=== PATIENT | male | born 1945 | race Caucasian/White ===

== ENCOUNTER 2018-10-06 18:26 | Observation (INO) | payer MEDICARE, BC ==
[~2018-10-06] VITALS: Ht 175.3 cm; Wt 84.4 kg
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
[2018-10-06 19:00] VITALS: BP_SYST 167; BP_DIAS 10; BP_DIAS 70
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
[2018-10-06] MEDS ORDERED: CARV3.122 PO (19:31)
[2018-10-06] MEDS ORDERED: INSU100V16 (19:31)
[2018-10-06] MEDS ORDERED: TACR0.5C6 PO (19:31)
[2018-10-06] MEDS ORDERED: TAMSULOSIN (19:31)
[2018-10-06] MEDS ORDERED: SIMV40TA4 PO (19:31)
[2018-10-06] MEDS ORDERED: MYCO360T3 PO (19:31)
[2018-10-06] MEDS ORDERED: SIRO1TAB4 (19:31)
[2018-10-06] MEDS ORDERED: FINA5TAB6 PO (19:31)
[2018-10-06] MEDS ORDERED: CLOP75TA28 PO (19:31)
[2018-10-06] MEDS ORDERED: CARV6.252 (19:31)
[2018-10-06] MEDS ORDERED: LEVO175T2 PO (19:31)
[2018-10-06 19:43] LABS: HEMOGLOBIN 13.8 G/DL (13.3-17.7); MEAN PLATELET VOLUME 9.7 FL (7.4-10.4); WHITE BLOOD COUNT 11.8 10^3/uL (4.3-11.0)
[2018-10-06 20:00] VITALS: BP 117/58
[2018-10-06 20:48] LABS: BILIRUBIN,TOTAL 0.4 MG/DL (0.1-1.0); CREATININE SERUM 1.51 MG/DL (0.60-1.30)
[2018-10-06 20:49] LABS: ALBUMIN 3.8 GM/DL (3.2-4.5); TOTAL PROTEIN 8.1 GM/DL (6.4-8.2)
[2018-10-06 21:00] VITALS: BP 156/84
[2018-10-06] MEDS ORDERED: DOCU-143 PO (21:35)
[2018-10-06] MEDS ORDERED: ASPIRIN 81 MG CHEW (CHILDREN'S ASA) PO STA (22:08)
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
[2018-10-07 01:01] VITALS: BP 104/58
[2018-10-07 04:59] VITALS: BP 145/77
[2018-10-07 06:07] LABS: BASOPHILS % (AUTO) 0 % (0-10); EOSINOPHILS # (AUTO) 0.2 10^3/uL (0.0-0.3); EOSINOPHILS % (AUTO) 2 % (0-10); HEMATOCRIT 41 % (40-54); HEMOGLOBIN 12.9 G/DL (13.3-17.7); LYMPHOCYTES # (AUTO) 1.6 X 10^3 (1.0-4.0); LYMPHOCYTES % (AUTO) 15 % (12-44); MEAN CORPUSCULAR HEMOGLOBIN 29 PG (25-34); MEAN CORPUSCULAR HGB CONC 32 G/DL (32-36); MEAN CORPUSCULAR VOLUME 91 FL (80-99); MEAN PLATELET VOLUME 9.6 FL (7.4-10.4); MONOCYTES # (AUTO) 1.6 X 10^3 (0.0-1.0); MONOCYTES % (AUTO) 15 % (0-12); NEUTROPHILS # (AUTO) 7.2 X 10^3 (1.8-7.8); NEUTROPHILS % (AUTO) 68 % (42-75); PLATELET COUNT 230 10^3/uL (130-400); RED CELL DISTRIBUTION WIDTH 13.6 % (10.0-14.5); WHITE BLOOD COUNT 10.6 10^3/uL (4.3-11.0)
[2018-10-07 06:35] LABS: ALBUMIN 3.5 GM/DL (3.2-4.5); BILIRUBIN,TOTAL 0.4 MG/DL (0.1-1.0); CALCIUM 9.6 MG/DL (8.5-10.1); CREATININE SERUM 1.52 MG/DL (0.60-1.30); POTASSIUM 5.7 MMOL/L (3.6-5.0); TOTAL PROTEIN 7.1 GM/DL (6.4-8.2)
[2018-10-07 08:00] VITALS: BP 142/65
[2018-10-07] MEDS ORDERED: FLU QUADRIvalent (5+ YOA) 2018-2019 (AFLURIA) 0.5 ML IM ONE (08:00)
[2018-10-07] MEDS ORDERED: TAMS0.4C98 PO (09:09)
[2018-10-07] MEDS ORDERED: FAMO-119 PO (09:09)
[2018-10-07] MEDS ORDERED: ASPI-983 PO (09:09)
--- NOTE | 2018-10-07 09:12 | NUR ---
SPOKE WITH THE PATIENT ABOUT HIS MEDICATIONS, HE HAD A LIST WITH HIM WELL WE COMPARED WITH THE EXT MED HX. PATIENT FILLED SIROLIMUS 1MG #60 10-05-18, THEY HAVE NOT RECEIVED OR STARTED THIS YET BUT IT IS TO REPLACE THE MYFORTIC ACCORDING TO THE PATIENTS FAMILY. I DID NOT INCLUDE IT ON THE MED REC AT THIS TIME SINCE IT HAS NOT BEEN STARTED. IT IS COMING TO THE PATIENT VIA MAIL ORDER. HE TAKES THE FOLLOWING OTC: ASPIRIN 81MG DAILY COLACE 100MG BID PEPCID BID
[2018-10-07 10:19] VITALS: BP 142/65
[2018-10-07 12:00] VITALS: BP 139/70
[2018-10-07] MEDS ORDERED: INSULIN VIAL ASPART for PUMP 100 UNIT/ML VIAL SQ SCH (12:00)
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
[2018-10-07] MEDS ORDERED: ENOXAPARIN 40 MG/0.4 ML (LOVENOX) SYR SQ SCH (13:00)
--- NOTE | 2018-10-07 14:38 | Discharge Instructions ---
Discharge [facility] Discharge Medications Continued Medications: Aspirin (Aspirin EC) 81 Mg Tablet.dr 81 MG PO DAILY, TAB Carvedilol (Carvedilol) 3.125 Mg Tablet 3.125 MG PO BID, TAB Clopidogrel Bisulfate (Clopidogrel) 75 Mg Tablet 75 MG PO DAILY, TAB Docusate Sodium (Colace) 100 Mg Capsule 100 MG PO BID, CAP Famotidine (Pepcid) 20 Mg Tablet 20 MG PO BID, TAB Finasteride (Finasteride) 5 Mg Tablet 5 MG PO DAILY, TAB Insulin Aspart (Novolog) 100 Unit/1 Ml Susp PER INSULIN PUMP, EA Levothyroxine Sodium (Synthroid) 175 Mcg Tablet 175 MCG PO DAILY, TAB Mycophenolate Sodium (Mycophenolic Acid) 360 Mg Tablet.dr 360 MG PO BID, TAB Simvastatin (Simvastatin) 40 Mg Tablet 40 MG PO HS, TAB Tacrolimus (Tacrolimus) 0.5 Mg Capsule 1 MG PO BID, CAP TAKES 2 (0.5MG) CAPSULES Tamsulosin HCl (Flomax) 0.4 Mg Cap 0.4 MG PO HS, CAP Patient Instructions Goal/Follow Up Appt: Follow up with Belia Villatoro on Friday 10/13 at 11:20 am. Recommend calling [facility] to discuss pump settings before visit in November. Follow up with Cardiology as soon as possible. Patient Instructions: Have labwork drawn at clinic tomorrow to recheck potassium and renal function. Return to [facility] For: Fever, confusion, shortness of breath, chest pain Activity & Diet Discharge Diet: ADA Diet Activity as Tolerated: Yes ECHO GEE MD Oct 07, 2018 13:28
[2018-10-07 15:15] VITALS: BP 139/70
--- NOTE | 2018-10-07 15:15 | NUR ---
MARLA CUEVAS demonstrates understanding of discharge instructions and accurately returns instructions upon questioning. Copy of Post-Discharge Instructions given to PT. MARLA CUEVAS is able to manage continuing needs after discharge. Patients belongings returned to PT. Patient discharged from [facility] on 10/07/18 at 15:15. MARLA CUEVAS left floor via W/C, accompanied by STAFF AND FAMILY PER AUTO.
[2018-10-07] MEDS ORDERED: MYCOPHENOLATE SODIUM 360 MG PO SCH (21:00)
[2018-10-07] MEDS ORDERED: CARVEDILOL 3.125 MG (COREG) TABLET PO SCH (21:00)
[2018-10-07] MEDS ORDERED: SIMvastatin 40 MG (ZOCOR) TAB PO SCH (21:00)
[2018-10-07] MEDS ORDERED: TAMSULOSIN 0.4 MG (FLOMAX) CAP PO SCH (21:00)
[2018-10-07] MEDS ORDERED: TACROLIMUS 0.5 MG (PROGRAF) CAP NON-FORMULARY PO SCH (21:00)
[2018-10-07] MEDS ORDERED: DOCUSATE SODIUM 100 MG (COLACE) CAP PO SCH (21:00)
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
[2018-10-08] MEDS ORDERED: LEVOTHYROXINE 75 MCG (LEVOTHROID) TABLET PO SCH (06:30)
[2018-10-08] MEDS ORDERED: LEVOTHYROXINE 100 MCG (LEVOTHROID) TAB PO SCH (06:30)
[2018-10-08] MEDS ORDERED: FAMOTIDINE 20 MG (PEPCID) TABLET PO SCH (09:00)
[2018-10-08] MEDS ORDERED: CLOPIDOGREL 75 MG (PLAVIX) TABLET PO SCH (09:00)
[2018-10-08] MEDS ORDERED: ASPIRIN E.C. 81 MG (ECOTRIN) TAB PO SCH (09:00)
[2018-10-08] MEDS ORDERED: FINASTERIDE (PROSCAR) 5 MG TAB PO SCH (09:00)
== END 2018-10-07 14:38 | disposition home or self-care (01) ==
LOC: EDUNIT# 18:26 → ER FS 18:29 → 4TH 22:55
PROVIDERS: ADMIT Family Medicine; ATTEND Family Medicine
DX: E11.65 Type 2 diabetes mellitus with hyperglycemia (principal); I25.10 Atherosclerotic heart disease of native coronary artery without angina pectoris; N18.9 Chronic kidney disease, unspecified; E87.5 Hyperkalemia; E78.5 Hyperlipidemia, unspecified; I44.7 Left bundle-branch block, unspecified; H60.12 Cellulitis of left external ear; Z79.899 Other long term (current) drug therapy; Z88.0 Allergy status to penicillin; Z79.4 Long term (current) use of insulin; Z94.0 Kidney transplant status; Z79.82 Long term (current) use of aspirin; Z95.5 Presence of coronary angioplasty implant and graft; Z87.891 Personal history of nicotine dependence
CPT/HCPCS: 36415; 71045; 80053; 82962; 84132; 84484; 85025; 85027; G0378

== ENCOUNTER → 2018-11-05 | Outpatient (CLI) | payer MEDICARE ==
[~2018-11-05] MED LIST: ASPI-983 PO; CARV3.122 PO; CARV6.252; CLOP75TA28 PO; DOCU-143 PO; FAMO-119 PO; FINA5TAB6 PO; INSU100V16; LEVO175T2 PO; MYCO360T3 PO; SIMV40TA4 PO; SIRO1TAB4; TACR0.5C6 PO; TAMS0.4C98 PO; TAMSULOSIN
== END ==
LOC: LAB 14:56
PROVIDERS: ATTEND Surgery
DX: E11.622 Type 2 diabetes mellitus with other skin ulcer (principal); L97.222 Non-pressure chronic ulcer of left calf with fat layer exposed; I87.332 Chronic venous hypertension (idiopathic) with ulcer and inflammation of left lower extremity; I87.321 Chronic venous hypertension (idiopathic) with inflammation of right lower extremity; I70.242 Atherosclerosis of native arteries of left leg with ulceration of calf; Z94.0 Kidney transplant status; Z57.5 Occupational exposure to toxic agents in other industries
CPT/HCPCS: 36415; 83036

== ENCOUNTER → 2018-11-05 | Outpatient (CLI) | payer MEDICARE | LOC: WOUNDCARE 13:04 | PROVIDERS: ATTEND Surgery | DX: E11.622 Type 2 diabetes mellitus with other skin ulcer (principal); L97.222 Non-pressure chronic ulcer of left calf with fat layer exposed; I87.332 Chronic venous hypertension (idiopathic) with ulcer and inflammation of left lower extremity; I87.321 Chronic venous hypertension (idiopathic) with inflammation of right lower extremity; I70.242 Atherosclerosis of native arteries of left leg with ulceration of calf; Z94.0 Kidney transplant status; Z57.5 Occupational exposure to toxic agents in other industries | CPT/HCPCS: 11042; 11045; 87070; 87075; 87077; 87186; 87205 ==

== ENCOUNTER → 2018-11-12 | Outpatient (CLI) | payer MEDICARE | LOC: WOUNDCARE 08:37 | PROVIDERS: ATTEND Surgery | DX: E11.622 Type 2 diabetes mellitus with other skin ulcer (principal); L97.222 Non-pressure chronic ulcer of left calf with fat layer exposed; I87.332 Chronic venous hypertension (idiopathic) with ulcer and inflammation of left lower extremity; I87.321 Chronic venous hypertension (idiopathic) with inflammation of right lower extremity; I70.242 Atherosclerosis of native arteries of left leg with ulceration of calf; Z94.0 Kidney transplant status; Z77.098 Contact with and (suspected) exposure to other hazardous, chiefly nonmedicinal, chemicals | CPT/HCPCS: 11042; 11045 ==

== ENCOUNTER → 2018-11-26 | Outpatient (CLI) | payer MEDICARE | LOC: WOUNDCARE 08:45 | PROVIDERS: ATTEND Surgery | DX: E11.622 Type 2 diabetes mellitus with other skin ulcer (principal); L97.222 Non-pressure chronic ulcer of left calf with fat layer exposed; I87.323 Chronic venous hypertension (idiopathic) with inflammation of bilateral lower extremity; Z94.0 Kidney transplant status; Z77.098 Contact with and (suspected) exposure to other hazardous, chiefly nonmedicinal, chemicals | CPT/HCPCS: 11042; 11045; 87070; 87205 ==

== ENCOUNTER → 2018-12-03 | Outpatient (CLI) | payer MEDICARE | LOC: WOUNDCARE 09:25 | PROVIDERS: ATTEND Surgery | DX: E11.622 Type 2 diabetes mellitus with other skin ulcer (principal); L97.222 Non-pressure chronic ulcer of left calf with fat layer exposed; I87.332 Chronic venous hypertension (idiopathic) with ulcer and inflammation of left lower extremity; I87.321 Chronic venous hypertension (idiopathic) with inflammation of right lower extremity; Z94.0 Kidney transplant status; Z77.098 Contact with and (suspected) exposure to other hazardous, chiefly nonmedicinal, chemicals | CPT/HCPCS: 11042; 11045 ==

== ENCOUNTER → 2018-12-08 | Outpatient (CLI) | payer MEDICARE | LOC: WOUNDCARE 13:52 | PROVIDERS: ATTEND Nurse Practitioner | DX: E11.622 Type 2 diabetes mellitus with other skin ulcer (principal); I87.332 Chronic venous hypertension (idiopathic) with ulcer and inflammation of left lower extremity; L97.222 Non-pressure chronic ulcer of left calf with fat layer exposed; I87.321 Chronic venous hypertension (idiopathic) with inflammation of right lower extremity; Z94.0 Kidney transplant status; Z77.098 Contact with and (suspected) exposure to other hazardous, chiefly nonmedicinal, chemicals | CPT/HCPCS: 15271 ==

== ENCOUNTER 2018-12-09 10:44 | Outpatient (RCR) | payer MEDICARE | END 2019-01-11 | disposition home or self-care (01) | LOC: ONC 10:44 | PROVIDERS: ATTEND Radiology Radiation Oncology | DX: Z51.0 Encounter for antineoplastic radiation therapy (principal); C77.3 Secondary and unspecified malignant neoplasm of axilla and upper limb lymph nodes; C44.529 Squamous cell carcinoma of skin of other part of trunk | CPT/HCPCS: 77290; 77295; 77300; 77334; 77336; 77417; 77470; 99204 ==

== ENCOUNTER → 2018-12-14 | Outpatient (CLI) | payer MEDICARE | LOC: WOUNDCARE 14:58 | PROVIDERS: ATTEND Surgery | DX: E11.622 Type 2 diabetes mellitus with other skin ulcer (principal); L97.222 Non-pressure chronic ulcer of left calf with fat layer exposed; I87.332 Chronic venous hypertension (idiopathic) with ulcer and inflammation of left lower extremity; I87.321 Chronic venous hypertension (idiopathic) with inflammation of right lower extremity; Z94.0 Kidney transplant status; Z77.098 Contact with and (suspected) exposure to other hazardous, chiefly nonmedicinal, chemicals | CPT/HCPCS: 15271 ==

== ENCOUNTER → 2018-12-21 | Outpatient (CLI) | payer MEDICARE | LOC: WOUNDCARE 12:32 | PROVIDERS: ATTEND Surgery | DX: E11.622 Type 2 diabetes mellitus with other skin ulcer (principal); L97.222 Non-pressure chronic ulcer of left calf with fat layer exposed; I87.332 Chronic venous hypertension (idiopathic) with ulcer and inflammation of left lower extremity; I87.321 Chronic venous hypertension (idiopathic) with inflammation of right lower extremity; Z94.0 Kidney transplant status; Z77.098 Contact with and (suspected) exposure to other hazardous, chiefly nonmedicinal, chemicals | CPT/HCPCS: 15271 ==

== ENCOUNTER → 2019-01-04 | Outpatient (CLI) | payer MEDICARE | LOC: WOUNDCARE 14:21 | PROVIDERS: ATTEND Surgery | DX: E11.628 Type 2 diabetes mellitus with other skin complications (principal); L97.222 Non-pressure chronic ulcer of left calf with fat layer exposed; I87.333 Chronic venous hypertension (idiopathic) with ulcer and inflammation of bilateral lower extremity; Z94.0 Kidney transplant status; Z77.098 Contact with and (suspected) exposure to other hazardous, chiefly nonmedicinal, chemicals | CPT/HCPCS: 15271 ==

== ENCOUNTER → 2019-01-10 | Outpatient (CLI) | payer MEDICARE | LOC: WOUNDCARE 08:08 | PROVIDERS: ATTEND Surgery | DX: E11.622 Type 2 diabetes mellitus with other skin ulcer (principal); I87.333 Chronic venous hypertension (idiopathic) with ulcer and inflammation of bilateral lower extremity; L97.222 Non-pressure chronic ulcer of left calf with fat layer exposed; Z94.0 Kidney transplant status; Z77.098 Contact with and (suspected) exposure to other hazardous, chiefly nonmedicinal, chemicals | CPT/HCPCS: 11042 ==

== ENCOUNTER → 2019-01-17 | Outpatient (CLI) | payer MEDICARE | LOC: WOUNDCARE 08:10 | PROVIDERS: ATTEND Surgery | DX: E11.622 Type 2 diabetes mellitus with other skin ulcer (principal); I87.333 Chronic venous hypertension (idiopathic) with ulcer and inflammation of bilateral lower extremity; L97.222 Non-pressure chronic ulcer of left calf with fat layer exposed; Z94.0 Kidney transplant status; Z77.098 Contact with and (suspected) exposure to other hazardous, chiefly nonmedicinal, chemicals | CPT/HCPCS: 11042; 87070; 87077; 87205 ==

== ENCOUNTER → 2019-01-24 | Outpatient (CLI) | payer MEDICARE | LOC: WOUNDCARE 08:07 | PROVIDERS: ATTEND Surgery | DX: E11.622 Type 2 diabetes mellitus with other skin ulcer (principal); I87.333 Chronic venous hypertension (idiopathic) with ulcer and inflammation of bilateral lower extremity; L97.222 Non-pressure chronic ulcer of left calf with fat layer exposed; E11.621 Type 2 diabetes mellitus with foot ulcer; L97.422 Non-pressure chronic ulcer of left heel and midfoot with fat layer exposed; Z94.0 Kidney transplant status; Z77.098 Contact with and (suspected) exposure to other hazardous, chiefly nonmedicinal, chemicals | CPT/HCPCS: 15271 ==

== ENCOUNTER 2019-01-29 04:40 | Emergency (ER) | payer MEDICARE, BC ==
[~2019-01-29] VITALS: Ht 175.3 cm; Wt 78.9 kg
--- OUTSIDE RECORDS SUMMARY | 2019-01-29 04:45 | XMS REPORT ---
Author Author CHRISTOPHER SCHULTZ [facility] [address] Address [address] [place] [address] Care Team Providers Care Litigation Associate Name Role Phone MARION, CHRISTOPHER Unavailable PROBLEMS Type Condition ICD9-CM Code SLV05-IF Code Onset Dates Condition Status SNOMED Code Problem Hyperlipemia E78.5 0 93675427 Problem Proteinuria R80.9 0 22567924 Problem Anemia D64.9 Aug, 0 668216886 Problem CAD (coronary artery disease) I25.10 Apr, 0 11459039 Problem HTN (hypertension), benign I10 Jul, 0 27073743 Problem Hyperkalemia E87.5 Apr, 0 62493706 Problem Hypothyroidism E03.9 Jul, 0 05302031 Problem Metastatic squamous cell carcinoma 199.1 Jun, 0 99978345 Problem Hypothermia T68.XXXA Aug, 0 296650460 Problem Hypoglycemia E16.2 Apr, 0 833924304 Problem PAF (paroxysmal atrial fibrillation) I48.0 Oct, 0 95045020 Problem HTN (hypertension), benign 401.1 Jul, 0 56707551 Problem Hypoglycemia 251.2 Apr, 0 308928128 Problem Anemia 285.9 Aug, 0 009406061 Problem Hypothyroidism 244.9 Jul, 0 45647840 Problem CAD (coronary artery disease) 414.00 Apr, 0 88418153 Problem Hyperlipemia 272.4 0 33066239 Problem Hypothermia 991.6 Aug, 0 815494771 Problem Proteinuria 791.0 0 50881248 Problem Metastatic squamous cell carcinoma C79.9 Jun, 0 63212903 Problem Elevated myoglobin level 790.6 Apr, 0 743177297 Problem Diabetes mellitus, type 2 E11.9 0 88235642 Problem History of renal transplant Z94.0 Apr, 0 930703025 Problem Diabetes mellitus, type 2 250.00 0 18845328 Problem Leg ulcer, left L97.929 Active [id number] Problem PAF (paroxysmal atrial fibrillation) 427.31 13 Oct, 2016 0 58557959 Problem Hyperkalemia 276.7 13 Apr, 2016 0 33907007 Problem History of renal transplant V42.0 30 Apr, 2013 0 202311812 Problem LBBB (left bundle branch block) 426.3 13 Oct, 2016 0 42592716 Problem Elevated myoglobin level R89.7 13 Apr, 2016 0 Problem LBBB (left bundle branch block) I44.7 13 Oct, 2016 0 45839425 ALLERGIES No Information ENCOUNTERS Encounter Location Date Diagnosis [address] [address] Nov, [address] [address] Nov, Leg ulcer, left L97.929 ; Hospital discharge follow-up Z09 and Diabetes mellitus, type 2 E11.9 [facility] [id number] [place] [id number] Oct, Hyperkalemia E87.5 [facility] [id number] [place] [id number] Aug, [facility] [id number] [place] [phone] Jul, [facility] [id number] [address] Jul, [facility] [id number] [place] [address] Jul, [facility] [id number] [place] [address] Jul, [facility] [id number] [place] [address] Jul, [facility] [id number] [place] [address] Jul, [facility] [id number] [address] Jul, [facility] [id number] [address] Jun, [facility] [id number] [address] Jun, [facility] [id number] [address] Jun, [facility] [id number] [place] [address] Jun, [facility] [id number] [address] Jun, [facility] [id number] [place] [address] Jun, IMMUNIZATIONS No Known Immunizations SOCIAL HISTORY Never Assessed REASON FOR VISIT PLAN OF CARE VITAL SIGNS MEDICATIONS Unknown Medications RESULTS No Results PROCEDURES No Known procedures INSTRUCTIONS MEDICATIONS ADMINISTERED No Known Medications
--- OUTSIDE RECORDS SUMMARY | 2019-01-29 04:46 | XMS REPORT | Continuity of Care Document ---
Author Organization Unknown Address Unknown Allergies Active Description Code Type Severity Reaction Onset Reported/Identified Relationship to Patient Clinical Status Yes PENICILLIN PENICILLIN Unknown N/A 10/06/2018 Yes Penicillins [id number] Drug Allergy Unknown N/A 10/07/2018 Medications There is no data. Problems Date Dx Coded Attending Type Code Diagnosis Diagnosed By 10/07/2018 ECHO GEE MD, Ot E11.65 TYPE 2 DIABETES MELLITUS WITH HYPERGLYCE 10/07/2018 ECHO GEE MD, Ot E78.5 HYPERLIPIDEMIA, UNSPECIFIED 10/07/2018 ECHO GEE MD, Ot E87.5 HYPERKALEMIA 10/07/2018 ECHO GEE MD, Ot H60.12 CELLULITIS OF LEFT EXTERNAL EAR 10/07/2018 ECHO GEE MD, Ot I25.10 ATHSCL HEART DISEASE OF [place] CORONARY 10/07/2018 ECHO GEE MD, Ot I44.7 LEFT BUNDLE-BRANCH BLOCK, UNSPECIFIED 10/07/2018 ECHO GEE MD, Ot N18.9 CHRONIC KIDNEY DISEASE, UNSPECIFIED 10/07/2018 ECHO GEE MD Ot Z79.4 DIAGRAM CLERK (CURRENT) USE OF INSULIN 10/07/2018 ECHO GEE MD Ot Z79.82 DIAGRAM CLERK (CURRENT) USE OF ASPIRIN 10/07/2018 ECHO GEE MD, Ot Z79.899 OTHER ALF (CURRENT) DRUG THERAPY 10/07/2018 ECHO GEE MD, Ot Z87.891 PERSONAL HISTORY OF NICOTINE DEPENDENCE 10/07/2018 ECHO GEE MD, Ot Z88.0 ALLERGY STATUS TO PENICILLIN 10/07/2018 ECHO GEE MD, Ot Z94.0 KIDNEY TRANSPLANT STATUS 10/07/2018 ECHO GEE MD, Ot Z95.5 PRESENCE OF CORONARY ANGIOPLASTY IMPLANT 10/07/2018 MARLEN MD, ECHO N Ot E11.65 TYPE 2 DIABETES MELLITUS WITH HYPERGLYCE 10/07/2018 ECHO GEE MD, Ot E78.5 HYPERLIPIDEMIA, UNSPECIFIED 10/07/2018 ECHO GEE MD, Ot E87.5 HYPERKALEMIA 10/07/2018 ECHO GEE MD, Ot H60.12 CELLULITIS OF LEFT EXTERNAL EAR 10/07/2018 ECHO GEE MD, Ot I25.10 ATHSCL HEART DISEASE OF [place] CORONARY 10/07/2018 ECHO GEE MD, Ot I44.7 LEFT BUNDLE-BRANCH BLOCK, UNSPECIFIED 10/07/2018 ECHO GEE MD, Ot N18.9 CHRONIC KIDNEY DISEASE, UNSPECIFIED 10/07/2018 ECHO GEE MD, Ot Z79.4 ALF (CURRENT) USE OF INSULIN 10/07/2018 ECHO GEE MD, Ot Z79.82 DIAGRAM CLERK (CURRENT) USE OF ASPIRIN 10/07/2018 ECHO GEE MD, Ot Z79.899 OTHER ALF (CURRENT) DRUG THERAPY 10/07/2018 ECHO GEE MD, Ot Z87.891 PERSONAL HISTORY OF NICOTINE DEPENDENCE 10/07/2018 ECHO GEE MD, Ot Z88.0 ALLERGY STATUS TO PENICILLIN 10/07/2018 ECHO GEE MD, Ot Z94.0 KIDNEY TRANSPLANT STATUS 10/07/2018 ECHO GEE MD, Ot Z95.5 PRESENCE OF CORONARY ANGIOPLASTY IMPLANT 11/04/2018 MAYE ZENG MD, Ot C44.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 11/04/2018 MAYE ZENG MD, Ot 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 AXILLA AN 11/04/2018 MAYE ZENG MD, Ot Z51.0 ENCOUNTER FOR ANTINEOPLASTIC RADIATION T 11/08/2018 BELLA ECHAVARRIA MD Ot E11.622 TYPE 2 DIABETES MELLITUS WITH OTHER SKIN 11/08/2018 BELLA ECHAVARRIA MD, Ot I70.242 ATHSCL [place] ARTERIES OF LEFT LEG W ULC 11/08/2018 BELLA ECHAVARRIA MD, Ot I87.321 CHRONIC VENOUS HYPERTENSION W INFLAMMATI 11/08/2018 BELLA ECHAVARRIA MD, Ot I87.332 CHRONIC VENOUS HTN W ULCER AND INFLAMMAT 11/08/2018 BELLA ECHAVARRIA MD, Ot L97.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 ULCER OF LEFT CALF 11/08/2018 BELAL ECHAVARRIA MD, Ot Z57.5 OCCUPATIONAL EXPOSURE TO TOXIC AGENTS IN 11/08/2018 BELLA ECHAVARRIA MD, Ot Z94.0 KIDNEY TRANSPLANT STATUS 11/10/2018 BELLA ECHAVARRIA MD, Ot E11.622 TYPE 2 DIABETES MELLITUS WITH OTHER SKIN 11/10/2018 BLELA ECHAVARRIA MD, Ot 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 11/15/2018 BELLA ECHAVARRIA MD, Ot I87.321 CHRONIC VENOUS HYPERTENSION W INFLAMMATI 11/15/2018 BELLA ECHAVARRIA MD, Ot I87.332 CHRONIC VENOUS HTN W ULCER AND INFLAMMAT 11/15/2018 BELLA ECHAVARRIA MD, Ot L97.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 ULCER OF LEFT CALF 11/15/2018 BELLA ECHAVARRIA MD, Ot Z77.098 CONTACT W AND EXPSR TO OT HAZARD, CHIEF 11/15/2018 BELLA ECHAVARRIA MD, Ot Z94.0 KIDNEY TRANSPLANT STATUS 11/24/2018 KARRI LINDQUIST, MAYE Carlson Ot C44.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 11/24/2018 MAYE ZENG MD, Ot 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 AXILLA AN 11/24/2018 MAYE ZENG MD, Ot Z51.0 ENCOUNTER FOR ANTINEOPLASTIC RADIATION T 11/24/2018 BELLA ECHAVARRIA MD, Ot E11.622 TYPE 2 DIABETES MELLITUS WITH OTHER SKIN 11/24/2018 BELLA ECHAVARRIA MD, Ot 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 11/24/2018 BELLA ECHAVARRIA MD, Ot I87.321 CHRONIC VENOUS HYPERTENSION W INFLAMMATI 11/24/2018 BELLA ECHAVARRIA MD, Ot I87.332 CHRONIC VENOUS HTN W ULCER AND INFLAMMAT 11/24/2018 BELLA ECHAVARRIA MD Ot L97.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 ULCER OF LEFT CALF 11/24/2018 BELLA ECHAVARRIA MD, Ot Z77.098 CONTACT W AND EXPSR TO OTH HAZARD, CHIEF 11/24/2018 BELLA ECHAVARRIA MD, Ot Z94.0 KIDNEY TRANSPLANT STATUS 11/26/2018 KARRI LINDQUIST, MAYE Carlson Ot C44.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 11/26/2018 KARRI LINDQUIST, MAYE Carlson Ot 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 AXILLA AN 11/26/2018 KARRI LINDQUIST, MAYE Carlson Ot Z51.0 ENCOUNTER FOR ANTINEOPLASTIC RADIATION T 11/26/2018 BELLA ECHAVARRIA MD Ot E11.622 TYPE 2 DIABETES MELLITUS WITH OTHER SKIN 11/26/2018 BELLA ECHAVARRIA MD, Ot 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 11/26/2018 BELLA ECHAVARRIA MD, Ot I87.321 CHRONIC VENOUS HYPERTENSION W INFLAMMATI 11/26/2018 BELLA ECHAVARRIA MD, Ot I87.332 CHRONIC VENOUS HTN W ULCER AND INFLAMMAT 11/26/2018 BELLA ECHAVARRIA MD, Ot L97.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 ULCER OF LEFT CALF 11/26/2018 BELLA ECHAVARRIA MD, Ot Z57.5 OCCUPATIONAL EXPOSURE TO TOXIC AGENTS IN 11/26/2018 BELLA ECHAVARRIA MD, Ot Z94.0 KIDNEY TRANSPLANT STATUS 11/26/2018 BELLA ECHAVARRIA MD, Ot E11.622 TYPE 2 DIABETES MELLITUS WITH OTHER SKIN 11/26/2018 BELLA ECHAVARRIA MD, Ot 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 11/29/2018 BELLA ECHAVARRIA MD, Ot I87.321 CHRONIC VENOUS HYPERTENSION W INFLAMMATI 11/29/2018 BELLA ECHAVARRIA MD, Ot I87.332 CHRONIC VENOUS HTN W ULCER AND INFLAMMAT 11/29/2018 BELLA ECHAVARRIA MD Ot L97.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 ULCER OF LEFT CALF 11/29/2018 BELLA ECHAVARRIA MD, Ot Z57.5 OCCUPATIONAL EXPOSURE TO TOXIC AGENTS IN 11/29/2018 BELLA ECHAVARRIA MD Ot Z94.0 KIDNEY TRANSPLANT STATUS 11/30/2018 BELLA ECHAVARRIA MD, Ot E11.622 TYPE 2 DIABETES MELLITUS WITH OTHER SKIN 11/30/2018 BELLA ECHAVARRIA MD, Ot I87.323 CHRONIC VENOUS HTN W INFLAMMATION OF RAINER 11/30/2018 BELLA ECHAVARRIA MD Ot L97.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 ULCER OF LEFT CALF 11/30/2018 BELLA ECHAVARRIA MD, Ot Z77.098 CONTACT W AND EXPSR TO OTH HAZARD, CHIEF 11/30/2018 BELLA ECHAVARRIA MD, Ot Z94.0 KIDNEY TRANSPLANT STATUS 12/01/2018 BELLA ECHAVARRIA MD, Ot E11.622 TYPE 2 DIABETES MELLITUS WITH OTHER SKIN 12/01/2018 BELLA ECHAVARRIA MD, Ot 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 12/02/2018 BELLA ECHAVARRIA MD, Ot I87.321 CHRONIC VENOUS HYPERTENSION W INFLAMMATI 12/02/2018 BELLA ECHAVARRIA MD, Ot I87.332 CHRONIC VENOUS HTN W ULCER AND INFLAMMAT 12/02/2018 BELLA ECHAVARRIA MD, Ot L97.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 ULCER OF LEFT CALF 12/02/2018 BELLA ECHAVARRIA MD, Ot Z77.098 CONTACT W AND EXPSR TO OTH HAZARD, CHIEF 12/02/2018 BELLA ECHAVARRIA MD, Ot Z94.0 KIDNEY TRANSPLANT STATUS 12/07/2018 BELLA ECHAVARRIA MD, Ot E11.622 TYPE 2 DIABETES MELLITUS WITH OTHER SKIN 12/07/2018 BELLA ECHAVARRIA MD Ot I87.321 CHRONIC VENOUS HYPERTENSION W INFLAMMATI 12/07/2018 BELLA ECHAVARRIA MD, Ot I87.332 CHRONIC VENOUS HTN W ULCER AND INFLAMMAT 12/07/2018 BELLA ECHAVARRIA MD Ot L97.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 ULCER OF LEFT CALF 12/07/2018 BELLA ECHAVARRIA MD, Ot Z77.098 CONTACT W AND EXPSR TO OTH HAZARD, CHIEF 12/07/2018 BELLA ECHAVARRIA MD, Ot Z94.0 KIDNEY TRANSPLANT STATUS 12/07/2018 BELLA ECHAVARRIA MD, Ot E11.622 TYPE 2 DIABETES MELLITUS WITH OTHER SKIN 12/07/2018 BELLA ECHAVARRIA MD Ot 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 12/07/2018 BELLA ECHAVARRIA MD, Ot I87.321 CHRONIC VENOUS HYPERTENSION W INFLAMMATI 12/07/2018 BELLA ECHAVARRIA MD, Ot I87.332 CHRONIC VENOUS HTN W ULCER AND INFLAMMAT 12/07/2018 BELLA ECHAVARRIA MD, Ot L97.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 ULCER OF LEFT CALF 12/07/2018 BELLA ECHAVARRIA MD, Ot Z57.5 OCCUPATIONAL EXPOSURE TO TOXIC AGENTS IN 12/07/2018 BELLA ECHAVARRIA MD, Ot Z94.0 KIDNEY TRANSPLANT STATUS 12/10/2018 MAYE ZENG MD, Ot C44.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 12/10/2018 MAYE ZENG MD, Ot 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 AXILLA AN 12/10/2018 MAYE ZENG MD, Ot Z51.0 ENCOUNTER FOR ANTINEOPLASTIC RADIATION T 12/10/2018 BELLA ECHAVARRIA MD, Ot E11.622 TYPE 2 DIABETES MELLITUS WITH OTHER SKIN 12/10/2018 BELLA ECHAVARRIA MD, Ot 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 12/10/2018 BELLA ECHAVARRIA MD, Ot I87.321 CHRONIC VENOUS HYPERTENSION W INFLAMMATI 12/10/2018 BELLA ECHAVARRIA MD, Ot I87.332 CHRONIC VENOUS HTN W ULCER AND INFLAMMAT 12/10/2018 BELLA ECHAVARRIA MD, Ot L97.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 ULCER OF LEFT CALF 12/10/2018 BELLA ECHAVARRIA MD, Ot Z57.5 OCCUPATIONAL EXPOSURE TO TOXIC AGENTS IN 12/10/2018 BELLA ECHAVARRIA MD, Ot Z94.0 KIDNEY TRANSPLANT STATUS 12/10/2018 BELLA ECHAVARRIA MD, Ot E11.622 TYPE 2 DIABETES MELLITUS WITH OTHER SKIN 12/10/2018 BELLA ECHAVARRIA MD, Ot I70.242 ATHSCL [place] ARTERIES OF LEFT LEG W ULC 12/10/2018 BELLA ECHAVARRIA MD, Ot I87.321 CHRONIC VENOUS HYPERTENSION W INFLAMMATI 12/10/2018 BELLA ECHAVARRIA MD, Ot I87.332 CHRONIC VENOUS HTN W ULCER AND INFLAMMAT 12/10/2018 BELLA ECHAVARRIA MD, Ot L97.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 ULCER OF LEFT CALF 12/10/2018 BELLA ECHAVARRIA MD, Ot Z57.5 OCCUPATIONAL EXPOSURE TO TOXIC AGENTS IN 12/10/2018 BELLA ECHAVARRIA MD, Ot Z94.0 KIDNEY TRANSPLANT STATUS 12/10/2018 BELLA ECHAVARRIA MD, Ot E11.622 TYPE 2 DIABETES MELLITUS WITH OTHER SKIN 12/10/2018 BELLA ECHAVARRIA MD Ot I70.242 ATHSCL [place] ARTERIES OF LEFT LEG W ULC 12/10/2018 BELLA ECHAVARRIA MD Ot I87.321 CHRONIC VENOUS HYPERTENSION W INFLAMMATI 12/10/2018 BELLA ECHAVARRIA MD Ot I87.332 CHRONIC VENOUS HTN W ULCER AND INFLAMMAT 12/10/2018 BELLA ECHAVARRIA MD Ot L97.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 ULCER OF LEFT CALF 12/10/2018 BELLA ECHAVARRIA MD, Ot Z77.098 CONTACT W AND EXPSR TO OTH HAZARD, CHIEF 12/10/2018 BELLA ECHAVARRIA MD, Ot Z94.0 KIDNEY TRANSPLANT STATUS 12/10/2018 BELLA ECHAVARRIA MD Ot E11.622 TYPE 2 DIABETES MELLITUS WITH OTHER SKIN 12/10/2018 BELLA ECHAVARRIA MD Ot I87.321 CHRONIC VENOUS HYPERTENSION W INFLAMMATI 12/10/2018 BELLA ECHAVARRIA MD, Ot I87.332 CHRONIC VENOUS HTN W ULCER AND INFLAMMAT 12/10/2018 BELLA ECHAVARRIA MD, Ot L97.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 ULCER OF LEFT CALF 12/10/2018 BELLA ECHAVARRIA MD, Ot Z77.098 CONTACT W AND EXPSR TO OTH HAZARD, CHIEF 12/10/2018 BELLA ECHAVARRIA MD, Ot Z94.0 KIDNEY TRANSPLANT STATUS 12/10/2018 BELLA ECHAVARRIA MD, Ot E11.622 TYPE 2 DIABETES MELLITUS WITH OTHER SKIN 12/10/2018 BELLA ECHAVARRIA MD Ot I87.323 CHRONIC VENOUS HTN W INFLAMMATION OF RAINER 12/10/2018 BELLA ECHAVARRIA MD Ot L97.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 ULCER OF LEFT CALF 12/10/2018 BELLA ECHAVARRIA MD, Ot Z77.098 CONTACT W AND EXPSR TO OT HAZARD, CHIEF 12/10/2018 BELLA ECHAVARRIA MD, Ot Z94.0 KIDNEY TRANSPLANT STATUS 12/10/2018 JACEK GRIDER APRN Ot L97.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 ULCER OF LEFT CALF 12/10/2018 JACEK GRIDER APRN Ot E11.622 TYPE 2 DIABETES MELLITUS WITH OTHER SKIN 12/10/2018 JACEK GRIDER APRN Ot I87.321 CHRONIC VENOUS HYPERTENSION W INFLAMMATI 12/10/2018 JACEK GRIDER APRN Ot I87.332 CHRONIC VENOUS HTN W ULCER AND INFLAMMAT 12/10/2018 JACEK GRIDER APRN Ot L97.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 ULCER OF LEFT CALF 12/10/2018 JACEK GRIDER APRN Ot Z77.098 CONTACT W AND EXPSR TO OTH HAZARD, CHIEF 12/10/2018 JACEK GRIDER APRN Ot Z94.0 KIDNEY TRANSPLANT STATUS 12/13/2018 KARRI LINDQUIST, MAYE Carlson Ot C44.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 12/13/2018 KARRI LINDQUIST, MAYE Carlson Ot 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 AXILLA AN 12/13/2018 MAYE ZENG MD, Ot Z51.0 ENCOUNTER FOR ANTINEOPLASTIC RADIATION T 12/13/2018 BELLA ECHAVARRIA MD, Ot E11.622 TYPE 2 DIABETES MELLITUS WITH OTHER SKIN 12/13/2018 BELLA ECHAVARRIA MD, Ot 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 12/13/2018 BELLA ECHAVARRIA MD, Ot I87.321 CHRONIC VENOUS HYPERTENSION W INFLAMMATI 12/13/2018 BELLA ECHAVARRIA MD Ot I87.332 CHRONIC VENOUS HTN W ULCER AND INFLAMMAT 12/13/2018 BELLA ECHAVARRIA MD Ot L97.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 ULCER OF LEFT CALF 12/13/2018 BELLA ECHAVARRIA MD, Ot Z57.5 OCCUPATIONAL EXPOSURE TO TOXIC AGENTS IN 12/13/2018 BELLA ECHAVARRIA MD Ot Z94.0 KIDNEY TRANSPLANT STATUS 12/13/2018 BELLA ECHAVARRIA MD, Ot E11.622 TYPE 2 DIABETES MELLITUS WITH OTHER SKIN 12/13/2018 BELLA ECHAVARRIA MD Ot I70.242 ATHSCL [place] ARTERIES OF LEFT LEG W ULC 12/13/2018 BELLA ECHAVARRIA MD, Ot I87.321 CHRONIC VENOUS HYPERTENSION W INFLAMMATI 12/13/2018 BELLA ECHAVARRIA MD, Ot I87.332 CHRONIC VENOUS HTN W ULCER AND INFLAMMAT 12/13/2018 BELLA ECHAVARRIA MD, Ot L97.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 ULCER OF LEFT CALF 12/13/2018 BELLA ECHAVARRIA MD, Ot Z77.098 CONTACT W AND EXPSR TO OT HAZARD, CHIEF 12/13/2018 BELLA ECHAVARRIA MD, Ot Z94.0 KIDNEY TRANSPLANT STATUS 12/13/2018 BELLA ECHAVARRIA MD, Ot E11.622 TYPE 2 DIABETES MELLITUS WITH OTHER SKIN 12/13/2018 BELLA ECHAVARRIA MD, Ot I87.321 CHRONIC VENOUS HYPERTENSION W INFLAMMATI 12/13/2018 BELLA ECHAVARRIA MD, Ot I87.332 CHRONIC VENOUS HTN W ULCER AND INFLAMMAT 12/13/2018 BELLA ECHAVARRIA MD, Ot L97.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 ULCER OF LEFT CALF 12/13/2018 BELLA ECHAVARRIA MD, Ot Z77.098 CONTACT W AND EXPSR TO OT HAZARD, CHIEF 12/13/2018 BELLA ECHAVARRIA MD, Ot Z94.0 KIDNEY TRANSPLANT STATUS 12/13/2018 BELLA ECHAVARRIA MD, Ot E11.622 TYPE 2 DIABETES MELLITUS WITH OTHER SKIN 12/13/2018 BELLA ECHAVARRIA MD Ot I87.323 CHRONIC VENOUS HTN W INFLAMMATION OF RAINER 12/13/2018 BELLA ECHAVARRIA MD, Ot L97.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 ULCER OF LEFT CALF 12/13/2018 BELLA ECHAVARRIA MD, Ot Z77.098 CONTACT W AND EXPSR TO [facility], CHIEF 12/13/2018 BELLA ECHAVARRIA MD, Ot Z94.0 KIDNEY TRANSPLANT STATUS 12/13/2018 JACEK GRIDER APRN Ot E11.622 TYPE 2 DIABETES MELLITUS WITH OTHER SKIN 12/13/2018 JACEK GRIDER APRN Ot I87.321 CHRONIC VENOUS HYPERTENSION W INFLAMMATI 12/13/2018 JACEK GRIDER APRN Ot I87.332 CHRONIC VENOUS HTN W ULCER AND INFLAMMAT 12/13/2018 JACEK GRIDER APRN Ot L97.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 ULCER OF LEFT CALF 12/13/2018 JACEK GRIDER APRN Ot Z77.098 CONTACT W AND EXPSR TO [facility], CHIEF 12/13/2018 JACEK GRIDER RASHEEDA Ot Z94.0 KIDNEY TRANSPLANT STATUS 12/20/2018 BELLA ECHAVARRIA MD, Ot E11.622 TYPE 2 DIABETES MELLITUS WITH OTHER SKIN 12/20/2018 BELLA ECHAVARRIA MD, Ot I87.323 CHRONIC VENOUS HTN W INFLAMMATION OF RAINER 12/20/2018 BELLA ECHAVARRIA MD, Ot L97.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 ULCER OF LEFT CALF 12/20/2018 BELLA ECHAVARRIA MD, Ot Z77.098 CONTACT W AND EXPSR TO [facility], CHIEF 12/20/2018 BELLA ECHAVARRIA MD, Ot Z94.0 KIDNEY TRANSPLANT STATUS 12/22/2018 BELLA ECHAVARRIA MD, Ot E11.622 TYPE 2 DIABETES MELLITUS WITH OTHER SKIN 12/22/2018 BELLA ECHAVARRIA MD, Ot I87.323 CHRONIC VENOUS HTN W INFLAMMATION OF RAINER 12/22/2018 BELLA ECHAVARRIA MD, Ot L97.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 ULCER OF LEFT CALF 12/22/2018 BELLA ECHAVARRIA MD, Ot Z77.098 CONTACT W AND EXPSR TO [facility], CHIEF 12/22/2018 BELLA ECHAVARRIA MD, Ot Z94.0 KIDNEY TRANSPLANT STATUS 12/23/2018 BELLA ECHAVARRIA MD, Ot E11.622 TYPE 2 DIABETES MELLITUS WITH OTHER SKIN 12/23/2018 BELLA ECHAVARRIA MD, Ot I87.321 CHRONIC VENOUS HYPERTENSION W INFLAMMATI 12/23/2018 BELLA ECHAVARRIA MD, Ot I87.332 CHRONIC VENOUS HTN W ULCER AND INFLAMMAT 12/23/2018 BELLA ECHAVARRIA MD, Ot L97.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 ULCER OF LEFT CALF 12/23/2018 BELLA ECHAVARRIA MD, Ot Z77.098 CONTACT W AND EXPSR TO [facility], CHIEF 12/23/2018 BELLA ECHAVARRIA MD, Ot Z94.0 KIDNEY TRANSPLANT STATUS 12/24/2018 BELLA ECHAVARRIA MD, Ot E11.622 TYPE 2 DIABETES MELLITUS WITH OTHER SKIN 12/24/2018 BELLA ECHAVARRIA MD, Ot I87.321 CHRONIC VENOUS HYPERTENSION W INFLAMMATI 12/24/2018 BELLA ECHAVARRIA MD, Ot I87.332 CHRONIC VENOUS HTN W ULCER AND INFLAMMAT 12/24/2018 BELLA ECHAVARRIA MD, Ot L97.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 ULCER OF LEFT CALF 12/24/2018 BELLA ECHAVARRIA MD Ot Z77.098 CONTACT W AND EXPSR TO [facility], CHIEF 12/24/2018 BELLA ECHAVARRIA MD Ot Z94.0 KIDNEY TRANSPLANT STATUS 12/30/2018 JACEK GRIDER APRN Ot E11.622 TYPE 2 DIABETES MELLITUS WITH OTHER SKIN 12/30/2018 JACEK GRIDER FOOD DEMONSTRATOR Ot I87.321 CHRONIC VENOUS HYPERTENSION W INFLAMMATI 12/30/2018 JACEK GRIDER FOOD DEMONSTRATOR Ot I87.332 CHRONIC VENOUS HTN W ULCER AND INFLAMMAT 12/30/2018 JACEK GRIDER FOOD DEMONSTRATOR Ot L97.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 ULCER OF LEFT CALF 12/30/2018 JACEK GRIDER APRN Ot Z77.098 CONTACT W AND EXPSR TO [facility], CHIEF 12/30/2018 JACEK GRIDER APRN Ot Z94.0 KIDNEY TRANSPLANT STATUS 01/06/2019 BELLA ECHAVARRIA MD Ot E11.622 TYPE 2 DIABETES MELLITUS WITH OTHER SKIN 01/06/2019 BELLA ECHAVARRIA MD Ot I87.321 CHRONIC VENOUS HYPERTENSION W INFLAMMATI 01/06/2019 BELLA ECHAVARRIA MD Ot I87.332 CHRONIC VENOUS HTN W ULCER AND INFLAMMAT 01/06/2019 BELLA ECHAVARRIA MD Ot L97.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 ULCER OF LEFT CALF 01/06/2019 BELLA ECHAVARRIA MD, Ot Z77.098 CONTACT W AND EXPSR TO [facility], CHIEF 01/06/2019 BELLA ECHAVARRIA MD Ot Z94.0 KIDNEY TRANSPLANT STATUS 01/06/2019 JACEK GRIDER APRN Ot E11.622 TYPE 2 DIABETES MELLITUS WITH OTHER SKIN 01/06/2019 JACEK GRIDER FOOD DEMONSTRATOR Ot I87.321 CHRONIC VENOUS HYPERTENSION W INFLAMMATI 01/06/2019 JACEK GRIDER FOOD DEMONSTRATOR Ot I87.332 CHRONIC VENOUS HTN W ULCER AND INFLAMMAT 01/06/2019 JACEK GRIDER FOOD DEMONSTRATOR Ot L97.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 ULCER OF LEFT CALF 01/06/2019 JACEK GRIDER FOOD DEMONSTRATOR Ot Z77.098 CONTACT W AND EXPSR TO [facility], CHIEF 01/06/2019 JACEK GRIDER FOOD DEMONSTRATOR Ot Z94.0 KIDNEY TRANSPLANT STATUS 01/07/2019 BELLA ECHAVARRIA MD Ot E11.622 TYPE 2 DIABETES MELLITUS WITH OTHER SKIN 01/07/2019 BELLA ECHAVARRIA MD, Ot I87.321 CHRONIC VENOUS HYPERTENSION W INFLAMMATI 01/07/2019 BELLA ECHAVARRIA MD, Ot I87.332 CHRONIC VENOUS HTN W ULCER AND INFLAMMAT 01/07/2019 BELLA ECHAVARRIA MD, Ot L97.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 ULCER OF LEFT CALF 01/07/2019 BELLA ECHAVARRIA MD, Ot Z77.098 CONTACT W AND EXPSR TO [facility], CHIEF 01/07/2019 BELLA ECHAVARRIA MD, Ot Z94.0 KIDNEY TRANSPLANT STATUS 01/11/2019 MAYE ZENG MD, Ot C44.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 01/11/2019 MAYE ZENG MD, Ot 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 AXILLA AN 01/11/2019 MAYE ZENG MD, Ot Z51.0 ENCOUNTER FOR ANTINEOPLASTIC RADIATION T 01/11/2019 BELLA ECHAVARRIA MD, Ot E11.622 TYPE 2 DIABETES MELLITUS WITH OTHER SKIN 01/11/2019 BELLA ECHAVARRIA MD, Ot I87.321 CHRONIC VENOUS HYPERTENSION W INFLAMMATI 01/11/2019 BELLA ECHAVARRIA MD, Ot I87.332 CHRONIC VENOUS HTN W ULCER AND INFLAMMAT 01/11/2019 BELLA ECHAVARRIA MD, Ot L97.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 ULCER OF LEFT CALF 01/11/2019 BELLA ECHAVARRIA MD, Ot Z77.098 CONTACT W AND EXPSR TO [facility], CHIEF 01/11/2019 BELLA ECHAVARRIA MD, Ot Z94.0 KIDNEY TRANSPLANT STATUS 01/12/2019 BELLA ECHAVARRIA MD, Ot E11.622 TYPE 2 DIABETES MELLITUS WITH OTHER SKIN 01/12/2019 BELLA ECHAVARRIA MD, Ot I87.321 CHRONIC VENOUS HYPERTENSION W INFLAMMATI 01/12/2019 BELLA ECHAVARRIA MD, Ot I87.332 CHRONIC VENOUS HTN W ULCER AND INFLAMMAT 01/12/2019 BELLA ECHAVARRIA MD, Ot L97.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 ULCER OF LEFT CALF 01/12/2019 BELLA ECHAVARRIA MD, Ot Z77.098 CONTACT W AND EXPSR TO OT HAZARD, CHIEF 01/12/2019 BELLA ECHAVARRIA MD, Ot Z94.0 KIDNEY TRANSPLANT STATUS 01/13/2019 BELLA ECHAVARRIA MD, Ot E11.622 TYPE 2 DIABETES MELLITUS WITH OTHER SKIN 01/13/2019 BELLA ECHAVARRIA MD, Ot I87.333 CHRONIC VENOUS HTN W ULCER AND INFLAM OF 01/13/2019 BELLA ECHAVARRIA MD, Ot L97.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 ULCER OF LEFT CALF 01/13/2019 BELLA ECHAVARRIA MD, Ot Z77.098 CONTACT W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
--- NOTE | 2019-01-29 04:53 | ED Hip Pain/Injury ---
General Chief Complaint: Trauma-Non Activation Stated Complaint: FALL Source: patient, EMS History of Present Illness Date Seen by Provider: Jan 29, 2019 Time Seen by Provider: 04:40 Initial Comments PT ARRIVES VIA [facility] FROM HOME STATES HE HAD GOTTEN UP TO GO TO THE BATHROOM AND FELL, LANDING ON RIGHT HIP DENIES HITTING HEAD OR HAVING LOSS OF CONSCIOUSNESS DENIES ANY OTHER INJURIES NO NECK OR BACK PAIN NO PARESTHESIAS OR MOTOR DEFICITS DENIES PRIOR INJURY TO RIGHT HIP Other PCP: FT. DARRYL RODRIGUEZ, IN THE PAST--HAS NOT ESTABLISHED WITH NEW PCP ALSO GOES TO [facility] AUDIO VISUAL COLLECTIONS COORDINATOR: AT [facility] Allergies and Home Medications Allergies Coded Allergies: Penicillins (Unverified Allergy, Unknown, 10/07/18) Home Medications Aspirin 81 Mg Tablet.dr, 81 MG PO DAILY, (Reported) Carvedilol 3.125 Mg Tablet, 3.125 MG PO BID, (Reported) Clopidogrel Bisulfate 75 Mg Tablet, 75 MG PO DAILY, (Reported) Docusate Sodium 100 Mg Capsule, 100 MG PO BID, (Reported) Famotidine 20 Mg Tablet, 20 MG PO BID, (Reported) Finasteride 5 Mg Tablet, 5 MG PO DAILY, (Reported) Insulin Aspart 100 Unit/1 Ml Susp, PER INSULIN PUMP, (Reported) Levothyroxine Sodium 175 Mcg Tablet, 175 MCG PO DAILY, (Reported) Mycophenolate Sodium 360 Mg Tablet.dr, 360 MG PO BID, (Reported) Simvastatin 40 Mg Tablet, 40 MG PO HS, (Reported) Tacrolimus 0.5 Mg Capsule, 1 MG PO BID, (Reported) TAKES 2 (0.5MG) CAPSULES Tamsulosin HCl 0.4 Mg Cap, 0.4 MG PO HS, (Reported) Patient Home Medication List Home Medication List Reviewed: Yes Review of Systems Constitutional: no symptoms reported Respiratory: no symptoms reported Cardiovascular: no symptoms reported Musculoskeletal: see HPI Skin: other (CHRONIC WOUNDS TO LEFT LOWER LEG, LEFT EAR, ARMS ) Psychiatric/Neurological: No Symptoms Reported Past Vhfteij-Lucavp-Ytsoct Hx Patient Social History Alcohol Use: Denies Use Recreational Drug Use: No Smoking Status: Former Smoker (Q1UIT SMOKINGI N 2009) 2nd Hand Smoke Exposure: No Recent Foreign Travel: No Contact w/Someone Who Travel: No Recent Hopitalizations: No Immunizations Up To Date Date of Pneumonia Vaccine: Aug 09, 2017 Date of Influenza Vaccine: May 03, 2018 Seasonal Allergies Seasonal Allergies: No Past Medical History Surgeries: Yes (CARDIAC CATHS--STENT--LAST ONE IN 2013) Cardiac, Coronary Stent, Kidney Transplant Respiratory: No Cardiac: Yes (CARDIAC CATHS-STENT--LAST CATH 2013) Coronary Artery Disease, High Cholesterol, Hypertension, Irregular Heartbeat, Peripheral Vascular Neurological: No Genitourinary: Yes (S/P RENAL TRANSPLANT 2013) Renal Failure Gastrointestinal: No Musculoskeletal: No Endocrine: Yes Diabetes, Insulin dep HEENT: No Cancer: No Psychosocial: No Integumentary: Yes (CHRONIC LEFT LEG WOUND, CHRONIC WOUND TO LEFT EAR, CHRONIC WOUNDS TO ARMS. ) Blood Disorders: No Family Medical History APPEN G8 SISTER Appendicitis Benign neoplasm of lymph nodes 19 MOTHER Bowel cancer 19 FATHER G8 BROTHER FH: myocardial infarction 19 MOTHER G8 BROTHER Cancer, CAD Over 55 Years Old EXPOSURE TO AGENT ORANGE Physical Exam Vital Signs Vital Signs - First Documented 01/29/19 04:43 Temp 95.5 Pulse 88 Resp 17 B/P (MAP) 140/88 (105) Pulse Ox 98 O2 Delivery Nasal Cannula O2 Flow Rate 3.00 Capillary Refill : Height, Weight, BMI Height: 5'9.00" Weight: 186lbs. 0.0oz. 84.028907no; 27.6 BMI Method:Stated General Appearance: No Apparent Distress, WD/WN HEENT: Other (MOUTH, LIPS, TEETH COATED WITH PINK THICK SUBSTANCE. LEFT EAR WITH CHRONIC WOUND WITH SEROSANGUINOUS DRAINAGE. ) Neck: Non Tender Cardiovascular: Regular Rate, Rhythm Respiratory: Normal Breath Sounds, No Accessory Muscle Use Gastrointestinal: Non Tender, Soft Back: No CVA Tenderness, No Vertebral Tenderness Extremity: No Calf Tenderness, No Pedal Edema, Other (TENDERNESS TO RIGHT HIP, NO SHORTENING OR ROTATION. PEDAL PULSES ARE FAINT. LEFT LOWER LEG WITH HEAVY DRESSINGS IN PLACE--CLEAN/DRY/INTACT) Neurologic/Psychiatric: Alert, Oriented x3, No Motor/Sensory Deficits, Normal Mood/Affect, school year nanny II-XII Norm as Tested Skin: Normal Color, Warm/Dry, Other ( ABOVE) Progress/Results/Core Measures Results/Orders Lab Results Laboratory Tests Test 01/29/19 04:49 01/29/19 04:52 Range/Units White Blood Count 5.2 4.3-11.0 10^3/uL Red Blood Count 4.89 4.35-5.85 10^6/uL Hemoglobin 11.5 L 13.3-17.7 G/DL Hematocrit 38 L 40-54 % Mean Corpuscular Volume 77 L 80-99 FL Mean Corpuscular Hemoglobin 24 L 25-34 PG Mean Corpuscular Hemoglobin Concent 31 L 32-36 G/DL Red Cell Distribution Width 16.5 H 10.0-14.5 % Platelet Count 222 130-400 10^3/uL Mean Platelet Volume 10.1 7.4-10.4 FL Neutrophils (%) (Auto) 66 42-75 % Lymphocytes (%) (Auto) 16 12-44 % Monocytes (%) (Auto) 15 H 0-12 % Eosinophils (%) (Auto) 3 0-10 % Basophils (%) (Auto) 0 0-10 % Neutrophils # (Auto) 3.5 1.8-7.8 X 10^3 Lymphocytes # (Auto) 0.8 L 1.0-4.0 X 10^3 Monocytes # (Auto) 0.8 0.0-1.0 X 10^3 Eosinophils # (Auto) 0.2 0.0-0.3 10^3/uL Basophils # (Auto) 0.0 0.0-0.1 10^3/uL Prothrombin Time 15.5 H 12.2-14.7 SEC INR Comment 1.2 0.8-1.4 Activated Partial Thromboplast Time 38 H 24-35 SEC Sodium Level 133 L 135-145 MMOL/L Potassium Level 5.8 H 3.6-5.0 MMOL/L Chloride Level 104 98-107 MMOL/L Carbon Dioxide Level 20 L 21-32 MMOL/L Anion Gap 9 5-14 MMOL/L Blood Urea Nitrogen 23 H 7-18 MG/DL Creatinine 1.70 H 0.60-1.30 MG/DL Estimat Glomerular Filtration Rate 40 BUN/Creatinine Ratio 14 Glucose Level 115 H 70-105 MG/DL Calcium Level 9.3 8.5-10.1 MG/DL Corrected Calcium 10.1 8.5-10.1 MG/DL Magnesium Level 2.0 1.8-2.4 MG/DL Total Bilirubin 0.3 0.1-1.0 MG/DL Aspartate Amino Transf (AST/SGOT) 24 5-34 U/L Alanine Aminotransferase (ALT/SGPT) 13 0-55 U/L Alkaline Phosphatase 80 40-136 U/L Total Protein 7.4 6.4-8.2 GM/DL Albumin 3.0 L 3.2-4.5 GM/DL Glucometer 117 H 70-110 MG/DL My Orders Orders - CHARLOTTE LOW DO Chest 1 View, Ap/Pa Only (01/29/19 04:41) Pelvis With Right Hip 2-3views (01/29/19 04:41) Ed Iv/Invasive Line Start (01/29/19 04:41) Accucheck Stat ONCE (01/29/19 04:43) Cbc With Automated Diff (01/29/19 04:43) Comprehensive Metabolic Panel (01/29/19 04:43) Magnesium (01/29/19 04:43) Protime With Inr (01/29/19 04:43) Partial Thromboplastin Time (01/29/19 04:43) Ct Extremity Lower Right Wo (01/29/19 05:38) Ed Iv/Invasive Line Start (01/29/19 06:27) Ns Iv 1000 Ml (Sodium Chloride 0.9%) (01/29/19 06:27) Fentanyl Injection (Sublimaze Injection (01/29/19 06:27) Fentanyl Injection (Sublimaze Injection (01/29/19 07:07) Morphine Injection (Morphine Injection (01/29/19 07:36) Medications Given in ED Current Medications Medications Dose Ordered Sig/Clarita Route Start Time Stop Time Status Last Admin Dose Admin Sodium Chloride 1,000 ml @ 0 mls/hr Q0M ONCE IV 01/29/19 06:27 01/29/19 06:30 DC 01/29/19 06:35 0 MLS/HR Vital Signs/I&O 01/29/19 01/29/19 01/29/19 01/29/19 04:43 04:43 07:10 09:43 Temp 95.5 95.5 Pulse 88 88 103 Resp 17 17 20 B/P (MAP) 140/88 (105) 140/88 (105) 104/79 (87) Pulse Ox 98 98 98 97 O2 Delivery Nasal Cannula Nasal Cannula Nasal Cannula Nasal Cannula O2 Flow Rate 3.00 2.00 2.00 Progress Progress Note : Progress Note UNEVENTFUL ER STAY PAIN IMPROVED WITH MEDICATIONS Diagnostic Imaging Comments CXR--VASCULAR CONGESTION, PENDING RADIOLOGIST REVIEW XRAYS PELVIS AND RIGHT HIP--DEGENERATIVE CHANGES OF HIP, QUESTIONABLE FEMORAL NECK FRACTURE--WILL OBTAIN CT FOR FURTHER EVALUATION--PENDING RADIOLOGIST REVIEW CT RIGHT HIP--ACUTE NON-DISPLACED FRACTURE OF RIGHT BASICERVICAL AREA--PER STAT RAD VIA PHONE AT 0639 AND VIA FAX AT 0650 Reviewed: Reviewed by Me Departure Communication (Admissions) 0644--SPOKE WITH DR. DIAL, ORTHOPEDIC SURGEON, HE ADVISES TO ADMIT PT AND HAVE HOSPITALIST CONSULT FOR MEDICAL CLEARANCE 0645--SPOKE WITH DR. ONTIVEROS, HOSPITALIST, WILL SEE PT IN CONSULT 0649--DR. DIAL CALLED BACK, HE NOW ADVISES TO TRANSFER PT TO FACILITY WITH HIGHER LEVEL OF CARE, THAT INCLUDES NEPHROLOGY SERVICES, DUE TO PT'S HISTORY OF RENAL TRANSPLANT. 0655--CALLED [facility] IN , PT AND FAMILY PREFERENCE, HIS RENAL TRANSPLANT AND AUDIO VISUAL COLLECTIONS COORDINATOR PHYSICIANS ARE THERE. 0700--SPOKE WITH TRANSFER CENTER, PAGING TRAUMA SURGEON 0703--SPOKE WITH DR. SHIRIN NEFF, TRAUMA SURGEON, ACCEPTS PT FOR TRANSFER--TO GO TO ER. 0705--CALLED DR. ONTIVEROS AND INFORMED HIM OF CHANGE IN PLANS. 0705--EMS HAS BEEN CONTACTED, ETA 0800. Impression Primary Impression: Status post fall Additional Impressions: Closed right hip fracture Status post kidney transplant Renal insufficiency MILD HYPERKALEMIA IDDM (insulin dependent diabetes mellitus) ASVD (arteriosclerotic vascular disease) Disposition: 02 XFER SHT-TRM HOSP Condition: Stable Departure-Patient Inst. Referrals: CHRISTOPHER SCHULTZ APRN (PCP) Primary Care Physician CHARLOTTE LOW DO Jan 29, 2019 04:53
[2019-01-29 05:00] LABS: BASOPHILS % (AUTO) 0 % (0-10); EOSINOPHILS # (AUTO) 0.2 10^3/uL (0.0-0.3); EOSINOPHILS % (AUTO) 3 % (0-10); HEMATOCRIT 38 % (40-54); HEMOGLOBIN 11.5 G/DL (13.3-17.7); LYMPHOCYTES # (AUTO) 0.8 X 10^3 (1.0-4.0); LYMPHOCYTES % (AUTO) 16 % (12-44); MEAN CORPUSCULAR HEMOGLOBIN 24 PG (25-34); MEAN CORPUSCULAR HGB CONC 31 G/DL (32-36); MEAN CORPUSCULAR VOLUME 77 FL (80-99); MEAN PLATELET VOLUME 10.1 FL (7.4-10.4); MONOCYTES # (AUTO) 0.8 X 10^3 (0.0-1.0); MONOCYTES % (AUTO) 15 % (0-12); NEUTROPHILS # (AUTO) 3.5 X 10^3 (1.8-7.8); NEUTROPHILS % (AUTO) 66 % (42-75); PLATELET COUNT 222 10^3/uL (130-400); RED CELL DISTRIBUTION WIDTH 16.5 % (10.0-14.5); WHITE BLOOD COUNT 5.2 10^3/uL (4.3-11.0)
[2019-01-29 05:12] LABS: INR 1.2 (0.8-1.4); PROTHROMBIN TIME PATIENT 15.5 SEC (12.2-14.7)
[2019-01-29 05:21] LABS: BILIRUBIN,TOTAL 0.3 MG/DL (0.1-1.0); CALCIUM 9.3 MG/DL (8.5-10.1); CREATININE SERUM 1.7 MG/DL (0.60-1.30); POTASSIUM 5.8 MMOL/L (3.6-5.0); TOTAL PROTEIN 7.4 GM/DL (6.4-8.2)
--- NOTE | 2019-01-29 06:17 | Diagnostic Imaging Report ---
EXAMINATION: Pelvis, single view. Right hip, 2 additional views. COMPARISON: None. HISTORY: 73-year-old male, fall. Right hip pain. FINDINGS: The pubic symphysis and sacroiliac joints are not abnormally widened. The left hip is not obviously dislocated. The right hip is not dislocated. There is severe joint space loss of both hips with osteophyte formation. There are vascular calcifications. There is question of offset at the level of the right femoral neck. IMPRESSION: 1. Question nondisplaced right femoral neck fracture. Recommend CT right hip without contrast for further assessment. 2. Severe osteoarthritis of both hips. Dictated by: Dictated on workstation # [id number]
[2019-01-29] MEDS ORDERED: fentaNYL INJECTION 100 MCG/2 ML AMP IVP STA ×2 (06:27→07:07)
[2019-01-29] MEDS ORDERED: NS IV 1000 ML 1,000 ML IV ONE (06:27)
--- NOTE | 2019-01-29 06:30 | NUR ---
IV NS bolus initiated by [facility] EMS fishing captain, complete (1000ml).
--- NOTE | 2019-01-29 07:01 | NUR ---
Report given to ZACHARIAH Lao to assume care of pt @ this time.
--- NOTE | 2019-01-29 07:05 | NUR ---
[facility] EMS CAPTAIN CALLED AT THIS TIME REGARDING PT TRANSFER. INFORMED THIS RN THAT CREW WOULD BE ABLE TO TAKE TRANSFER AT 0800. [facility] DISBATCH CONTACTED [facility] PT TRANSFER.
[2019-01-29] MEDS ORDERED: morphine INJ 10 MG/ML 1ML (SYR OR VIAL) IVP STA (07:36)
--- NOTE | 2019-01-29 07:49 | Diagnostic Imaging Report ---
EXAMINATION: Chest radiograph, portable AP view. DATE: January 29, 2019 at 0458 hours. INDICATION: 73-year-old male, fall. Chest pain. COMPARISON: October 06, 2018. FINDINGS: Heart size and mediastinal contours are unremarkable. There is no identified pneumothorax. There is no large pleural effusion. There are bilateral interstitial opacities. There is no identified significantly displaced rib fracture. There are mild linear opacities in the peripheral aspect of the right midlung likely reflecting mild subsegmental atelectasis. There are bilateral carotid vascular calcifications. IMPRESSION: 1. Bilateral interstitial opacities which may reflect pulmonary interstitial edema. Atypical infection is the primary differential diagnostic consideration. Dictated by: Dictated on workstation # [id number]
--- NOTE | 2019-01-29 07:58 | Diagnostic Imaging Report ---
Exam: CT right hip without contrast. Date: January 29, 2019. Indication: 73-year-old male, fall. Right hip pain. Comparison: Radiographs January 29, 2019. Findings: There is an essentially nondisplaced right femoral neck fracture. This is perhaps best illustrated on coronal image 57 and adjacent sequential images. The right hip is not dislocated. There is severe joint space loss of the right hip with osteophyte formation and small areas of subchondral cystic change in the posterior acetabulum. There is no identified sizable fluid collection or free pelvic fluid. Impression: 1. Essentially nondisplaced fracture involving the right femoral neck. 2. Severe osteoarthritis of the right hip. Dictated by: Dictated on workstation # [id number]
--- NOTE | 2019-01-29 08:00 | NUR ---
PT TOOK HOME TACROMLIMUS 1 MG AT THIS TIME.
--- NOTE | 2019-01-29 08:38 | NUR ---
DISBATCH CONTACTED REGARDING WHETHER OR NOT CREW HAD BEEN DISBATCHED AND NOTIFIED OF TRANSFER. THEY CONFIRM THAT THE CREW HAD BEEN DISBATCHED.
[2019-01-29] MEDS ORDERED: LINE600T33 PO (09:04)
--- NOTE | 2019-01-29 09:05 | NUR ---
0900- SHIFT CAPTAIN CALLED AT THIS TIME REGARDING TRANSFER CREW TIMELINE. TOLD THIS ED RN THAT HE WILL FIND OUT.
[2019-01-29 09:43] VITALS: BP 104/79
== END 2019-01-29 09:43 | disposition short-term general hospital (02) ==
LOC: EDUNIT# 04:40 → ER 04:41
DX: S72.091A Other fracture of head and neck of right femur, initial encounter for closed fracture (principal); I25.10 Atherosclerotic heart disease of native coronary artery without angina pectoris; E87.5 Hyperkalemia; N28.9 Disorder of kidney and ureter, unspecified; I10 Essential (primary) hypertension; E78.00 Pure hypercholesterolemia, unspecified; E11.51 Type 2 diabetes mellitus with diabetic peripheral angiopathy without gangrene; Z94.0 Kidney transplant status; Z88.0 Allergy status to penicillin; Z88.2 Allergy status to sulfonamides; Z79.02 Long term (current) use of antithrombotics/antiplatelets; Z79.4 Long term (current) use of insulin; Z87.891 Personal history of nicotine dependence; Z95.5 Presence of coronary angioplasty implant and graft; Z80.0 Family history of malignant neoplasm of digestive organs; W01.0XXA Fall on same level from slipping, tripping and stumbling without subsequent striking against object, initial encounter; Y92.002 Bathroom of unspecified non-institutional (private) residence as the place of occurrence of the external cause
CPT/HCPCS: 36415; 71045; 73700; 80053; 82962; 83735; 85025; 85610; 85730

== ENCOUNTER → 2019-03-08 | Outpatient (CLI) | payer MEDICARE ==
[~2019-03-08] MED LIST changes: +LINE600T15 PO
== END ==
LOC: WOUNDCARE 13:30
PROVIDERS: ATTEND Surgery
DX: L97.222 Non-pressure chronic ulcer of left calf with fat layer exposed (principal); I87.332 Chronic venous hypertension (idiopathic) with ulcer and inflammation of left lower extremity; E11.622 Type 2 diabetes mellitus with other skin ulcer; E11.52 Type 2 diabetes mellitus with diabetic peripheral angiopathy with gangrene; I96 Gangrene, not elsewhere classified; Z77.098 Contact with and (suspected) exposure to other hazardous, chiefly nonmedicinal, chemicals; Z94.0 Kidney transplant status
CPT/HCPCS: 11042

== ENCOUNTER → 2019-03-09 | Outpatient (CLI) | payer MEDICARE | LOC: WOUNDCARE 14:09 | PROVIDERS: ATTEND Surgery | DX: E11.622 Type 2 diabetes mellitus with other skin ulcer (principal); E11.40 Type 2 diabetes mellitus with diabetic neuropathy, unspecified; L97.222 Non-pressure chronic ulcer of left calf with fat layer exposed; I25.10 Atherosclerotic heart disease of native coronary artery without angina pectoris; H26.9 Unspecified cataract | CPT/HCPCS: 29581 ==

== ENCOUNTER → 2019-03-15 | Outpatient (CLI) | payer MEDICARE | LOC: WOUNDCARE 13:28 | PROVIDERS: ATTEND Surgery | DX: E11.622 Type 2 diabetes mellitus with other skin ulcer (principal); E11.52 Type 2 diabetes mellitus with diabetic peripheral angiopathy with gangrene; I87.332 Chronic venous hypertension (idiopathic) with ulcer and inflammation of left lower extremity; L97.222 Non-pressure chronic ulcer of left calf with fat layer exposed; C44.209 Unspecified malignant neoplasm of skin of left ear and external auricular canal; I96 Gangrene, not elsewhere classified; Z94.0 Kidney transplant status | CPT/HCPCS: 29581 ==

== ENCOUNTER → 2019-03-21 | Outpatient (CLI) | payer MEDICARE | LOC: WOUNDCARE 15:04 | PROVIDERS: ATTEND Surgery | DX: L97.222 Non-pressure chronic ulcer of left calf with fat layer exposed (principal); I87.332 Chronic venous hypertension (idiopathic) with ulcer and inflammation of left lower extremity; E11.622 Type 2 diabetes mellitus with other skin ulcer; Z77.098 Contact with and (suspected) exposure to other hazardous, chiefly nonmedicinal, chemicals; C44.299 Other specified malignant neoplasm of skin of left ear and external auricular canal; Z94.0 Kidney transplant status; E11.52 Type 2 diabetes mellitus with diabetic peripheral angiopathy with gangrene; I96 Gangrene, not elsewhere classified | CPT/HCPCS: 11042 ==

== ENCOUNTER → 2019-03-29 | Outpatient (CLI) | payer MEDICARE | LOC: WOUNDCARE 13:16 | PROVIDERS: ATTEND Surgery | DX: L97.222 Non-pressure chronic ulcer of left calf with fat layer exposed (principal); I87.332 Chronic venous hypertension (idiopathic) with ulcer and inflammation of left lower extremity; E11.622 Type 2 diabetes mellitus with other skin ulcer; E11.52 Type 2 diabetes mellitus with diabetic peripheral angiopathy with gangrene; I96 Gangrene, not elsewhere classified; C44.209 Unspecified malignant neoplasm of skin of left ear and external auricular canal; Z77.098 Contact with and (suspected) exposure to other hazardous, chiefly nonmedicinal, chemicals; Z94.0 Kidney transplant status | CPT/HCPCS: 11042 ==

== ENCOUNTER → 2019-04-01 | Outpatient (CLI) | payer MEDICARE ==
--- NOTE | 2019-04-01 13:50 | Diagnostic Imaging Report ---
Right hip, a total 5. Indication: Fell, hip pain. The previous right hip exam performed on 01/29/2019 astutely noted a nondisplaced fracture involving the right femoral neck. In the interval since the prior exam, the patient has undergone a surgical procedure. There is now an orthopedic fixation screw and intramedullary [place] traversing the fracture of the right femoral neck. The orthopedic hardware appears in good position. There is no fracture or acute bony appreciated. The soft tissues are unremarkable. Impression: There are postoperative changes consistent with an interval surgical procedure. The orthopedic hardware seems to be in good position. There is no acute bony abnormality evident. Dictated by: Dictated on workstation # [id number]
== END ==
LOC: RAD FS 11:54
PROVIDERS: ATTEND Nurse Practitioner Family
DX: M25.551 Pain in right hip (principal); W19.XXXA Unspecified fall, initial encounter; Z98.890 Other specified postprocedural states
CPT/HCPCS: 73502

== ENCOUNTER → 2019-04-05 | Outpatient (CLI) | payer MEDICARE | LOC: WOUNDCARE 13:16 | PROVIDERS: ATTEND Surgery | DX: E11.622 Type 2 diabetes mellitus with other skin ulcer (principal); E11.52 Type 2 diabetes mellitus with diabetic peripheral angiopathy with gangrene; I87.332 Chronic venous hypertension (idiopathic) with ulcer and inflammation of left lower extremity; L97.222 Non-pressure chronic ulcer of left calf with fat layer exposed; C44.209 Unspecified malignant neoplasm of skin of left ear and external auricular canal; I96 Gangrene, not elsewhere classified; Z94.0 Kidney transplant status; Z77.098 Contact with and (suspected) exposure to other hazardous, chiefly nonmedicinal, chemicals | CPT/HCPCS: 11042 ==

== ENCOUNTER → 2019-04-11 | Outpatient (CLI) | payer MEDICARE | LOC: WOUNDCARE 13:35 | PROVIDERS: ATTEND Surgery | DX: E11.622 Type 2 diabetes mellitus with other skin ulcer (principal); E11.52 Type 2 diabetes mellitus with diabetic peripheral angiopathy with gangrene; I87.332 Chronic venous hypertension (idiopathic) with ulcer and inflammation of left lower extremity; L97.222 Non-pressure chronic ulcer of left calf with fat layer exposed; I96 Gangrene, not elsewhere classified; C44.209 Unspecified malignant neoplasm of skin of left ear and external auricular canal; Z77.098 Contact with and (suspected) exposure to other hazardous, chiefly nonmedicinal, chemicals; Z94.0 Kidney transplant status | CPT/HCPCS: 99212 ==

== ENCOUNTER 2020-01-17 10:52 | Outpatient (RCR) | payer MEDICARE, BC ==
[~2020-01-17 10:52] MED LIST changes: -LINE600T15 PO; +LNZ600T PO; +SIMV40TA25 PO; -SIMV40TA4 PO; -TAMS0.4C98 PO; +TMSL.4C PO
== END 2020-01-20 11:00 | disposition home or self-care (01) ==
PROVIDERS: ATTEND Internal Medicine Hematology & Oncology
DX: C44.629 Squamous cell carcinoma of skin of left upper limb, including shoulder (principal)

== ENCOUNTER 2020-02-09 12:59 | Emergency (ER) | payer MEDICARE, BC ==
[~2020-02-09] VITALS: Ht 175.2 cm; Wt 70.9 kg
[2020-02-09] MEDS ORDERED: NS IV 1000 ML 1,000 ML ONE (13:16)
--- NOTE | 2020-02-09 13:17 | ED General ---
General Chief Complaint: Altered Mental Status Stated Complaint: AMS History of Present Illness Date Seen by Provider: Feb 09, 2020 Time Seen by Provider: 13:15 Initial Comments Patient presenting to emergency department for evaluation of failure to thrive. Patient has been eating and drinking less and has been less active. All the history is coming from the patient's daughter, Karlie. 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 His oncologist is Dr. Alvarado. Patient essentially says that he feels fine and I asked him why he is not eating or drinking he says he just doesn't feel like it. He says that he has no pain or complaints. He was alert and oriented 2 for me and the nurse as he was confused on the date but he did know it was 2019. Patient has left humeral erythema and swelling which they said it is lymphedema and he finished Bactrim for that on January 31. He recently stopped his Plavix as his lesions were bleeding. He had a urinalysis done yesterday which showed no signs of infection but he was specific gravity of 1.03. His decreased appetite started on February 02 and he had labs drawn at that time and his creatinine was 1.7 with a WN of 33 and hemoglobin of 10. He is in no obvious distress with normal vital signs. Allergies and Home Medications Allergies Coded Allergies: Penicillins (Unverified Allergy, Unknown, 10/07/18) Home Medications Aspirin 81 Mg Tablet.dr, 81 MG PO DAILY, (Reported) Carvedilol 3.125 Mg Tablet, 3.125 MG PO BID, (Reported) Clopidogrel Bisulfate 75 Mg Tablet, 75 MG PO DAILY, (Reported) Docusate Sodium 100 Mg Capsule, 100 MG PO BID, (Reported) Famotidine 20 Mg Tablet, 20 MG PO BID, (Reported) Finasteride 5 Mg Tablet, 5 MG PO DAILY, (Reported) Insulin Aspart 100 Unit/1 Ml Susp, PER INSULIN PUMP, (Reported) Levothyroxine Sodium 175 Mcg Tablet, 175 MCG PO DAILY, (Reported) Mycophenolate Sodium 360 Mg Tablet.dr, 360 MG PO BID, (Reported) Simvastatin 40 Mg Tablet, 40 MG PO HS, (Reported) Tacrolimus 0.5 Mg Capsule, 1 MG PO BID, (Reported) TAKES 2 (0.5MG) CAPSULES Tamsulosin HCl 0.4 Mg Cap, 0.4 MG PO HS, (Reported) Patient Home Medication List Home Medication List Reviewed: Yes Review of Systems Review of Systems Constitutional: no symptoms reported EENTM: no symptoms reported Respiratory: no symptoms reported Cardiovascular: no symptoms reported Gastrointestinal: no symptoms reported Genitourinary: no symptoms reported Musculoskeletal: no symptoms reported Skin: no symptoms reported Psychiatric/Neurological: No Symptoms Reported All Other Systems Reviewed Negative Unless Noted: Yes Past Zzmoocp-Nunuav-Xnfrtd Hx Patient Social History 2nd Hand Smoke Exposure: No Recent Hopitalizations: No Immunizations Up To Date Date of Pneumonia Vaccine: Aug 09, 2017 Date of Influenza Vaccine: May 03, 2018 Seasonal Allergies Seasonal Allergies: No Past Medical History Surgeries: Yes (CARDIAC CATHS--STENT--LAST ONE IN 2013) Cardiac, Coronary Stent, Kidney Transplant Respiratory: No Cardiac: Yes (CARDIAC CATHS-STENT--LAST CATH 2013) Coronary Artery Disease, High Cholesterol, Hypertension, Irregular Heartbeat, Peripheral Vascular Neurological: No Genitourinary: Yes (S/P RENAL TRANSPLANT 2013) Renal Failure Gastrointestinal: No Musculoskeletal: No Endocrine: Yes Diabetes, Insulin dep HEENT: No Cancer: No Psychosocial: No Integumentary: Yes (CHRONIC LEFT LEG WOUND, CHRONIC WOUND TO LEFT EAR, CHRONIC WOUNDS TO ARMS. ) Blood Disorders: No Family Medical History APPEN G8 SISTER Appendicitis Benign neoplasm of lymph nodes 19 MOTHER Bowel cancer 19 FATHER G8 BROTHER FH: myocardial infarction 19 MOTHER G8 BROTHER Cancer, CAD Over 55 Years Old EXPOSURE TO AGENT ORANGE Physical Exam Vital Signs Vital Signs - First Documented 02/09/20 13:00 Temp 36.6 Pulse 74 Resp 18 B/P (MAP) 130/84 (99) Pulse Ox 97 O2 Delivery Room Air Capillary Refill : Height, Weight, BMI Height: 5'9.00" Weight: 174lbs. 0.0oz. 78.048678oh; 27.6 BMI Method:Stated General Appearance: No Apparent Distress, Chronically ill HEENT: PERRL/EOMI Neck: Supple Respiratory: No Respiratory Distress Cardiovascular: Regular Rate, Rhythm Gastrointestinal: Non Tender, Soft Back: No Vertebral Tenderness Extremity: Normal Capillary Refill Neurologic/Psychiatric: Alert, No Motor/Sensory Deficits Skin: Warm/Dry, Other (erythema and warmth to the distal humeral region with associated edema. No significant tenderness to palpation.) Progress/Results/Core Measures Suspected Sepsis SIRS Temperature: Pulse: Respiratory Rate: Laboratory Tests 02/09/20 13:05: White Blood Count 8.2 Blood Pressure / Mean: Laboratory Tests 02/09/20 13:05: Creatinine 1.65H, INR Comment 1.1, Platelet Count 292, Total Bilirubin 0.4 Results/Orders Lab Results Laboratory Tests Test 02/09/20 13:05 Range/Units White Blood Count 8.2 4.3-11.0 10^3/uL Red Blood Count 4.71 4.35-5.85 10^6/uL Hemoglobin 11.6 L 13.3-17.7 G/DL Hematocrit 37 L 40-54 % Mean Corpuscular Volume 79 L 80-99 FL Mean Corpuscular Hemoglobin 25 25-34 PG Mean Corpuscular Hemoglobin Concent 31 L 32-36 G/DL Red Cell Distribution Width 14.5 10.0-14.5 % Platelet Count 292 130-400 10^3/uL Mean Platelet Volume 9.6 7.4-10.4 FL Neutrophils (%) (Auto) 73 42-75 % Lymphocytes (%) (Auto) 11 L 12-44 % Monocytes (%) (Auto) 14 H 0-12 % Eosinophils (%) (Auto) 1 0-10 % Basophils (%) (Auto) 0 0-10 % Neutrophils # (Auto) 6.0 1.8-7.8 X 10^3 Lymphocytes # (Auto) 0.9 L 1.0-4.0 X 10^3 Monocytes # (Auto) 1.2 H 0.0-1.0 X 10^3 Eosinophils # (Auto) 0.1 0.0-0.3 10^3/uL Basophils # (Auto) 0.0 0.0-0.1 10^3/uL Prothrombin Time 14.2 12.2-14.7 SEC INR Comment 1.1 0.8-1.4 Activated Partial Thromboplast Time 28 24-35 SEC Sodium Level 131 L 135-145 MMOL/L Potassium Level 4.7 3.6-5.0 MMOL/L Chloride Level 98 98-107 MMOL/L Carbon Dioxide Level 25 21-32 MMOL/L Anion Gap 8 5-14 MMOL/L Blood Urea Nitrogen 26 H 7-18 MG/DL Creatinine 1.65 H 0.60-1.30 MG/DL Estimat Glomerular Filtration Rate 41 BUN/Creatinine Ratio 16 Glucose Level 231 H 70-105 MG/DL Calcium Level 11.8 H 8.5-10.1 MG/DL Corrected Calcium 12.7 H 8.5-10.1 MG/DL Magnesium Level 1.6 1.6-2.4 MG/DL Total Bilirubin 0.4 0.1-1.0 MG/DL Aspartate Amino Transf (AST/SGOT) 14 5-34 U/L Alanine Aminotransferase (ALT/SGPT) 7 0-55 U/L Alkaline Phosphatase 99 40-136 U/L Troponin I < 0.30 <0.30 NG/ML Pro-B-Type Natriuretic Peptide 4040.0 H <75.0 PG/ML Total Protein 7.7 6.4-8.2 GM/DL Albumin 2.9 L 3.2-4.5 GM/DL Lipase 6 L 8-78 U/L My Orders Orders - JEREMY WOLF DO Iv/Invasive Line Insertion .IV start (02/09/20 13:15) Ct Head Wo (02/09/20 13:15) Cbc With Automated Diff (02/09/20 13:15) Comprehensive Metabolic Panel (02/09/20 13:15) Ekg Tracing (02/09/20 13:15) Chest 1 View Ap/Pa Only (02/09/20 13:15) Ua Culture If Indicated (02/09/20 13:15) Troponin I Fs (02/09/20 13:15) Lipase (02/09/20 13:15) Magnesium (02/09/20 13:15) Partial Thromboplastin Time (02/09/20 13:15) Probnp Fs (02/09/20 13:15) Protime With Inr (02/09/20 13:15) Ns Iv 1000 Ml (Sodium Chloride 0.9%) (02/09/20 13:15) Ns Iv 1000 Ml (Sodium Chloride 0.9%) (02/09/20 13:16) Vital Signs/I&O 02/09/20 13:00 Temp 36.6 Pulse 74 Resp 18 B/P (MAP) 130/84 (99) Pulse Ox 97 O2 Delivery Room Air Capillary Refill : Progress Note : Progress Note Patient with symptoms of failure to thrive with poor by mouth intake. I will check labs imaging treat with IV fluids and reassess. His workup didn't show any stone changes other than increase in his calcium to 12.7 which is an increase from 6 days ago from 10.6. I spoke to his oncologist extensively about patient's presentation and patient is refusing chemotherapy at this time starting 1 month ago and he is also refusing hospice. Essentially kiersten lewis is refusing the treatment algorithm is that he has available to him at this time. He did say the patient would benefit from getting further IV fluids and is phosphonate's and recommended transfer. I spoke to the daughter Karlie about these recommendations and she was very apprehensive about him staying in the hospital or being transported and refused admission at this time and said that she would like to have something set up as an outpatient. I then spoke to the oncologist again and he said that if he followed and his clinic at [place] tomorrow morning he could try and set up the bisphosphonates and IV fluids as an outpatient. I then spoke to the family again and they were disappointed that they will have to continue transporting patient by told him this is the best treatment I have available for him here at this free standing emergency department in [place]. I told them that the only treatment option I have available to me is to have him transferred into the appropriate treatment but they're refusing it at this time. They verbalized understanding and said that they would sort out further treatment planning on their own as an outpatient. They did verbalize understanding that this is not the treatment I recommended and accepted adverse outcomes from not getting the treatment I recommended including and disability. Departure Impression Primary Impression: Acute encephalopathy Additional Impressions: Failure to thrive in adult Hypercalcemia Moy cell carcinoma Poor fluid intake Disposition: 01 HOME, SELF-CARE Condition: Stable Departure-Patient Inst. Referrals: HEAVEN ALVARADO MD (PCP/Family) Primary Care Physician JEREMY WOLF DO Feb 09, 2020 13:17
[2020-02-09] MEDS: NS IV 1000 ML 1,000 ML IV SCH (13:20)
[2020-02-09 13:26] LABS: HEMATOCRIT 37 % (40-54); HEMOGLOBIN 11.6 G/DL (13.3-17.7); MEAN CORPUSCULAR HEMOGLOBIN 25 PG (25-34); MEAN CORPUSCULAR HGB CONC 31 G/DL (32-36); MEAN CORPUSCULAR VOLUME 79 FL (80-99); MEAN PLATELET VOLUME 9.6 FL (7.4-10.4); PLATELET COUNT 292 10^3/uL (130-400); RED CELL DISTRIBUTION WIDTH 14.5 % (10.0-14.5); WHITE BLOOD COUNT 8.2 10^3/uL (4.3-11.0)
[2020-02-09 13:27] LABS: BASOPHILS % (AUTO) 0 % (0-10); EOSINOPHILS # (AUTO) 0.1 10^3/uL (0.0-0.3); EOSINOPHILS % (AUTO) 1 % (0-10); LYMPHOCYTES # (AUTO) 0.9 X 10^3 (1.0-4.0); LYMPHOCYTES % (AUTO) 11 % (12-44); MONOCYTES # (AUTO) 1.2 X 10^3 (0.0-1.0); MONOCYTES % (AUTO) 14 % (0-12); NEUTROPHILS % (AUTO) 73 % (42-75)
[2020-02-09 13:40] LABS: INR 1.1 (0.8-1.4); PROTHROMBIN TIME PATIENT 14.2 SEC (12.2-14.7)
--- NOTE | 2020-02-09 13:42 | NUR ---
This RN talked to daughter. She stated, "No not on hospice. He elected no treatment for his cancer January 10. 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 He has had all his meds this morning an that was a astruggle. Does not follow commands well. Only drinking about 12 oz maybe 16 oz of fluids each day at least since early last week. Not eating much, hadn't at since yesterday evening but did get small bottle of apple juice down w pills about 11:30. BS @ 12:30 was 200 after he had apple juice. We did not do a bolus since he hasn't eaten food we just let the pump manage his BS with what basal insulin he is getting so we don't have to caruso low blood sugar." "They did a UA at [facility] yesterday, no bacteria on long dip but SP was 1.030. They sent it for culture and it's not back yet. Was recently on bactrim for the lymphedema finished it on 02/01/2020. Stopped plavix 2 days ago due to cancer tumors bleeding, switched to 81 mg aspirin once daily." "He has been being treated for squamous cell carcinoma for the last 2 years. He has had the tumor excused ind 2017, it recovered in 2018 an the did 35 treatments of radiation an that ended mid january 2019. He fell an broke rt hip in January 31, 2019, fall tumor in lt axillary reoccured an was found by ultra sound. He developed lymphedema in lt arm end of october. They went back in November 14, 2019 to remove the tumor as it had gotten bigger. They could NOT remove the tumor as it was wrapped around nerves and main blood supply to that lt arm. Instead they could visibly see the center of the tumor was narcotic so for some reason unbeknow to me the cut into the center of the tumor to biopsy it again instead of just leaving it undisturbed. The same day of survery after he got home mom noticed new lesions forming ouotside of the surgical site an ever since then they ahve been growing multiplying an spreading and are now on chest/trunk/face/ears/arms and his back.""His only treatment option is IMMUNOTHERAPY. 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 At his last oncolory appointment he elected NO TREATMENT due to the unlikely stephenson that he would survive the treatment let alone even go into remission an the damage it would cause to his donated kidney. He did not want to take any meds that were going to kill the kidney and DOES NOT want to do dialysis. He elected to wait on starting hospice at that time due to mom still being able to take care of him. When we reach the point where mom and or us girls need more help we will get hospice on board. Christiano was not happy that he elected no treatment but honestly its NO nabouts choice it is my dads choice. That kidney means the world to him as my twin sister was his living donor." "He has had lots of different skin cancers removed over the last many years. The anti rejection meds he takes stimulates the growth of the cancers but since the tumor under his arm changed forms an is now moy cell carcinoma, that type of cancer is VERY VERY aggressive an very rare. Generally when moy cell is diagnosed if the patient has few additional comorbidities the rate of survival is high but at best 5 years max. Generally if someone is elly enough to go into remission the rate of remission is about 6 months before it recurs."
--- NOTE | 2020-02-09 13:59 | Diagnostic Imaging Report ---
INDICATION: Altered mental status. FINDINGS: Heart size and pulmonary vascularity are normal. There are no consolidating alveolar infiltrates. There are no effusions or pneumothoraces. IMPRESSION: No acute abnormalities in the chest. Dictated by: Dictated on workstation # [id number]
--- NOTE | 2020-02-09 14:02 | NUR ---
Daughter Karlie also stated, "He has been thru hell and it was very difficult to get [place] to accept that he did not want treatment. He almost 75 years old an just wants to live out what donna he has left without being tied to a dialysis machine and with out a bunch of meds killing that kidney or eating holes in his other organs. He is also a [place] vet with agent orange exposure which is what has cause ALL of these problems."
[2020-02-09 14:04] LABS: ALANINE AMINOTRANSFERASE 7 U/L (0-55); ALKALINE PHOSPHATASE 99 U/L (40-136); BILIRUBIN,TOTAL 0.4 MG/DL (0.1-1.0); BUN/CREATININE RATIO 16; CALCIUM 11.8 MG/DL (8.5-10.1); CARBON DIOXIDE 25 MMOL/L (21-32); CHLORIDE 98 MMOL/L (98-107); CREATININE SERUM 1.65 MG/DL (0.60-1.30); GFR ESTIMATED 41; GLUCOSE 231 MG/DL (70-105); MAGNESIUM 1.6 MG/DL (1.6-2.4); POTASSIUM 4.7 MMOL/L (3.6-5.0); SODIUM 131 MMOL/L (135-145)
[2020-02-09 14:05] LABS: ALBUMIN 2.9 GM/DL (3.2-4.5); LIPASE 6 U/L (8-78); TOTAL PROTEIN 7.7 GM/DL (6.4-8.2)
--- NOTE | 2020-02-09 14:08 | Diagnostic Imaging Report ---
INDICATION: Altered mental status. TECHNIQUE: Routine non contrast-enhanced axial images were obtained from the skull base to the vertex. Auto Exposure Controls were utilized during the CT exam to meet ALARA standards for radiation dose reduction COMPARISON: None. FINDINGS: The ventricles and cortical sulci are diffusely prominent, compatible with age-related volume loss. There are confluent areas of abnormal, low attenuation in the periventricular white matter. This is consistent with small vessel ischemic changes; age-indeterminate. There is no prior study available for comparison. There is no midline shift or mass-effect. No acute intra-axial hemorrhage is seen. There are no abnormal areas of increased or decreased density to suggest acute hemorrhage or edema. No extra-axial masses or collections are present. The bony calvarium is intact. The visualized paranasal sinuses show partial opacification of the frontal sinuses. There is also moderate mucosal thickening of the right sphenoid sinus with small air-fluid level. The mastoid air cells are partially opacified on the left. IMPRESSION: 1. No acute intracranial abnormality. No CT evidence of mass, acute infarct or intracranial hemorrhage. 2. Small vessel ischemic changes in the periventricular and subcortical white matter; likely chronic. 3. Paranasal sinus disease. Please correlate for underlying acute sinusitis. 4. Partial opacification of the left mastoid air cells. Please note, in the correct clinical setting, findings may be seen as a sequela of underlying mastoiditis. Clinical correlation is advised. Dictated by: Dictated on workstation # [id number]
[2020-02-09 14:37] VITALS: BP 128/80
--- OUTSIDE RECORDS SUMMARY | 2020-02-09 15:27 | XMS REPORT | Continuity of Care Document ---
Author Organization Unknown Address Unknown Phone Unavailable Allergies Active Description Code Type Severity Reaction Onset Reported/Identified Relationship to Patient Clinical Status Yes PENICILLIN G BENZATHINE MODERATE MODERATE Yes PENICILLIN PENICILLIN Unknown N/A 10/06/2018 Yes Penicillins [id number] Drug Aller gy Unknown N/A 10/07/2018 Medications Medication Packaging Start Date St op Date Route Dosage Sig NORMAL SALINE 1000CC IV BAG INJ 0.9 % (NS 1000CC IV BAG) ml 11/14/2019 11/29/2019 CONTINUOUSEVERY 0 Hour CEFAZOLIN VIAL INJ 1 GM (ANCEF) 11/14/2019 11/14/2019 ONCE&1200 HYDROCODONE/APAP 7.5/325 TAB (STERLING-TAB 7.5/ 325) TAB 11/14/2019 11/24/2019 PRN Q4H Problems Date Dx Coded Attending Type Code Diagnosis Diagnosed By 07/02/1099 RUPAL LINDQUIST, HEAVEN Ot C44.629 SQUAMOUS CELL CARCINOMA SKIN/ LEFT UPPER 10/07/2018 ECHO GEE MD Ot E11.65 TYPE 2 DIABETES MELLITUS WITH HYPERGLYCE 10/07/2018 ECHO GEE MD Ot E78 .5 HYPERLIPIDEMIA, UNSPECIFIED 10/07/2018 ECHO GEE MD Ot E87 .5 HYPERKALEMIA 10/07/2018 EHCO GEE MD Ot H60.12 CELLULITIS OF LEFT EXTERNAL EAR 10/07/2018 ECHO GEE MD Ot I25.10 ATHSCL HEART DISEASE OF [place] CORONARY 10/07/2018 ECHO GEE MD Ot I44 .7 LEFT BUNDLE-BRANCH BLOCK, UNSPECIFIED 10/07/2018 ECHO GEE MD Ot N18 .9 CHRONIC KIDNEY DISEASE, UNSPECIFIED 10/07/2018 ECHO GEE MD Ot Z79 .4 [facility] (CURRENT) USE OF INSULIN 10/07/2018 ECHO GEE MD, Ot Z79.82 [facility] (CURRENT) USE OF ASPIRIN 10/07/2018 ECHO GEE MD Ot Z79.899 OTHER GYMNASTICS COACH (CURRENT) DRUG THERAPY 10/07/2018 ECHO GEE MD, Ot Z87.891 PERSONAL HISTORY OF NICOTINE DEPENDENCE 10/07/2018 ECHO GEE MD Ot Z88 .0 ALLERGY STATUS TO PENICILLIN 10/07/2018 ECHO GEE MD Ot Z94 .0 KIDNEY TRANSPLANT STATUS 10/07/2018 ECHO GEE MD Ot Z95 .5 PRESENCE OF CORONARY ANGIOPLASTY IMPLANT 10/07/2018 ECHO GEE MD Ot E11.65 TYPE 2 DIABETES MELLITUS WITH HYPERGLYCE 10/07/2018 ECHO GEE MD Ot E78 .5 HYPERLIPIDEMIA, UNSPECIFIED 10/07/2018 ECHO GEE MD, Ot E87 .5 HYPERKALEMIA 10/07/2018 ECHO GEE MD Ot H60.12 CELLULITIS OF LEFT EXTERNAL EAR 10/07/2018 ECHO GEE MD Ot I25.10 ATHSCL HEART DISEASE OF [place] CORONARY 10/07/2018 ECHO GEE MD Ot I44 .7 LEFT BUNDLE-BRANCH BLOCK, UNSPECIFIED 10/07/2018 ECHO GEE MD Ot N18 .9 CHRONIC KIDNEY DISEASE, UNSPECIFIED 10/07/2018 ECHO GEE MD Ot Z79 .4 GYMNASTICS COACH (CURRENT) USE OF INSULIN 10/07/2018 ECHO GEE MD Ot Z79.82 [facility] (CURRENT) USE OF ASPIRIN 10/07/2018 ECHO GEE MD Ot Z79.899 OTHER GYMNASTICS COACH (CURRENT) DRUG THERAPY 10/07/2018 ECHO GEE MD Ot Z87.891 PERSONAL HISTORY OF NICOTINE DEPENDENCE 10/07/2018 ECHO GEE MD Ot Z88 .0 ALLERGY STATUS TO PENICILLIN 10/07/2018 ECHO GEE MD Ot Z94 .0 KIDNEY TRANSPLANT STATUS 10/07/2018 ECHO GEE MD Ot Z95 .5 PRESENCE OF CORONARY ANGIOPLASTY IMPLANT 11/04/2018 MAYE ZENG MD Ot C44.5 29 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 11/04/2018 MAYE ZENG MD, Ot 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 AXILLA AN 11/04/2018 KARRI LINDQUIST, MAYE Carlson Ot Z51.0 ENCOUNTER FOR ANTINEOPLASTIC RADIATION T 11/08/2018 BELLA ECHAVARRIA MD Ot E11.622 TYPE 2 DIABETES MELLITUS WITH OTHER SKIN 11/08/2018 BELLA ECHAVARRIA MD Ot 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 [facility] 11/08/2018 BELLA ECHAVARRIA MD, Ot I87.321 CHRONIC VENOUS HYPERTENSION W INFLAMMATI 11/08/2018 BELLA ECHAVARRIA MD, Ot I87.332 CHRONIC VENOUS HTN W ULCER AND INFLAMMAT 11/08/2018 BELLA ECHAVARRIA MD, Ot L97.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 ULCER OF LEFT CALF 11/08/2018 BELLA ECHAVARRIA MD, Ot Z57 .5 OCCUPATIONAL EXPOSURE TO TOXIC AGENTS IN 11/08/2018 BELLA ECHAVARRIA MD, Ot Z94 .0 KIDNEY TRANSPLANT STATUS 11/10/2018 BELLA ECHAVARRIA MD, Ot E11.622 TYPE 2 DIABETES MELLITUS WITH OTHER SKIN 11/10/2018 BELLA ECHAVARRIA MD, Ot 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 [facility] 11/10/2018 BELLA ECHAVARRIA MD, Ot I87.321 CHRONIC VENOUS HYPERTENSION W INFLAMMATI 11/10/2018 BELLA ECHAVARRIA MD, Ot I87.332 CHRONIC VENOUS HTN W ULCER AND INFLAMMAT 11/10/2018 BELLA ECHAVARRIA MD, Ot L97.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 ULCER OF LEFT CALF 11/10/2018 BELLA ECHAVARRIA MD, Ot Z57 .5 OCCUPATIONAL EXPOSURE TO TOXIC AGENTS IN 11/10/2018 BELLA ECHAVARRIA MD, Ot Z94 .0 KIDNEY TRANSPLANT STATUS 11/15/2018 BELLA ECHAVARRIA MD, Ot E11.622 TYPE 2 DIABETES MELLITUS WITH OTHER SKIN 11/15/2018 BELLA ECHAVARRIA MD Ot 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 [facility] 11/15/2018 BELLA ECHAVARRIA MD, Ot I87.321 CHRONIC VENOUS HYPERTENSION W INFLAMMATI 11/15/2018 BELLA ECHAVARRIA MD, Ot I87.332 CHRONIC VENOUS HTN W ULCER AND INFLAMMAT 11/15/2018 BELLA ECHAVARRIA MD Ot L97.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 ULCER OF LEFT CALF 11/15/2018 BELLA ECHAVARRIA MD, Ot Z77.098 CONTACT W AND EXPSR TO OTH HAZARD, CHIEF 11/15/2018 BELLA ECHAVARRIA MD Ot Z94 .0 KIDNEY TRANSPLANT STATUS 11/24/2018 KARRI LINDQUIST, MAYE Carlson Ot C44.5 29 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 11/24/2018 KARRI LINDQUIST, MAYE Carlson Ot 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 AXILLA AN 11/24/2018 KARRI LINDQUIST, MAYE Carlson Ot Z51.0 ENCOUNTER FOR ANTINEOPLASTIC RADIATION T 11/24/2018 BELLA ECHAVARRIA MD, Ot E11.622 TYPE 2 DIABETES MELLITUS WITH OTHER SKIN 11/24/2018 BELLA ECHAVARRIA MD Ot 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 [facility] 11/24/2018 BELAL ECHAVARRIA MD, Ot I87.321 CHRONIC VENOUS HYPERTENSION W INFLAMMATI 11/24/2018 BELLA ECHAVARRIA MD, Ot I87.332 CHRONIC VENOUS HTN W ULCER AND INFLAMMAT 11/24/2018 BELLA ECHAVARRIA MD Ot L97.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 ULCER OF LEFT CALF 11/24/2018 BELLA ECHAVARRIA MD, Ot Z57 .5 OCCUPATIONAL EXPOSURE TO TOXIC AGENTS IN 11/24/2018 BELLA ECHAVARRIA MD, Ot Z94 .0 KIDNEY TRANSPLANT STATUS 11/24/2018 BELLA ECHAVARRIA MD, Ot E11.622 TYPE 2 DIABETES MELLITUS WITH OTHER SKIN 11/24/2018 BELLA ECHAVARRIA MD Ot 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 [facility] 11/24/2018 BELLA ECHAVARRIA MD Ot I87.321 CHRONIC VENOUS HYPERTENSION W INFLAMMATI 11/24/2018 BELLA ECHAVARRIA MD Ot I87.332 CHRONIC VENOUS HTN W ULCER AND INFLAMMAT 11/24/2018 BELLA ECHAVARRIA MD Ot L97.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 ULCER OF LEFT CALF 11/24/2018 BELLA ECHAVARRIA MD, Ot Z57 .5 OCCUPATIONAL EXPOSURE TO TOXIC AGENTS IN 11/24/2018 BELLA ECHAVARRIA MD Ot Z94 .0 KIDNEY TRANSPLANT STATUS 11/24/2018 BELLA ECHAVARRIA MD, Ot E11.622 TYPE 2 DIABETES MELLITUS WITH OTHER SKIN 11/24/2018 BELLA ECHAVARRIA MD Ot 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 [facility] 11/24/2018 BELLA ECHAVARRIA MD Ot I87.321 CHRONIC VENOUS HYPERTENSION W INFLAMMATI 11/24/2018 BELLA ECHAVARRIA MD Ot I87.332 CHRONIC VENOUS HTN W ULCER AND INFLAMMAT 11/24/2018 BELLA ECHAVARRIA MD, Ot L97.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 ULCER OF LEFT CALF 11/24/2018 BELLA ECHAVARRIA MD, Ot Z77.098 CONTACT W AND EXPSR TO OTH HAZARD, CHIEF 11/24/2018 BELLA ECHAVARRIA MD, Ot Z94 .0 KIDNEY TRANSPLANT STATUS 11/26/2018 KARRI LINDQUIST, MAYE Carlson Ot C44.5 29 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 11/26/2018 MAYE ZENG MD, Ot 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 AXILL[place] AN 11/26/2018 MAYE ZENG MD, Ot Z51.0 ENCOUNTER FOR ANTINEOPLASTIC RADIATION T 11/26/2018 BELLA ECHAVARRIA MD, Ot E11.622 TYPE 2 DIABETES MELLITUS WITH OTHER SKIN 11/26/2018 BELLA ECHAVARRIA MD Ot 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 [facility] 11/26/2018 BELLA ECHAVARRIA MD, Ot I87.321 CHRONIC VENOUS HYPERTENSION W INFLAMMATI 11/26/2018 BELLA ECHAVARRIA MD, Ot I87.332 CHRONIC VENOUS HTN W ULCER AND INFLAMMAT 11/26/2018 BELLA ECHAVARRIA MD, Ot L97.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 ULCER OF LEFT CALF 11/26/2018 BELLA ECHAVARRIA MD, Ot Z57 .5 OCCUPATIONAL EXPOSURE TO TOXIC AGENTS IN 11/26/2018 BELLA ECHAVARRIA MD, Ot Z94 .0 KIDNEY TRANSPLANT STATUS 11/26/2018 BELLA ECHAVARRIA MD, Ot E11.622 TYPE 2 DIABETES MELLITUS WITH OTHER SKIN 11/26/2018 BELLA ECHAVARRIA MD Ot 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 [facility] 11/26/2018 BELLA ECHAVARRIA MD, Ot I87.321 CHRONIC VENOUS HYPERTENSION W INFLAMMATI 11/26/2018 BELLA ECHAVARRIA MD, Ot I87.332 CHRONIC VENOUS HTN W ULCER AND INFLAMMAT 11/26/2018 BELLA ECHAVARRIA MD, Ot L97.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 ULCER OF LEFT CALF 11/26/2018 BELLA ECHAVARRIA MD, Ot Z57 .5 OCCUPATIONAL EXPOSURE TO TOXIC AGENTS IN 11/26/2018 BELLA ECHAVARRIA MD Ot Z94 .0 KIDNEY TRANSPLANT STATUS 11/26/2018 BELLA ECHAVARRIA MD, Ot E11.622 TYPE 2 DIABETES MELLITUS WITH OTHER SKIN 11/26/2018 BELLA ECHAVARRIA MD, Ot 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 [facility] 11/26/2018 BELLA ECHAVARRIA MD, Ot I87.321 CHRONIC VENOUS HYPERTENSION W INFLAMMATI 11/26/2018 BELLA ECHAVARRIA MD, Ot I87.332 CHRONIC VENOUS HTN W ULCER AND INFLAMMAT 11/26/2018 BELLA ECHAVARRIA MD Ot L97.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 ULCER OF LEFT CALF 11/26/2018 EBLLA ECHAVARRIA MD, Ot Z77.098 CONTACT W AND EXPSR TO OTH HAZARD, CHIEF 11/26/2018 BELLA ECHAVARRIA MD, Ot Z94 .0 KIDNEY TRANSPLANT STATUS 11/26/2018 BELLA ECHAVARRIA MD, Ot E11.622 TYPE 2 DIABETES MELLITUS WITH OTHER SKIN 11/26/2018 BELLA ECHAVARRIA MD, Ot 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 [facility] 11/26/2018 BELLA ECHAVARRIA MD, Ot I87.321 CHRONIC VENOUS HYPERTENSION W INFLAMMATI 11/26/2018 BELLA ECHAVARRIA MD, Ot I87.332 CHRONIC VENOUS HTN W ULCER AND INFLAMMAT 11/26/2018 BELLA ECHAVARRIA MD Ot L97.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 ULCER OF LEFT CALF 11/26/2018 BELLA ECHAVARRIA MD Ot Z57 .5 OCCUPATIONAL EXPOSURE TO TOXIC AGENTS IN 11/26/2018 BELLA ECHAVARRIA MD, Ot Z94 .0 KIDNEY TRANSPLANT STATUS 11/29/2018 BELLA ECHAVARRIA MD, Ot E11.622 TYPE 2 DIABETES MELLITUS WITH OTHER SKIN 11/29/2018 BELLA ECHAVARRIA MD Ot 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 [facility] 11/29/2018 BELLA ECHAVARRIA MD Ot I87.321 CHRONIC VENOUS HYPERTENSION W INFLAMMATI 11/29/2018 BELLA ECHAVARRIA MD Ot I87.332 CHRONIC VENOUS HTN W ULCER AND INFLAMMAT 11/29/2018 BELLA ECHAVARRIA MD Ot L97.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 ULCER OF LEFT CALF 11/29/2018 BELLA ECHAVARRIA MD, Ot Z57 .5 OCCUPATIONAL EXPOSURE TO TOXIC AGENTS IN 11/29/2018 BELLA ECHAVARRIA MD Ot Z94 .0 KIDNEY TRANSPLANT STATUS 11/30/2018 BELLA ECHAVARRIA MD Ot E11.622 TYPE 2 DIABETES MELLITUS WITH OTHER SKIN 11/30/2018 BELLA ECHAVARRIA MD Ot I87.323 CHRONIC VENOUS HTN W INFLAMMATION OF RAIN[place] 11/30/2018 BELLA ECHAVARRIA MD Ot L97.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 ULCER OF LEFT CALF 11/30/2018 BELLA ECHAVARRIA MD, Ot Z77.098 CONTACT W AND EXPSR TO OT HAZARD, CHIEF 11/30/2018 BELLA ECHAVARRIA MD, Ot Z94 .0 KIDNEY TRANSPLANT STATUS 12/01/2018 BELLA ECHAVARRIA MD, Ot E11.622 TYPE 2 DIABETES MELLITUS WITH OTHER SKIN 12/01/2018 BELLA ECHAVARRIA MD Ot 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 ULC 12/01/2018 BELLA ECHAVARRIA MD, Ot I87.321 CHRONIC VENOUS HYPERTENSION W INFLAMMATI 12/01/2018 BELLA ECHAVARRIA MD, Ot I87.332 CHRONIC VENOUS HTN W ULCER AND INFLAMMAT 12/01/2018 BELLA ECHAVARRIA MD, Ot L97.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 ULCER OF LEFT CALF 12/01/2018 BELLA ECHAVARRIA MD, Ot Z57 .5 OCCUPATIONAL EXPOSURE TO TOXIC AGENTS IN 12/01/2018 BELLA ECHAVARRIA MD, Ot Z94 .0 KIDNEY TRANSPLANT STATUS 12/02/2018 BELLA ECHAVARRIA MD, Ot E11.622 TYPE 2 DIABETES MELLITUS WITH OTHER SKIN 12/02/2018 BELLA ECHAVARRIA MD, Ot 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 [facility] 12/02/2018 BELLA ECHAVARRIA MD, Ot I87.321 CHRONIC VENOUS HYPERTENSION W INFLAMMATI 12/02/2018 BELLA ECHAVARRIA MD Ot I87.332 CHRONIC VENOUS HTN W ULCER AND INFLAMMAT 12/02/2018 BELLA ECHAVARRIA MD, Ot L97.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 ULCER OF LEFT CALF 12/02/2018 BELLA ECHAVARRIA MD, Ot Z77.098 CONTACT W AND EXPSR TO OT HAZARD, CHIEF 12/02/2018 BELLA ECHAVARRIA MD, Ot Z94 .0 KIDNEY TRANSPLANT STATUS 12/07/2018 BELLA ECHAVARRIA MD, Ot E11.622 TYPE 2 DIABETES MELLITUS WITH OTHER SKIN 12/07/2018 BELLA ECHAVARRIA MD Ot I87.321 CHRONIC VENOUS HYPERTENSION W INFLAMMATI 12/07/2018 BELLA ECHAVARRIA MD Ot I87.332 CHRONIC VENOUS HTN W ULCER AND INFLAMMAT 12/07/2018 BELLA ECHAVARRIA MD Ot L97.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 ULCER OF LEFT CALF 12/07/2018 BELLA ECHAVARRIA MD, Ot Z77.098 CONTACT W AND EXPSR TO OTH HAZARD, CHIEF 12/07/2018 BELLA ECHAVARRIA MD, Ot Z94 .0 KIDNEY TRANSPLANT STATUS 12/07/2018 BELLA ECHAVARRIA MD, Ot E11.622 TYPE 2 DIABETES MELLITUS WITH OTHER SKIN 12/07/2018 BELLA ECHAVARRIA MD, Ot 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 [facility] 12/07/2018 BELLA ECHAVARRIA MD, Ot I87.321 CHRONIC VENOUS HYPERTENSION W INFLAMMATI 12/07/2018 BELLA ECHAVARRIA MD, Ot I87.332 CHRONIC VENOUS HTN W ULCER AND INFLAMMAT 12/07/2018 BELLA ECHAVARRIA MD, Ot L97.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 ULCER OF LEFT CALF 12/07/2018 BELLA ECHAVARRIA MD, Ot Z57 .5 OCCUPATIONAL EXPOSURE TO TOXIC AGENTS IN 12/07/2018 BELLA ECHAVARRIA MD, Ot Z94 .0 KIDNEY TRANSPLANT STATUS 12/10/2018 MAYE ZENG MD, Ot C44.5 29 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 12/10/2018 MAYE ZENG MD, Ot 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 AXILLA AN 12/10/2018 MAYE ZENG MD, Ot Z51.0 ENCOUNTER FOR ANTINEOPLASTIC RADIATION T 12/10/2018 BELLA ECHAVARRIA MD, Ot E11.622 TYPE 2 DIABETES MELLITUS WITH OTHER SKIN 12/10/2018 BELLA ECHAVARRIA MD, Ot 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 [facility] 12/10/2018 BELLA ECHAVARRIA MD, Ot I87.321 CHRONIC VENOUS HYPERTENSION W INFLAMMATI 12/10/2018 BELLA ECHAVARRIA MD, Ot I87.332 CHRONIC VENOUS HTN W ULCER AND INFLAMMAT 12/10/2018 BELLA ECHAVARRIA MD, Ot L97.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 ULCER OF LEFT CALF 12/10/2018 BELLA ECHAVARRIA MD, Ot Z57 .5 OCCUPATIONAL EXPOSURE TO TOXIC AGENTS IN 12/10/2018 BELLA ECHAVARRIA MD, Ot Z94 .0 KIDNEY TRANSPLANT STATUS 12/10/2018 BELLA ECHAVARRIA MD, Ot E11.622 TYPE 2 DIABETES MELLITUS WITH OTHER SKIN 12/10/2018 BELLA ECHAVARRIA MD, Ot 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 [facility] 12/10/2018 BELLA ECHAVARRIA MD, Ot I87.321 CHRONIC VENOUS HYPERTENSION W INFLAMMATI 12/10/2018 BELLA ECHAVARRIA MD, Ot I87.332 CHRONIC VENOUS HTN W ULCER AND INFLAMMAT 12/10/2018 BELLA ECHAVARRIA MD, Ot L97.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 ULCER OF LEFT CALF 12/10/2018 BELLA ECHAVARRIA MD, Ot Z57 .5 OCCUPATIONAL EXPOSURE TO TOXIC AGENTS IN 12/10/2018 BELLA ECHAVARRIA MD, Ot Z94 .0 KIDNEY TRANSPLANT STATUS 12/10/2018 BELLA ECHAVARRIA MD, Ot E11.622 TYPE 2 DIABETES MELLITUS WITH OTHER SKIN 12/10/2018 BELLA ECHAVARRIA MD Ot 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 ULC 12/10/2018 BELLA ECHAVARRIA MD, Ot I87.321 CHRONIC VENOUS HYPERTENSION W INFLAMMATI 12/10/2018 BELLA ECHAVARRIA MD, Ot I87.332 CHRONIC VENOUS HTN W ULCER AND INFLAMMAT 12/10/2018 BELLA ECHAVARRIA MD, Ot L97.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 ULCER OF LEFT CALF 12/10/2018 BELLA ECHAVARRIA MD, Ot Z77.098 CONTACT W AND EXPSR TO OTH HAZARD, CHIEF 12/10/2018 BELLA ECHAVARRIA MD, Ot Z94 .0 KIDNEY TRANSPLANT STATUS 12/10/2018 BELLA ECHAVARRIA MD, Ot E11.622 TYPE 2 DIABETES MELLITUS WITH OTHER SKIN 12/10/2018 BELLA ECHAVARRIA MD, Ot I87.321 CHRONIC VENOUS HYPERTENSION W INFLAMMATI 12/10/2018 BELLA ECHAVARRIA MD, Ot I87.332 CHRONIC VENOUS HTN W ULCER AND INFLAMMAT 12/10/2018 BELLA ECHAVARRIA MD, Ot L97.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 ULCER OF LEFT CALF 12/10/2018 BELLA ECHAVARRIA MD, Ot Z77.098 CONTACT W AND EXPSR TO OTH HAZARD, CHIEF 12/10/2018 BELLA ECHAVARRIA MD, Ot Z94 .0 KIDNEY TRANSPLANT STATUS 12/10/2018 BELLA ECHAVARRIA MD, Ot E11.622 TYPE 2 DIABETES MELLITUS WITH OTHER SKIN 12/10/2018 BELLA ECHAVARRIA MD, Ot I87.323 CHRONIC VENOUS HTN W INFLAMMATION OF RAINER 12/10/2018 BELLA ECHAVARRIA MD, Ot L97.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 ULCER OF LEFT CALF 12/10/2018 BELLA ECHAVARRIA MD, Ot Z77.098 CONTACT W AND EXPSR TO OT HAZARD, CHIEF 12/10/2018 BELLA ECHAVARRIA MD Ot Z94 .0 KIDNEY TRANSPLANT STATUS 12/10/2018 JACEK GRIDER APRN [...] AND EXPSR TO OT HAZARD, CHIEF 12/10/2018 JACEK GRIDER APRN Ot Z94.0 KIDNEY TRANSPLANT STATUS 12/13/2018 MAYE ZENG MD, Ot C44.5 29 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 12/13/2018 MAYE ZENG MD, Ot 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 AXILLA AN 12/13/2018 MAYE ZENG MD, Ot Z51.0 ENCOUNTER FOR ANTINEOPLASTIC RADIATION T 12/13/2018 BELLA ECHAVARRIA MD, Ot E11.622 TYPE 2 DIABETES MELLITUS WITH OTHER SKIN 12/13/2018 BELLA ECHAVARRIA MD Ot 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 [facility] 12/13/2018 BELLA ECHAVARRIA MD, Ot I87.321 CHRONIC VENOUS HYPERTENSION W INFLAMMATI 12/13/2018 BELLA ECHAVARRIA MD Ot I87.332 CHRONIC VENOUS HTN W ULCER AND INFLAMMAT 12/13/2018 BELLA ECHAVARRIA MD Ot L97.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 ULCER OF LEFT CALF 12/13/2018 BELLA ECHAVARRIA MD, Ot Z57 .5 OCCUPATIONAL EXPOSURE TO TOXIC AGENTS IN 12/13/2018 BELLA ECHAVARRIA MD, Ot Z94 .0 KIDNEY TRANSPLANT STATUS 12/13/2018 BELLA ECHAVARRIA MD, Ot E11.622 TYPE 2 DIABETES MELLITUS WITH OTHER SKIN 12/13/2018 BELLA ECHAVARRIA MD Ot 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 [facility] 12/13/2018 ITALIA MD, BELLA G Ot I87.321 CHRONIC VENOUS HYPERTENSION W INFLAMMATI 12/13/2018 BELLA ECHAVARRIA MD Ot I87.332 CHRONIC VENOUS HTN W ULCER AND INFLAMMAT 12/13/2018 BELLA ECHAVARRIA MD, Ot L97.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 ULCER OF LEFT CALF 12/13/2018 BELLA ECHAVARRIA MD, Ot Z57 .5 OCCUPATIONAL EXPOSURE TO TOXIC AGENTS IN 12/13/2018 BELLA ECHAVARRIA MD Ot Z94 .0 KIDNEY TRANSPLANT STATUS 12/13/2018 BELLA ECHAVARRIA MD, Ot E11.622 TYPE 2 DIABETES MELLITUS WITH OTHER SKIN 12/13/2018 BELLA ECHAVARRIA MD Ot 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 [facility] 12/13/2018 BELLA ECHAVARRIA MD, Ot I87.321 CHRONIC VENOUS HYPERTENSION W INFLAMMATI 12/13/2018 BELLA ECHAVARRIA MD, Ot I87.332 CHRONIC VENOUS HTN W ULCER AND INFLAMMAT 12/13/2018 BELLA ECHAVARRIA MD, Ot L97.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 ULCER OF LEFT CALF 12/13/2018 BELLA ECHAVARRIA MD, Ot Z77.098 CONTACT W AND EXPSR TO OTH HAZARD, CHIEF 12/13/2018 BELLA ECHAVARRIA MD Ot Z94 .0 KIDNEY TRANSPLANT STATUS 12/13/2018 BELAL ECHAVARRIA MD, Ot E11.622 TYPE 2 DIABETES MELLITUS WITH OTHER SKIN 12/13/2018 BELLA ECHAVARRIA MD, Ot I87.321 CHRONIC VENOUS HYPERTENSION W INFLAMMATI 12/13/2018 BELLA ECHAVARRIA MD, Ot I87.332 CHRONIC VENOUS HTN W ULCER AND INFLAMMAT 12/13/2018 BELLA ECHAVARRIA MD Ot L97.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 ULCER OF LEFT CALF 12/13/2018 BELLA ECHAVARRIA MD, Ot Z77.098 CONTACT W AND EXPSR TO OTH HAZARD, CHIEF 12/13/2018 BELLA ECHAVARRIA MD, Ot Z94 .0 KIDNEY TRANSPLANT STATUS 12/13/2018 BELLA ECHAVARRIA MD, Ot E11.622 TYPE 2 DIABETES MELLITUS WITH OTHER SKIN 12/13/2018 BELLA ECHAVARRIA MD, Ot I87.323 CHRONIC VENOUS HTN W INFLAMMATION OF RAINER 12/13/2018 BELLA ECHAVARRIA MD Ot L97.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 ULCER OF LEFT CALF 12/13/2018 BELLA ECHAVARRIA MD, Ot Z77.098 CONTACT W AND EXPSR TO OTH HAZARD, CHIEF 12/13/2018 BELAL ECHAVARRIA MD Ot Z94 .0 KIDNEY TRANSPLANT STATUS 12/13/2018 JACEK GRIDER APRN Ot E11.622 TYPE 2 DIABETES MELLITUS WITH OTHER SKIN 12/13/2018 JACEK GRIDER PARTITION MAKING MACHINE OPERATOR Ot I87.321 CHRONIC VENOUS HYPERTENSION W INFLAMMATI 12/13/2018 JACEK GRIDER PARTITION MAKING MACHINE OPERATOR Ot I87.332 CHRONIC VENOUS HTN W ULCER AND INFLAMMAT 12/13/2018 JACEK GRIDER PARTITION MAKING MACHINE OPERATOR Ot L97.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 ULCER OF LEFT CALF 12/13/2018 JACEK GRIDER PARTITION MAKING MACHINE OPERATOR Ot Z77.098 CONTACT W AND EXPSR TO OT HAZARD, CHIEF 12/13/2018 JACEK GRIDER PARTITION MAKING MACHINE OPERATOR Ot Z94.0 KIDNEY TRANSPLANT STATUS 12/20/2018 BELLA ECHAVARRIA MD, Ot E11.622 TYPE 2 DIABETES MELLITUS WITH OTHER SKIN 12/20/2018 BELLA ECHAVARRIA MD, Ot I87.323 CHRONIC VENOUS HTN W INFLAMMATION OF RAINER 12/20/2018 BELLA ECHAVARRIA MD, Ot L97.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 ULCER OF LEFT CALF 12/20/2018 BELLA ECHAVARRIA MD, Ot Z77.098 CONTACT W AND EXPSR TO OT HAZARD, CHIEF 12/20/2018 BELLA ECHAVARRIA MD, Ot Z94 .0 KIDNEY TRANSPLANT STATUS 12/22/2018 BELLA ECHAVARRIA MD, Ot E11.622 TYPE 2 DIABETES MELLITUS WITH OTHER SKIN 12/22/2018 BELLA ECHAVARRIA MD, Ot I87.323 CHRONIC VENOUS HTN W INFLAMMATION OF RAINER 12/22/2018 BELLA ECHAVARRIA MD, Ot L97.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 ULCER OF LEFT CALF 12/22/2018 BELLA ECHAVARRIA MD, Ot Z77.098 CONTACT W AND EXPSR TO OT HAZARD, CHIEF 12/22/2018 BELLA ECHAVARRIA MD, Ot Z94 .0 KIDNEY TRANSPLANT STATUS 12/23/2018 BELLA ECHAVARRIA MD, Ot E11.622 TYPE 2 DIABETES MELLITUS WITH OTHER SKIN 12/23/2018 BELLA ECHAVARRIA MD, Ot I87.321 CHRONIC VENOUS HYPERTENSION W INFLAMMATI 12/23/2018 BELLA ECHAVARRIA MD, Ot I87.332 CHRONIC VENOUS HTN W ULCER AND INFLAMMAT 12/23/2018 BELLA ECHAVARRIA MD, Ot L97.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 ULCER OF LEFT CALF 12/23/2018 BELLA ECHAVARRIA MD Ot Z77.098 CONTACT W AND EXPSR TO OTH HAZARD, CHIEF 12/23/2018 BELLA ECHAVARRIA MD Ot Z94 .0 KIDNEY TRANSPLANT STATUS 12/24/2018 BELLA ECHAVARRIA MD Ot E11.622 TYPE 2 DIABETES MELLITUS WITH OTHER SKIN 12/24/2018 BELLA ECHAVARRIA MD Ot I87.321 CHRONIC VENOUS HYPERTENSION W INFLAMMATI 12/24/2018 BELLA ECHAVARRIA MD Ot I87.332 CHRONIC VENOUS HTN W ULCER AND INFLAMMAT 12/24/2018 BELLA ECHAVARRIA MD Ot L97.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 ULCER OF LEFT CALF 12/24/2018 BELLA ECHAVARRIA MD, Ot Z77.098 CONTACT W AND EXPSR TO OTH HAZARD, CHIEF 12/24/2018 BELLA ECHAVARRIA MD Ot Z94 .0 KIDNEY TRANSPLANT STATUS 12/30/2018 JACEK GRIDER PARTITION MAKING MACHINE OPERATOR Ot E11.622 TYPE 2 DIABETES MELLITUS WITH OTHER SKIN 12/30/2018 JACEK GRIDER PARTITION MAKING MACHINE OPERATOR Ot I87.321 CHRONIC VENOUS HYPERTENSION W INFLAMMATI 12/30/2018 JACEK GRIDER PARTITION MAKING MACHINE OPERATOR Ot I87.332 CHRONIC VENOUS HTN W ULCER AND INFLAMMAT 12/30/2018 JACEK GRIDER PARTITION MAKING MACHINE OPERATOR Ot L97.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 ULCER OF LEFT CALF 12/30/2018 JACEK GRIDER PARTITION MAKING MACHINE OPERATOR Ot Z77.098 CONTACT W AND EXPSR TO OTH HAZARD, CHIEF 12/30/2018 JACEK GRIDER PARTITION MAKING MACHINE OPERATOR Ot Z94.0 KIDNEY TRANSPLANT STATUS 01/06/2019 BELLA ECHAVARRIA MD Ot E11.622 TYPE 2 DIABETES MELLITUS WITH OTHER SKIN 01/06/2019 BELLA ECHAVARRIA MD Ot I87.321 CHRONIC VENOUS HYPERTENSION W INFLAMMATI 01/06/2019 BELLA ECHAVARRIA MD Ot I87.332 CHRONIC VENOUS HTN W ULCER AND INFLAMMAT 01/06/2019 BELLA ECHAVARRIA MD Ot L97.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 ULCER OF LEFT CALF 01/06/2019 BELLA ECHAVARRIA MD Ot Z77.098 CONTACT W AND EXPSR TO OTH HAZARD, CHIEF 01/06/2019 BELLA ECHAVARRIA MD Ot Z94 .0 KIDNEY TRANSPLANT STATUS 01/06/2019 JACEK GRIDER PARTITION MAKING MACHINE OPERATOR Ot E11.622 TYPE 2 DIABETES MELLITUS WITH OTHER SKIN 01/06/2019 JACEK GRIDER APRN Ot I87.321 CHRONIC VENOUS HYPERTENSION W INFLAMMATI 01/06/2019 JACEK GRIDER APRN Ot I87.332 CHRONIC VENOUS HTN W ULCER AND INFLAMMAT 01/06/2019 JACEK GRIDER APRN Ot L97.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 ULCER OF LEFT CALF 01/06/2019 JACEK GRIDER APRN Ot Z77.098 CONTACT W AND EXPSR TO OT HAZARD, CHIEF 01/06/2019 JACEK GRIDER APRN Ot Z94.0 KIDNEY TRANSPLANT STATUS 01/07/2019 BELLA ECHAVARRIA MD, Ot E11.622 TYPE 2 DIABETES MELLITUS WITH OTHER SKIN 01/07/2019 BELLA ECHAVARRIA MD, Ot I87.321 CHRONIC VENOUS HYPERTENSION W INFLAMMATI 01/07/2019 BELLA ECHAVARRIA MD Ot I87.332 CHRONIC VENOUS HTN W ULCER AND INFLAMMAT 01/07/2019 BELLA ECHAVARRIA MD Ot L97.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 ULCER OF LEFT CALF 01/07/2019 BELLA ECHAVARRIA MD, Ot Z77.098 CONTACT W AND EXPSR TO OT HAZARD, CHIEF 01/07/2019 BELLA ECHAVARRIA MD, Ot Z94 .0 KIDNEY TRANSPLANT STATUS 01/11/2019 KARRI LINDQUIST, MAYE Carlson Ot C44.5 29 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 01/11/2019 KARRI LINDQUIST, MAYE Carlson Ot C77.3 SEC [...] W ULCER AND INFLAMMAT 01/11/2019 BELLA ECHAVARRIA MD Ot L97.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 ULCER OF LEFT CALF 01/11/2019 BELLA ECHAVARRIA MD, Ot Z77.098 CONTACT W AND EXPSR TO OT HAZARD, CHIEF 01/11/2019 BELLA ECHAVARRIA MD Ot Z94 .0 KIDNEY TRANSPLANT STATUS 01/12/2019 BELLA ECHAVARRIA MD, Ot E11.622 TYPE 2 DIABETES MELLITUS WITH OTHER SKIN 01/12/2019 BELLA ECHAVARRIA MD, Ot I87.321 CHRONIC VENOUS HYPERTENSION W INFLAMMATI 01/12/2019 BELLA ECHAVARRIA MD, Ot I87.332 CHRONIC VENOUS HTN W ULCER AND INFLAMMAT 01/12/2019 BELLA ECHAVARRIA MD, Ot L97.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 ULCER OF LEFT CALF 01/12/2019 BELLA ECHAVARRIA MD, Ot Z77.098 CONTACT W AND EXPSR TO [facility], CHIEF 01/12/2019 BELLA ECHAVARRIA MD, Ot Z94 .0 KIDNEY TRANSPLANT STATUS 01/13/2019 BELLA ECHAVARRIA MD, Ot E11.622 TYPE 2 DIABETES MELLITUS WITH OTHER SKIN 01/13/2019 BELLA ECHAVARRIA MD, Ot I87.333 CHRONIC VENOUS HTN W ULCER AND INFLAM OF 01/13/2019 BELLA ECHAVARRIA MD, Ot L97.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 ULCER OF LEFT CALF 01/13/2019 BELLA ECHAVARRIA MD, Ot Z77.098 CONTACT W AND EXPSR TO [facility], CHIEF 01/13/2019 BELLA ECHAVARRIA MD, Ot Z94 .0 KIDNEY TRANSPLANT STATUS 01/16/2019 BELLA ECHAVARRIA MD, Ot E11.622 TYPE 2 DIABETES MELLITUS WITH OTHER SKIN 01/16/2019 BELLA ECHAVARRIA MD, Ot I87.333 CHRONIC VENOUS HTN W ULCER AND INFLAM OF 01/16/2019 BELLA ECHAVARRIA MD, Ot L97.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 ULCER OF LEFT CALF 01/16/2019 BELLA ECHAVARRIA MD, Ot Z77.098 CONTACT W AND EXPSR TO [facility], CHIEF 01/16/2019 BELLA ECHAVARRIA MD, Ot Z94 .0 KIDNEY TRANSPLANT STATUS 01/16/2019 MAYE ZENG MD, Ot C44.5 29 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 01/16/2019 MAYE ZENG MD, Ot 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 [place] AN 01/16/2019 MAYE ZENG MD, Ot Z51.0 ENCOUNTER FOR ANTINEOPLASTIC RADIATION T 01/19/2019 BELLA ECHAVARRIA MD, Ot E11.622 TYPE 2 DIABETES MELLITUS WITH OTHER SKIN 01/19/2019 BELLA ECHAVARRIA MD, Ot I87.321 CHRONIC VENOUS HYPERTENSION W INFLAMMATI 01/19/2019 BELLA ECHAVARRIA MD, Ot I87.332 CHRONIC VENOUS HTN W ULCER AND INFLAMMAT 01/19/2019 BELLA ECHAVARRIA MD, Ot L97.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 ULCER OF LEFT CALF 01/19/2019 BELLA ECHAVARRIA MD, Ot Z77.098 CONTACT W AND EXPSR TO [facility], CHIEF 01/19/2019 BELLA ECHAVARRIA MD, Ot Z94 .0 KIDNEY TRANSPLANT STATUS 01/20/2019 BELLA ECHAVARRIA MD Ot E11.622 TYPE 2 DIABETES MELLITUS WITH OTHER SKIN 01/20/2019 BELLA ECHAVARRIA MD, Ot I87.321 CHRONIC VENOUS HYPERTENSION W INFLAMMATI 01/20/2019 BELLA ECHAVARRIA MD, Ot I87.332 CHRONIC VENOUS HTN W ULCER AND INFLAMMAT 01/20/2019 BELLA ECHAVARRIA MD Ot L97.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 ULCER OF LEFT CALF 01/20/2019 BELLA ECHAVARRIA MD, Ot Z77.098 CONTACT W AND EXPSR TO [facility], CHIEF 01/20/2019 BELLA ECHAVARRIA MD, Ot Z94 .0 KIDNEY TRANSPLANT STATUS 01/20/2019 BELLA ECHAVARRIA MD, Ot E11.622 TYPE 2 DIABETES MELLITUS WITH OTHER SKIN 01/20/2019 BELLA ECHAVARRIA MD Ot I87.333 CHRONIC VENOUS HTN W ULCER AND INFLAM OF 01/20/2019 BELLA ECHAVARRIA MD Ot L97.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 ULCER OF LEFT CALF 01/20/2019 BELLA ECHAVARRIA MD, Ot Z77.098 CONTACT W AND EXPSR TO [facility], CHIEF 01/20/2019 BELLA ECHAVARRIA MD Ot Z94 .0 KIDNEY TRANSPLANT STATUS 01/26/2019 BELLA ECHAVARRIA MD, Ot E11.628 TYPE 2 DIABETES MELLITUS WITH OTHER SKIN 01/26/2019 BELLA ECHAVARRIA MD, Ot I87.333 CHRONIC VENOUS HTN W ULCER AND INFLAM OF 01/26/2019 BELLA ECHAVARRIA MD Ot L97.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 ULCER OF LEFT CALF 01/26/2019 BELLA ECHAVARRIA MD, Ot Z77.098 CONTACT W AND EXPSR TO [facility], CHIEF 01/26/2019 BELLA ECHAVARRIA MD, Ot Z94 .0 KIDNEY TRANSPLANT STATUS 01/26/2019 BELLA ECHAVARRIA MD, Ot E11.622 TYPE 2 DIABETES MELLITUS WITH OTHER SKIN 01/26/2019 BELLA ECHAVARRIA MD Ot I87.321 CHRONIC VENOUS HYPERTENSION W INFLAMMATI 01/26/2019 BELLA ECHAVARRIA MD Ot I87.332 CHRONIC VENOUS HTN W ULCER AND INFLAMMAT 01/26/2019 BELLA ECHAVARRIA MD, Ot L97.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 ULCER OF LEFT CALF 01/26/2019 BELLA ECHAVARRIA MD, Ot Z77.098 CONTACT W AND EXPSR TO [facility], CHIEF 01/26/2019 BELLA ECHAVARRIA MD, Ot Z94 .0 KIDNEY TRANSPLANT STATUS 01/27/2019 BELLA ECHAVARRIA MD, [...] Ot Z77.098 CONTACT W AND EXPSR TO [facility], CHIEF 01/27/2019 BELLA ECHAVARRIA MD, Ot Z94 .0 KIDNEY TRANSPLANT STATUS 01/29/2019 BELLA ECHAVARRIA MD, Ot E11.622 TYPE 2 DIABETES MELLITUS WITH OTHER SKIN 01/29/2019 BELLA ECHAVARRIA MD, Ot 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 01/29/2019 BELLA ECHAVARRIA MD Ot I87.321 CHRONIC VENOUS HYPERTENSION W INFLAMMATI 01/29/2019 BELLA ECHAVARRIA MD, Ot I87.332 CHRONIC VENOUS HTN W ULCER AND INFLAMMAT 01/29/2019 BELLA ECHAVARRIA MD, Ot L97.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 ULCER OF LEFT CALF 01/29/2019 BELLA ECHAVARRIA MD Ot Z57 .5 OCCUPATIONAL EXPOSURE TO TOXIC AGENTS IN 01/29/2019 BELLA ECHAVARRIA MD Ot Z94 .0 KIDNEY TRANSPLANT STATUS 01/29/2019 BELLA ECHAVARRIA MD, Ot E11.622 TYPE 2 DIABETES MELLITUS WITH OTHER SKIN 01/29/2019 BELLA ECHAVARRIA MD, Ot 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 01/29/2019 BELLA ECHAVARRIA MD Ot I87.321 CHRONIC VENOUS HYPERTENSION W INFLAMMATI 01/29/2019 BELLA ECHAVARRIA MD Ot I87.332 CHRONIC VENOUS HTN W ULCER AND INFLAMMAT 01/29/2019 BELLA ECHAVARRIA MD Ot L97.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 ULCER OF LEFT CALF 01/29/2019 BELLA ECHAVARRIA MD, Ot Z57 .5 OCCUPATIONAL EXPOSURE TO TOXIC AGENTS IN 01/29/2019 BELLA ECHAVARRIA MD, Ot Z94 .0 KIDNEY TRANSPLANT STATUS 01/29/2019 BELLA ECHAVARRIA MD, Ot E11.622 TYPE 2 DIABETES MELLITUS WITH OTHER SKIN 01/29/2019 BELLA ECHAVARRIA MD Ot 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 ULC 01/29/2019 BELLA ECHAVARRIA MD, Ot I87.321 CHRONIC VENOUS HYPERTENSION W INFLAMMATI 01/29/2019 BELLA ECHAVARRIA MD, Ot I87.332 CHRONIC VENOUS HTN W ULCER AND INFLAMMAT 01/29/2019 BELLA ECHAVARRIA MD, Ot L97.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 ULCER OF LEFT CALF 01/29/2019 BELLA ECHAVARRIA MD, Ot Z77.098 CONTACT W AND EXPSR TO [facility], CHIEF 01/29/2019 BELLA ECHAVARRIA MD, Ot Z94 .0 KIDNEY TRANSPLANT STATUS 01/29/2019 BELLA ECHAVARRIA MD, Ot E11.622 TYPE 2 DIABETES MELLITUS WITH OTHER SKIN 01/29/2019 BELLA ECHAVARRIA MD, Ot I87.321 CHRONIC VENOUS HYPERTENSION W INFLAMMATI 01/29/2019 BELLA ECHAVARRIA MD Ot I87.332 CHRONIC VENOUS HTN W ULCER AND INFLAMMAT 01/29/2019 BELLA ECHAVARRIA MD Ot L97.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 ULCER OF LEFT CALF 01/29/2019 BELLA ECHAVARRIA MD, Ot Z77.098 CONTACT W AND EXPSR TO [facility], CHIEF 01/29/2019 BELLA ECHAVARRIA MD, Ot Z94 .0 KIDNEY TRANSPLANT STATUS 01/29/2019 BELLA ECHAVARRIA MD, Ot E11.622 TYPE 2 DIABETES MELLITUS WITH OTHER SKIN 01/29/2019 BELLA ECHAVARRIA MD Ot I87.323 CHRONIC VENOUS HTN W INFLAMMATION OF [place] 01/29/2019 BELLA ECHAVARRIA MD Ot L97.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 ULCER OF LEFT CALF 01/29/2019 BELLA ECHAVARRIA MD, Ot Z77.098 CONTACT W AND EXPSR TO [facility], CHIEF 01/29/2019 BELLA ECHAVARRIA MD, Ot Z94 .0 KIDNEY TRANSPLANT STATUS 01/29/2019 JACEK GRIDER APRN Ot E11.622 TYPE 2 DIABETES MELLITUS WITH OTHER SKIN 01/29/2019 JACEK GRIDER PARTITION MAKING MACHINE OPERATOR Ot I87.321 CHRONIC VENOUS HYPERTENSION W INFLAMMATI 01/29/2019 JACEK GRIDER PARTITION MAKING MACHINE OPERATOR Ot I87.332 CHRONIC VENOUS HTN W ULCER AND INFLAMMAT 01/29/2019 JACEK GRIDER PARTITION MAKING MACHINE OPERATOR Ot L97.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 ULCER OF LEFT CALF 01/29/2019 JACEK GRIDER PARTITION MAKING MACHINE OPERATOR Ot Z77.098 CONTACT W AND EXPSR TO [facility], CHIEF 01/29/2019 JACEK GRIDER PARTITION MAKING MACHINE OPERATOR Ot Z94.0 KIDNEY TRANSPLANT STATUS 01/29/2019 BELAL ECHAVARRIA MD Ot E11.622 TYPE 2 DIABETES MELLITUS WITH OTHER SKIN 01/29/2019 BELLA ECHAVARRIA MD Ot I87.321 CHRONIC VENOUS HYPERTENSION W INFLAMMATI 01/29/2019 BELLA ECHAVARRIA MD Ot I87.332 CHRONIC VENOUS HTN W ULCER AND INFLAMMAT 01/29/2019 BELLA ECHAVARRIA MD Ot L97.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 ULCER OF LEFT CALF 01/29/2019 BELLA ECHAVARRIA MD Ot Z77.098 CONTACT W AND EXPSR TO [facility], CHIEF 01/29/2019 BELLA ECHAVARRIA MD Ot Z94 .0 KIDNEY TRANSPLANT STATUS 01/29/2019 BELLA ECHAVARRIA MD Ot E11.622 TYPE 2 DIABETES MELLITUS WITH OTHER SKIN 01/29/2019 BELLA ECHAVARRIA MD Ot I87.321 CHRONIC VENOUS HYPERTENSION W INFLAMMATI 01/29/2019 BELLA ECHAVARRIA MD Ot I87.332 CHRONIC VENOUS HTN W ULCER AND INFLAMMAT 01/29/2019 BELLA ECHAVARRIA MD Ot L97.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 ULCER OF LEFT CALF 01/29/2019 BELLA ECHAVARRIA MD Ot Z77.098 CONTACT W AND EXPSR TO [facility], CHIEF 01/29/2019 BELLA ECHAVRARIA MD Ot Z94 .0 KIDNEY TRANSPLANT STATUS 01/29/2019 BELLA ECHAVARRIA MD Ot E11.622 TYPE 2 DIABETES MELLITUS WITH OTHER SKIN 01/29/2019 BELLA ECHAVARRIA MD Ot I87.321 CHRONIC VENOUS HYPERTENSION W INFLAMMATI 01/29/2019 BELLA ECHAVARRIA MD Ot I87.332 CHRONIC VENOUS HTN W ULCER AND INFLAMMAT 01/29/2019 BELLA ECAHVARRIA MD Ot L97.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 ULCER OF LEFT CALF 01/29/2019 BELLA ECHAVARRIA MD, Ot Z77.098 CONTACT W AND EXPSR TO [facility], CHIEF 01/29/2019 BELLA ECHAVARRIA MD, Ot Z94 .0 KIDNEY TRANSPLANT STATUS 01/29/2019 BELLA ECHAVARRIA MD, Ot E11.628 TYPE 2 DIABETES MELLITUS WITH OTHER SKIN 01/29/2019 BELLA ECHAVARRIA MD, Ot I87.333 CHRONIC VENOUS HTN W ULCER AND INFLAM OF 01/29/2019 BELLA ECHAVARRIA MD, Ot L97.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 ULCER OF LEFT CALF 01/29/2019 BELLA ECHAVARRIA MD, Ot Z77.098 CONTACT W AND EXPSR TO [facility], CHIEF 01/29/2019 BELLA ECHAVARRIA MD, Ot Z94 .0 KIDNEY TRANSPLANT STATUS 01/29/2019 BELLA ECHAVARRIA MD, Ot E11.622 TYPE 2 DIABETES MELLITUS WITH OTHER SKIN 01/29/2019 BELLA ECHAVARRIA MD, Ot I87.333 CHRONIC VENOUS HTN W ULCER AND INFLAM OF 01/29/2019 BELLA ECHAVARRIA MD, Ot L97.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 ULCER OF LEFT CALF 01/29/2019 BELLA ECHAVARRIA MD, Ot Z77.098 CONTACT W AND EXPSR TO [facility], CHIEF 01/29/2019 BELLA ECHAVARRIA MD, Ot Z94 .0 KIDNEY TRANSPLANT STATUS 01/29/2019 MAYE ZENG MD Ot C44.5 29 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 01/29/2019 MAYE ZENG MD Ot 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 [place] AN 01/29/2019 MAYE ZENG MD Ot Z51.0 ENCOUNTER FOR ANTINEOPLASTIC RADIATION T 01/29/2019 BELLA ECHAVARRIA MD, Ot E11.622 TYPE 2 DIABETES MELLITUS WITH OTHER SKIN 01/29/2019 BELLA ECHAVARRIA MD, Ot I87.333 CHRONIC VENOUS HTN W ULCER AND INFLAM OF 01/29/2019 BELLA ECHAVARRIA MD, Ot L97.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 ULCER OF LEFT CALF 01/29/2019 BELLA ECHAVARRIA MD, Ot Z77.098 CONTACT W AND EXPSR TO [facility], CHIEF 01/29/2019 BELLA ECHAVARRIA MD, Ot Z94 .0 KIDNEY TRANSPLANT STATUS 01/29/2019 BELLA ECHAVARRIA MD, Ot E11.621 TYPE 2 DIABETES MELLITUS WITH FOOT ULCER 01/29/2019 BELLA ECHAVARRIA MD, Ot E11.622 TYPE 2 DIABETES MELLITUS WITH OTHER SKIN 01/29/2019 BELLA ECHAVARRIA MD, Ot I87.333 CHRONIC VENOUS HTN W ULCER AND INFLAM OF 01/29/2019 BELLA ECHAVARRIA MD Ot L97.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 ULCER OF LEFT CALF 01/29/2019 BELLA ECHAVARRIA MD, Ot L97.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 01/29/2019 BELLA ECHAVARRIA MD, Ot Z77.098 CONTACT W AND EXPSR TO [facility], CHIEF 01/29/2019 BELLA ECHAVARRIA MD, Ot Z94 .0 KIDNEY TRANSPLANT STATUS 01/29/2019 CHARLOTTE LOW DO, Ot E11.51 TYPE 2 DIABETES W DIABETIC PERIPHERAL AN 01/29/2019 CHARLOTTE LOW DO Ot E78.00 PURE HYPERCHOLESTEROLEMIA, UNSPECIFIED 01/29/2019 CHARLOTTE LOW DO Ot E87.5 HYPERKALEMIA 01/29/2019 CHARLOTTE LOW DO Ot I10 ESSENTIAL (PRIMARY) HYPERTENSION 01/29/2019 CHARLOTTE LOW DO Ot I25.10 ATHSCL HEART DISEASE OF [place] CORONARY 01/29/2019 CHARLOTTE LWO DO Ot M25.551 PAIN IN RIGHT HIP 01/29/2019 CHARLOTTE LOW DO Ot N28.9 DISORDER OF KIDNEY AND URETER, UNSPECIFI 01/29/2019 CHARLOTTE LOW DO Ot S72.091 A OTH FRACTURE OF HEAD AND NECK OF RIGHT F 01/29/2019 CHARLOTTE LOW DO Ot W01.0XX A FALL SAME LEV FROM SLIP/TRIP W/O STRIKE 01/29/2019 CHARLOTTE LOW DO, Ot Y92.[address] [facility] NON-INSTITUT RESDNCE SNGL 01/29/2019 CHARLOTTE LOW DO, Ot Z79.02 GYMNASTICS COACH (CURRENT) USE OF ANTITHROMBOTI 01/29/2019 CHARLOTTE LOW DO, Ot Z79.4 [facility] (CURRENT) USE OF INSULIN 01/29/2019 CHARLOTTE LOW DO, Ot Z80.0 FAMILY HISTORY OF MALIGNANT NEOPLASM OF 01/29/2019 CHARLOTTE LOW DO, Ot Z87.891 PERSONAL HISTORY OF NICOTINE DEPENDENCE 01/29/2019 DEVANTE [place]TE FRY Ot Z88.0 ALLERGY STATUS TO PENICILLIN 01/29/2019 DEVANTE CHARL[place]TE FRY Ot Z88.2 ALLERGY STATUS TO SULFONAMIDES STATUS 01/29/2019 DEVANTE CHARLOTTE FRY Ot Z94.0 KIDNEY TRANSPLANT STATUS 01/29/2019 DEVANTE CHARLOTTE FRY Ot Z95.5 PRESENCE OF CORONARY ANGIOPLASTY IMPLANT 02/01/2019 DEVANTE [place]TE FRY Ot E11.51 TYPE 2 DIABETES W DIABETIC PERIPHERAL AN 02/01/2019 DEVANTE CHARLOTTE FRY Ot E78.00 PURE HYPERCHOLESTEROLEMIA, UNSPECIFIED 02/01/2019 DEVANTE CHARLOTTE FRY Ot E87.5 HYPERKALEMIA 02/01/2019 DEVANTE CHARLOTTE FRY Ot I10 ESSENTIAL (PRIMARY) HYPERTENSION 02/01/2019 DEVANTE CHARLOTTE FRY Ot I25.10 ATHSCL HEART DISEASE OF [place] CORONARY 02/01/2019 DEVANTE CHARLOTTE FRY Ot M25.551 PAIN IN RIGHT HIP 02/01/2019 DEVANTE CHARLOTTE FRY Ot N28.9 DISORDER OF KIDNEY AND URETER, UNSPECIFI 02/01/2019 CHARLOTTE LOW DO Ot S72.091 A OTH FRACTURE OF HEAD AND NECK OF RIGHT F 02/01/2019 CHARLOTTE LOW DO Ot W01.0XX A FALL SAME LEV FROM SLIP/TRIP W/O STRIKE 02/01/2019 CHARLOTTE LOW DO Ot Y92.[address] [facility] NON-INSTITUT RESDNCE SNGL 02/01/2019 CHARLOTTE LOW DO Ot Z79.02 GYMNASTICS COACH (CURRENT) USE OF ANTITHROMBOTI 02/01/2019 CHARLOTTE LOW DO Ot Z79.4 GYMNASTICS COACH (CURRENT) USE OF INSULIN 02/01/2019 CHARLOTTE LOW DO Ot Z80.0 FAMILY HISTORY OF MALIGNANT NEOPLASM OF 02/01/2019 CHARLOTTE LOW DO Ot Z87.891 PERSONAL HISTORY OF NICOTINE DEPENDENCE 02/01/2019 CHARLOTTE LOW DO Ot Z88.0 ALLERGY STATUS TO PENICILLIN 02/01/2019 DEVANTE [place]TE FRY Ot Z88.2 ALLERGY STATUS TO SULFONAMIDES STATUS 02/01/2019 DEVANTE CHARLOTTE FRY Ot Z94.0 KIDNEY TRANSPLANT STATUS 02/01/2019 CHARLOTTE LOW DO Ot Z95.5 PRESENCE OF CORONARY ANGIOPLASTY IMPLANT 02/02/2019 BELLA ECHAVARRIA MD Ot E11.622 TYPE 2 DIABETES MELLITUS WITH OTHER SKIN 02/02/2019 BELLA ECHAVARRIA MD, Ot I87.333 CHRONIC VENOUS HTN W ULCER AND INFLAM OF 02/02/2019 BELLA ECHAVARRIA MD, Ot L97.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 ULCER OF LEFT CALF 02/02/2019 BELLA ECHAVARRIA MD, Ot Z77.098 CONTACT W AND EXPSR TO [facility], CHIEF 02/02/2019 BELLA ECHAVARRIA MD, Ot Z94 .0 KIDNEY TRANSPLANT STATUS 02/08/2019 CHARLOTTE LOW DO, Ot E11.51 TYPE 2 DIABETES W DIABETIC PERIPHERAL AN 02/08/2019 CHARLOTTE LOW DO, Ot E78.00 PURE HYPERCHOLESTEROLEMIA, UNSPECIFIED 02/08/2019 CHARLOTTE LOW DO Ot E87.5 HYPERKALEMIA 02/08/2019 CHARLOTTE LOW DO Ot I10 ESSENTIAL (PRIMARY) HYPERTENSION 02/08/2019 CHARLOTTE LOW DO, Ot I25.10 ATHSCL HEART DISEASE OF [place] CORONARY 02/08/2019 CHARLOTTE LOW DO Ot M25.551 PAIN IN RIGHT HIP 02/08/2019 CHARLOTTE LOW DO Ot N28.9 DISORDER OF KIDNEY AND URETER, UNSPECIFI 02/08/2019 CHARLOTTE LOW DO, Ot S72.091 A OTH FRACTURE OF HEAD AND NECK OF RIGHT F 02/08/2019 CHARLOTTE LOW DO, Ot W01.0XX A FALL SAME LEV FROM SLIP/TRIP W/O STRIKE 02/08/2019 CHARLOTTE LOW DO Ot Y92.[address] [facility] NON-INSTITUT RESDNCE SNGL 02/08/2019 CHARLOTTE LOW DO, Ot Z79.02 GYMNASTICS COACH (CURRENT) USE OF ANTITHROMBOTI 02/08/2019 CHARLOTTE LOW DO, Ot Z79.4 GYMNASTICS COACH (CURRENT) USE OF INSULIN 02/08/2019 CHARLOTTE LOW DO, Ot Z80.0 FAMILY HISTORY OF MALIGNANT NEOPLASM OF 02/08/2019 CHARLOTTE LOW DO, Ot Z87.891 PERSONAL HISTORY OF NICOTINE DEPENDENCE 02/08/2019 DEVANTE DO, CHARLOTTE K Ot Z88.0 ALLERGY STATUS TO PENICILLIN 02/08/2019 DEVANTE DO, CHARLOTTE K Ot Z88.2 ALLERGY STATUS TO SULFONAMIDES STATUS 02/08/2019 DEVANTE DO, CHARLOTTE K Ot Z94.0 KIDNEY TRANSPLANT STATUS 02/08/2019 DEVANTE DO, CHARLOTTE K Ot Z95.5 PRESENCE OF CORONARY ANGIOPLASTY IMPLANT 02/09/2019 BELLA ECHAVARRIA MD, Ot E11.622 TYPE 2 DIABETES MELLITUS WITH OTHER SKIN 02/09/2019 BELLA ECHAVARRIA MD, Ot I87.333 CHRONIC VENOUS HTN W ULCER AND INFLAM OF 02/09/2019 BELLA ECHAVARRIA MD, Ot L97.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 ULCER OF LEFT CALF 02/09/2019 BELLA ECHAVARRIA MD, Ot Z77.098 CONTACT W AND EXPSR TO OT [facility], CHIEF 02/09/2019 BELLA ECHAVARRIA MD, Ot Z94 .0 KIDNEY TRANSPLANT STATUS 02/14/2019 BELLA ECHAVARRIA MD, Ot E11.622 TYPE 2 DIABETES MELLITUS WITH OTHER SKIN 02/14/2019 BELLA ECHAVARRIA MD, Ot I87.333 CHRONIC VENOUS HTN W ULCER AND INFLAM OF 02/14/2019 BELLA ECHAVARRIA MD, Ot L97.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 ULCER OF LEFT CALF 02/14/2019 BELLA ECHAVARRIA MD, Ot Z77.098 CONTACT W AND EXPSR TO OT [facility], CHIEF 02/14/2019 BELLA ECHAVARRIA MD, Ot Z94 .0 KIDNEY TRANSPLANT STATUS 02/14/2019 BELLA ECHAVARRIA MD, Ot E11.622 TYPE 2 DIABETES MELLITUS WITH OTHER SKIN 02/14/2019 BELLA ECHAVARRIA MD, Ot I87.333 CHRONIC VENOUS HTN W ULCER AND INFLAM OF 02/14/2019 BELLA ECHAVARRIA MD, Ot L97.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 ULCER OF LEFT CALF 02/14/2019 BELLA ECHAVARRIA MD, Ot Z77.098 CONTACT W AND EXPSR TO OT [facility], CHIEF 02/14/2019 BELLA ECHAVARRIA MD, Ot Z94 .0 KIDNEY TRANSPLANT STATUS 02/21/2019 BELLA ECHAVARRIA MD, Ot E11.621 TYPE 2 DIABETES MELLITUS WITH FOOT ULCER 02/21/2019 BELLA ECHAVARRIA MD, Ot E11.622 TYPE 2 DIABETES MELLITUS WITH OTHER SKIN 02/21/2019 BELLA ECHAVARRIA MD, Ot I87.333 CHRONIC VENOUS HTN W ULCER AND INFLAM OF 02/21/2019 BELLA ECHAVARRIA MD, Ot L97.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 ULCER OF LEFT CALF 02/21/2019 BELLA ECHAVARRIA MD, Ot L97.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 02/21/2019 BELLA ECHAVARRIA MD, Ot Z77.098 CONTACT W AND EXPSR TO OTH [facility], CHIEF 02/21/2019 BELLA ECHAVARRIA MD, Ot Z94 .0 KIDNEY TRANSPLANT STATUS 03/14/2019 BELLA ECHAVARRIA MD, Ot E11.40 TYPE 2 DIABETES MELLITUS WITH DIABETIC N 03/14/2019 BELLA ECHAVARRIA MD, Ot E11.622 TYPE 2 DIABETES MELLITUS WITH OTHER SKIN 03/14/2019 BELLA ECHAVARRIA MD, Ot H26 .9 UNSPECIFIED CATARACT 03/14/2019 BELLA ECHAVARRIA MD, Ot I25.10 ATHSCL HEART DISEASE OF [place] CORONARY 03/14/2019 BELLA ECHAVARRIA MD, Ot L97.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 ULCER OF LEFT CALF 03/17/2019 BELLA ECHAVARRIA MD, Ot C44.209 UNSP MALIG NEOPLASM SKIN/ LEFT EAR AND E 03/17/2019 BELLA ECHAVARRIA MD, Ot E11.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 03/17/2019 BELLA ECHAVARRIA MD, Ot E11.622 TYPE 2 DIABETES MELLITUS WITH OTHER SKIN 03/17/2019 BELLA ECHAVARRIA MD, Ot I87.332 CHRONIC VENOUS HTN W ULCER AND INFLAMMAT 03/17/2019 BLELA ECHAVARRIA MD, Ot I96 GANGRENE, NOT ELSEWHERE CLASSIFIED 03/17/2019 BELLA ECHAVARRIA MD, Ot L97.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 ULCER OF LEFT CALF 03/17/2019 BELLA ECHAVARRIA MD, Ot Z94 .0 KIDNEY TRANSPLANT STATUS 03/23/2019 BELLA ECHAVARRIA MD, Ot C44.299 OTH MALIG NEOPLASM SKIN/ LEFT EAR AND EX 03/23/2019 BELLA ECHAVARRIA MD, Ot E11.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 03/23/2019 BELLA ECHAVARRIA MD, Ot E11.622 TYPE 2 DIABETES MELLITUS WITH OTHER SKIN 03/23/2019 BELLA ECHAVARRIA MD, Ot I87.332 CHRONIC VENOUS HTN W ULCER AND INFLAMMAT 03/23/2019 BELLA ECHAVARRIA MD, Ot I96 [place]GR[place], NOT ELSEWHERE CLASSIFIED 03/23/2019 BELLA ECHAVARRIA MD, Ot L97.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 ULCER OF LEFT CALF 03/23/2019 BELLA ECHAVARRIA MD, Ot Z77.098 CONTACT W AND EXPSR TO [facility], CHIEF 03/23/2019 BELLA ECHAVARRIA MD, Ot Z94 .0 KIDNEY TRANSPLANT STATUS 03/31/2019 BELLA ECHAVARRIA MD, Ot C44.209 UNSP MALIG NEOPLASM SKIN/ LEFT EAR AND E 03/31/2019 BELLA ECHAVARRIA MD, Ot E11.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 03/31/2019 BELLA ECHAVARRIA MD, Ot E11.622 TYPE 2 DIABETES MELLITUS WITH OTHER SKIN 03/31/2019 BELLA ECHAVARRIA MD, Ot I87.332 CHRONIC VENOUS HTN W ULCER AND INFLAMMAT 03/31/2019 BELLA ECHAVARRIA MD, Ot I96 [place]GR[place], NOT ELSEWHERE CLASSIFIED 03/31/2019 BELLA ECHAVARRIA MD, Ot L97.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 ULCER OF LEFT CALF 03/31/2019 BELLA ECHAVARRIA MD, Ot Z77.098 CONTACT W AND EXPSR TO [facility], CHIEF 03/31/2019 BELLA ECHAVARRIA MD, Ot Z94 .0 KIDNEY TRANSPLANT STATUS 04/06/2019 CHRISTOPHER SCHULTZ PARTITION MAKING MACHINE OPERATOR Ot M25.551 PAIN IN RIGHT HIP 04/06/2019 CHRISTOPHER SCHULTZ PARTITION MAKING MACHINE OPERATOR Ot W19.XXXA UNSPECIFIED FALL, INITIAL ENCOUNTER 04/06/2019 CHRISTOPHER SCHULTZ PARTITION MAKING MACHINE OPERATOR Ot Z98.890 OTHER SPECIFIED POSTPROCEDURAL STATES 04/07/2019 BELLA ECHAVARRIA MD, Ot C44.209 UNSP MALIG NEOPLASM SKIN/ LEFT EAR AND E 04/07/2019 BELLA ECHAVARRIA MD, Ot E11.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 04/07/2019 BELLA ECHAVARRIA MD, Ot E11.622 TYPE 2 DIABETES MELLITUS WITH OTHER SKIN 04/07/2019 BELLA ECHAVARRIA MD, Ot I87.332 CHRONIC VENOUS HTN W ULCER AND INFLAMMAT 04/07/2019 BELLA ECHAVARRIA MD, Ot I96 GANGRENE, NOT ELSEWHERE CLASSIFIED 04/07/2019 BELLA ECHAVARRIA MD, Ot L97.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 ULCER OF LEFT CALF 04/07/2019 BELLA ECHAVARRIA MD, Ot Z94 .0 KIDNEY TRANSPLANT STATUS 04/13/2019 BELLA ECHAVARRIA MD, Ot C44.209 UNSP MALIG NEOPLASM SKIN/ LEFT EAR AND E 04/13/2019 BELLA ECHAVARRIA MD, Ot E11.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 04/13/2019 BELLA ECHAVARRIA MD, Ot E11.622 TYPE 2 DIABETES MELLITUS WITH OTHER SKIN 04/13/2019 BELLA ECHAVARRIA MD Ot I87.332 CHRONIC VENOUS HTN W ULCER AND INFLAMMAT 04/13/2019 BELLA ECHAVARRIA MD, Ot I96 GANGRENE, NOT ELSEWHERE CLASSIFIED 04/13/2019 BELLA ECHAVARRIA MD, Ot L97.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 ULCER OF LEFT CALF 04/13/2019 BELLA ECHAVARRIA MD, Ot Z77.098 CONTACT W AND EXPSR TO [facility], CHIEF 04/13/2019 BELLA ECHAVARRIA MD, Ot Z94 .0 KIDNEY TRANSPLANT STATUS 04/14/2019 BELLA ECHAVARRIA MD, Ot C44.299 [facility] NEOPLASM SKIN/ LEFT EAR AND EX 04/14/2019 BELLA ECHAVARRIA MD, Ot E11.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 04/14/2019 BELLA ECHAVARRIA MD, Ot E11.622 TYPE 2 DIABETES MELLITUS WITH OTHER SKIN 04/14/2019 BELLA ECHAVARRIA MD, Ot I87.332 CHRONIC VENOUS HTN W ULCER AND INFLAMMAT 04/14/2019 BELLA ECHAVARRIA MD, Ot I96 GANGRENE, NOT ELSEWHERE CLASSIFIED 04/14/2019 BELLA ECHAVARRIA MD, Ot L97.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 ULCER OF LEFT CALF 04/14/2019 BELLA ECHAVARRIA MD, Ot Z77.098 CONTACT W AND EXPSR TO [facility], CHIEF 04/14/2019 BELLA ECHAVARRIA MD, Ot Z94 .0 KIDNEY TRANSPLANT STATUS 04/18/2019 BELLA ECHAVARRIA MD, Ot E11.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 04/18/2019 BELLA ECHAVARRIA MD, Ot E11.622 TYPE 2 DIABETES MELLITUS WITH OTHER SKIN 04/18/2019 BELLA ECHAVARRIA MD Ot I87.332 CHRONIC VENOUS HTN W ULCER AND INFLAMMAT 04/18/2019 BELLA ECHAVARRIA MD Ot I96 GANGRENE, NOT ELSEWHERE CLASSIFIED 04/18/2019 BELLA ECHAVARRIA MD, Ot L97.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 ULCER OF LEFT CALF 04/18/2019 BELLA ECHAVARRIA MD, Ot Z77.098 CONTACT W AND EXPSR TO [facility], CHIEF 04/18/2019 BELLA ECHAVARRIA MD Ot Z94 .0 KIDNEY TRANSPLANT STATUS 2019 BELLA ECHAVARRIA MD, Ot C44.209 UNSP MALIG NEOPLASM SKIN/ LEFT EAR AND E 2019 BELLA ECHAVARRIA MD Ot E11.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 2019 BELLA ECHAVARRIA MD Ot E11.622 TYPE 2 DIABETES MELLITUS WITH OTHER SKIN 2019 BELLA ECHAVARRIA MD Ot I87.332 CHRONIC VENOUS HTN W ULCER AND INFLAMMAT 2019 BELLA ECHAVARRIA MD Ot I96 GANGRENE, NOT ELSEWHERE CLASSIFIED 2019 BELLA ECHAVARRIA MD Ot L97.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 ULCER OF LEFT CALF 2019 BELLA ECHAVARRIA MD, Ot Z77.098 CONTACT W AND EXPSR TO [facility], CHIEF 2019 BELLA ECHAVARRIA MD, Ot Z94 .0 KIDNEY TRANSPLANT STATUS 04/27/2019 BELLA ECHAVARRIA MD Ot C44.209 UNSP MALIG NEOPLASM SKIN/ LEFT EAR AND E 04/27/2019 BELLA ECHAVARRIA MD Ot E11.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 04/27/2019 BELLA ECHAVARRIA MD Ot E11.622 TYPE 2 DIABETES MELLITUS WITH OTHER SKIN 04/27/2019 BELLA ECHAVARRIA MD Ot I87.332 CHRONIC VENOUS HTN W ULCER AND INFLAMMAT 04/27/2019 BELLA ECHAVARRIA MD Ot I96 GANGRENE, NOT ELSEWHERE CLASSIFIED 04/27/2019 BELLA ECHAVARRIA MD Ot L97.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 ULCER OF LEFT CALF 04/27/2019 BELLA ECHAVARRIA MD Ot Z77.098 [facility] 04/27/2019 BELLA ECHAVARRIA MD Ot Z94 .0 KIDNEY TRANSPLANT STATUS 04/27/2019 CHRISTOPHER SCHULTZ PARTITION MAKING MACHINE OPERATOR Ot M25.551 PAIN IN RIGHT HIP 04/27/2019 CHRISTOPHER SCHULTZ PARTITION MAKING MACHINE OPERATOR Ot W19.XXXA UNSPECIFIED FALL, INITIAL ENCOUNTER 04/27/2019 CHRISTOPHER SCHULTZ PARTITION MAKING MACHINE OPERATOR Ot Z98.890 OTHER SPECIFIED POSTPROCEDURAL STATES 04/28/2019 CHRISTOPHER SCHULTZ PARTITION MAKING MACHINE OPERATOR Ot M25.551 PAIN IN RIGHT HIP 04/28/2019 CHRISTOPHER SCHULTZ RASHEEDA Ot W19.XXXA UNSPECIFIED FALL, INITIAL ENCOUNTER 04/28/2019 CHRISTOPHER SCHULTZ RASHEEDA Ot Z98.890 OTHER SPECIFIED POSTPROCEDURAL STATES 04/28/2019 BELLA ECHAVARRIA MD, Ot C44.209 UNSP MALIG NEOPLASM SKIN/ LEFT EAR AND E 04/28/2019 BELLA ECHAVARRIA MD, Ot E11.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 04/28/2019 BELLA ECHAVARRIA MD, Ot E11.622 TYPE 2 DIABETES MELLITUS WITH OTHER SKIN 04/28/2019 BELLA ECHAVARRIA MD, Ot I87.332 CHRONIC VENOUS HTN W ULCER AND INFLAMMAT 04/28/2019 BELLA ECHAVARRIA MD, Ot I96 GANGRENE, NOT ELSEWHERE CLASSIFIED 04/28/2019 BELLA ECHAVARRIA MD, Ot L97.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 ULCER OF LEFT CALF 04/28/2019 BELLA ECHAVARRIA MD, Ot Z77.098 CONTACT W AND EXPSR TO [facility], CHIEF 04/28/2019 BELLA ECHAVARRIA MD, Ot Z94 .0 KIDNEY TRANSPLANT STATUS 05/05/2019 BELLA ECHAVARRIA MD, Ot C44.209 UNSP MALIG NEOPLASM SKIN/ LEFT EAR AND E 05/05/2019 BELLA ECHAVARRIA MD, Ot E11.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 05/05/2019 BELLA ECHAVARRIA MD, Ot E11.622 TYPE 2 DIABETES MELLITUS WITH OTHER SKIN 05/05/2019 BELLA ECHAVARRIA MD, Ot I87.332 CHRONIC VENOUS HTN W ULCER AND INFLAMMAT 05/05/2019 BELLA ECHAVARRIA MD, Ot I96 GANGRENE, NOT ELSEWHERE CLASSIFIED 05/05/2019 BELLA ECHAVARRIA MD, Ot L97.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 ULCER OF LEFT CALF 05/05/2019 BELLA ECHAVARRIA MD, Ot Z77.098 CONTACT W AND EXPSR TO OTH HAZARD, CHIEF 05/05/2019 BELLA ECHAVARRIA MD, Ot Z94 .0 KIDNEY TRANSPLANT STATUS 08/05/2019 BELLA ECHAVARRIA MD, Ot E11.622 TYPE 2 DIABETES MELLITUS WITH OTHER SKIN 08/05/2019 BELLA ECHAVARRIA MD, Ot 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 ULC 08/05/2019 BELLA ECHAVARRIA MD, Ot I87.321 CHRONIC VENOUS HYPERTENSION W INFLAMMATI 08/05/2019 BELLA ECHAVARRIA MD, Ot I87.332 CHRONIC VENOUS HTN W ULCER AND INFLAMMAT 08/05/2019 BELLA ECHAVARRIA MD, Ot L97.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 ULCER OF LEFT CALF 08/05/2019 BELLA ECHAVARRIA MD, Ot Z57 .5 OCCUPATIONAL EXPOSURE TO TOXIC AGENTS IN 08/05/2019 BELLA ECHAVARRIA MD, Ot Z94 .0 KIDNEY TRANSPLANT STATUS 08/05/2019 BELLA ECHAVARRIA MD, Ot E11.622 TYPE 2 DIABETES MELLITUS WITH OTHER SKIN 08/05/2019 BELLA ECHAVARRIA MD Ot 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 [facility] 08/05/2019 BELLA ECHAVARRIA MD, Ot I87.321 CHRONIC VENOUS HYPERTENSION W INFLAMMATI 08/05/2019 BELLA ECHAVARRIA MD, Ot I87.332 CHRONIC VENOUS HTN W ULCER AND INFLAMMAT 08/05/2019 BELLA ECHAVARRIA MD, Ot L97.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 ULCER OF LEFT CALF 08/05/2019 BELLA ECHAVARRIA MD, Ot Z57 .5 OCCUPATIONAL EXPOSURE TO TOXIC AGENTS IN 08/05/2019 BELLA ECHAVARRIA MD, Ot Z94 .0 KIDNEY TRANSPLANT STATUS 08/05/2019 BELLA ECHAVARRIA MD, Ot E11.622 TYPE 2 DIABETES MELLITUS WITH OTHER SKIN 08/05/2019 BELLA ECHAVARRIA MD Ot 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 [facility] 08/05/2019 BELLA ECHAVARRIA MD, Ot I87.321 CHRONIC VENOUS HYPERTENSION W INFLAMMATI 08/05/2019 BELLA ECHAVARRIA MD Ot I87.332 CHRONIC VENOUS HTN W ULCER AND INFLAMMAT 08/05/2019 BELLA ECHAVARRIA MD, Ot L97.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 ULCER OF LEFT CALF 08/05/2019 BELLA ECHAVARRIA MD Ot Z77.098 CONTACT W AND EXPSR TO OTH HAZARD, CHIEF 08/05/2019 BELLA ECHAVARRIA MD Ot Z94 .0 KIDNEY TRANSPLANT STATUS 08/05/2019 BELLA ECHAVARRIA MD, Ot E11.622 TYPE 2 DIABETES MELLITUS WITH OTHER SKIN 08/05/2019 BELLA ECHAVARRIA MD Ot I87.321 CHRONIC VENOUS HYPERTENSION W INFLAMMATI 08/05/2019 BELLA ECHAVARRIA MD Ot I87.332 CHRONIC VENOUS HTN W ULCER AND INFLAMMAT 08/05/2019 BELLA ECHAVARRIA MD Ot L97.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 ULCER OF LEFT CALF 08/05/2019 BELLA ECHAVARRIA MD Ot Z77.098 CONTACT W AND EXPSR TO OTH HAZARD, CHIEF 08/05/2019 BELLA ECHAVARRIA MD Ot Z94 .0 KIDNEY TRANSPLANT STATUS 08/05/2019 BELLA ECHAVARRIA MD Ot E11.622 TYPE 2 DIABETES MELLITUS WITH OTHER SKIN 08/05/2019 BELLA ECHAVARRIA MD Ot I87.323 CHRONIC VENOUS HTN W INFLAMMATION OF [place] 08/05/2019 BELLA ECHAVARRIA MD Ot L97.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 ULCER OF LEFT CALF 08/05/2019 BELLA ECHAVARRIA MD Ot Z77.098 CONTACT W AND EXPSR TO OTH HAZARD, CHIEF 08/05/2019 BELLA ECHAVARRIA MD Ot Z94 .0 KIDNEY TRANSPLANT STATUS 08/05/2019 JACEK GRIDER PARTITION MAKING MACHINE OPERATOR Ot E11.622 TYPE 2 DIABETES MELLITUS WITH OTHER SKIN 08/05/2019 JACEK GRIDER PARTITION MAKING MACHINE OPERATOR Ot I87.321 CHRONIC VENOUS HYPERTENSION W INFLAMMATI 08/05/2019 JACEK GRIDER PARTITION MAKING MACHINE OPERATOR Ot I87.332 CHRONIC VENOUS HTN W ULCER AND INFLAMMAT 08/05/2019 JACEK GRIDER PARTITION MAKING MACHINE OPERATOR Ot L97.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 ULCER OF LEFT CALF 08/05/2019 JACEK GRIDER PARTITION MAKING MACHINE OPERATOR Ot Z77.098 CONTACT W AND EXPSR TO OTH HAZARD, CHIEF 08/05/2019 JACEK GRIDER PARTITION MAKING MACHINE OPERATOR Ot Z94.0 KIDNEY TRANSPLANT STATUS 08/05/2019 BELLA ECHAVARRIA MD Ot E11.622 TYPE 2 DIABETES MELLITUS WITH OTHER SKIN 08/05/2019 BELLA ECHAVARRIA MD Ot I87.321 CHRONIC VENOUS HYPERTENSION W INFLAMMATI 08/05/2019 BELLA ECHAVARRIA MD Ot I87.332 CHRONIC VENOUS HTN W ULCER AND INFLAMMAT 08/05/2019 BELLA ECHAVARRIA MD Ot L97.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 ULCER OF LEFT CALF 08/05/2019 BELLA ECHAVARRIA MD Ot Z77.098 CONTACT W AND EXPSR TO OTH HAZARD, CHIEF 08/05/2019 BELLA ECHAVARRIA MD Ot Z94 .0 KIDNEY TRANSPLANT STATUS 08/05/2019 BELLA ECHAVARRIA MD Ot E11.622 TYPE 2 DIABETES MELLITUS WITH OTHER SKIN 08/05/2019 BELLA ECHAVARRIA MD Ot I87.321 CHRONIC VENOUS HYPERTENSION W INFLAMMATI 08/05/2019 BELLA ECHAVARRIA MD Ot I87.332 CHRONIC VENOUS HTN W ULCER AND INFLAMMAT 08/05/2019 BELLA ECHAVARRIA MD, Ot L97.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 ULCER OF LEFT CALF 08/05/2019 BELLA ECHAVARRIA MD Ot Z77.098 CONTACT W AND EXPSR TO OTH HAZARD, CHIEF 08/05/2019 BELLA ECHAVARRIA MD, Ot Z94 .0 KIDNEY TRANSPLANT STATUS 08/05/2019 BELLA ECHAVARRIA MD Ot E11.622 TYPE 2 DIABETES MELLITUS WITH OTHER SKIN 08/05/2019 BELLA ECHAVARRIA MD Ot I87.321 CHRONIC VENOUS HYPERTENSION W INFLAMMATI 08/05/2019 BELLA ECHAVARRIA MD, Ot I87.332 CHRONIC VENOUS HTN W ULCER AND INFLAMMAT 08/05/2019 BELLA ECHAVARRIA MD, Ot L97.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 ULCER OF LEFT CALF 08/05/2019 BELLA ECHAVARRIA MD, Ot Z77.098 CONTACT W AND EXPSR TO OTH HAZARD, CHIEF 08/05/2019 BELLA ECHAVARRIA MD, Ot Z94 .0 KIDNEY TRANSPLANT STATUS 08/05/2019 BELLA ECHAVARRIA MD, Ot E11.628 TYPE 2 DIABETES MELLITUS WITH OTHER SKIN 08/05/2019 BELLA ECHAVARRIA MD Ot I87.333 CHRONIC VENOUS HTN W ULCER AND INFLAM OF 08/05/2019 BELLA ECHAVARRIA MD, Ot L97.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 ULCER OF LEFT CALF 08/05/2019 BELLA ECHAVARRIA MD, Ot Z77.098 CONTACT W AND EXPSR TO OTH HAZARD, CHIEF 08/05/2019 BELLA ECHAVARRIA MD Ot Z94 .0 KIDNEY TRANSPLANT STATUS 08/05/2019 BELLA ECHAVARRIA MD, Ot E11.622 TYPE 2 DIABETES MELLITUS WITH OTHER SKIN 08/05/2019 BELLA ECHAVARRIA MD Ot I87.333 CHRONIC VENOUS HTN W ULCER AND INFLAM OF 08/05/2019 BELLA ECHAVARRIA MD, Ot L97.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 ULCER OF LEFT CALF 08/05/2019 BELLA ECHAVARRIA MD, Ot Z77.098 CONTACT W AND EXPSR TO OTH HAZARD, CHIEF 08/05/2019 BELLA ECHAVARRIA MD Ot Z94 .0 KIDNEY TRANSPLANT STATUS 08/05/2019 KARRI LINDQUIST, MAYE Carlson Ot C44.5 29 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 08/05/2019 MAYE ZENG MD, Ot 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 [place] AN 08/05/2019 MAYE ZENG MD, Ot Z51.0 ENCOUNTER FOR ANTINEOPLASTIC RADIATION T 08/05/2019 BELLA ECHAVARRIA MD, Ot E11.622 TYPE 2 DIABETES MELLITUS WITH OTHER SKIN 08/05/2019 BELLA ECHAVARRIA MD, Ot I87.333 CHRONIC VENOUS HTN W ULCER AND INFLAM OF 08/05/2019 BELLA ECHAVARRIA MD, Ot L97.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 ULCER OF LEFT CALF 08/05/2019 BELLA ECHAVARRIA MD, Ot Z77.098 CONTACT W AND EXPSR TO OTH HAZARD, CHIEF 08/05/2019 BELLA ECHAVARRIA MD, Ot Z94 .0 KIDNEY TRANSPLANT STATUS 08/05/2019 BELLA ECHAVARRIA MD, Ot E11.621 TYPE 2 DIABETES MELLITUS WITH FOOT ULCER 08/05/2019 BELLA ECHAVARRIA MD, Ot E11.622 TYPE 2 DIABETES MELLITUS WITH OTHER SKIN 08/05/2019 BELLA ECHAVARRIA MD, Ot I87.333 CHRONIC VENOUS HTN W ULCER AND INFLAM OF 08/05/2019 BELLA ECHAVARRIA MD, Ot L97.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 ULCER OF LEFT CALF 08/05/2019 BELLA ECHAVARRIA MD, Ot L97.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 08/05/2019 BELLA ECHAVARRIA MD, Ot Z77.098 CONTACT W AND EXPSR TO OTH HAZARD, CHIEF 08/05/2019 BELLA ECHAVARRIA MD, Ot Z94 .0 KIDNEY TRANSPLANT STATUS 08/05/2019 BELLA ECHAVARRIA MD, Ot E11.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 08/05/2019 BELLA ECHAVARRIA MD, Ot E11.622 TYPE 2 DIABETES MELLITUS WITH OTHER SKIN 08/05/2019 BELLA ECHAVARRIA MD, Ot I87.332 CHRONIC VENOUS HTN W ULCER AND INFLAMMAT 08/05/2019 BELLA ECHAVARRIA MD, Ot I96 GANGRENE, NOT ELSEWHERE CLASSIFIED 08/05/2019 BELLA ECHAVARRIA MD, Ot L97.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 ULCER OF LEFT CALF 08/05/2019 BELLA ECHAVARRIA MD, Ot Z77.098 CONTACT W AND EXPSR TO OTH HAZARD, CHIEF 08/05/2019 BELLA ECHAVARRIA MD, Ot Z94 .0 KIDNEY TRANSPLANT STATUS 08/05/2019 BELLA ECHAVARRIA MD Ot E11.40 TYPE 2 DIABETES MELLITUS WITH DIABETIC N 08/05/2019 BELLA ECHAVARRIA MD, Ot E11.622 TYPE 2 DIABETES MELLITUS WITH OTHER SKIN 08/05/2019 BELLA ECHAVARRIA MD, Ot H26 .9 UNSPECIFIED CATARACT 08/05/2019 BELLA ECHAVARRIA MD, Ot I25.10 ATHSCL HEART DISEASE OF [place] CORONARY 08/05/2019 BELLA ECHAVARRIA MD, Ot L97.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 ULCER OF LEFT CALF 08/05/2019 BELLA ECHAVARRIA MD, Ot C44.209 UNSP MALIG NEOPLASM SKIN/ LEFT EAR AND E 08/05/2019 BELLA ECHAVARRIA MD, Ot E11.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 08/05/2019 BELLA ECHAVARRIA MD, Ot E11.622 TYPE 2 DIABETES MELLITUS WITH OTHER SKIN 08/05/2019 BELLA ECHAVARRIA MD, Ot I87.332 CHRONIC VENOUS HTN W ULCER AND INFLAMMAT 08/05/2019 BELLA ECHAVARRIA MD, Ot I96 GANGRENE, NOT ELSEWHERE CLASSIFIED 08/05/2019 BELLA ECHAVARRIA MD, Ot L97.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 ULCER OF LEFT CALF 08/05/2019 BELLA ECHAVARRIA MD, Ot Z94 .0 KIDNEY TRANSPLANT STATUS 08/05/2019 BELLA ECHAVARRIA MD, Ot C44.299 OTH MALIG NEOPLASM SKIN/ LEFT EAR AND EX 08/05/2019 BELLA ECHAVARRIA MD, Ot E11.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 08/05/2019 BELLA ECHAVARRIA MD, Ot E11.622 TYPE 2 DIABETES MELLITUS WITH OTHER SKIN 08/05/2019 BELLA ECHAVARRIA MD, Ot I87.332 CHRONIC VENOUS HTN W ULCER AND INFLAMMAT 08/05/2019 BELLA ECHAVARRIA MD Ot I96 GANGRENE, NOT ELSEWHERE CLASSIFIED 08/05/2019 BELLA ECHAVARRIA MD Ot L97.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 ULCER OF LEFT CALF 08/05/2019 BELLA ECHAVARRIA MD Ot Z77.098 CONTACT W AND EXPSR TO OT HAZARD, CHIEF 08/05/2019 BELLA ECHAVARRIA MD, Ot Z94 .0 KIDNEY TRANSPLANT STATUS 08/05/2019 CHRISTOPHER SCHULTZ PARTITION MAKING MACHINE OPERATOR Ot M25.551 PAIN IN RIGHT HIP 08/05/2019 CHRISTOPHER SCHULTZ PARTITION MAKING MACHINE OPERATOR Ot W19.XXXA UNSPECIFIED FALL, INITIAL ENCOUNTER 08/05/2019 CHRISTOPHER SCHULTZ PARTITION MAKING MACHINE OPERATOR Ot Z98.890 OTHER SPECIFIED POSTPROCEDURAL STATES 08/05/2019 BELLA ECHAVARRIA MD Ot C44.209 UNSP MALIG NEOPLASM SKIN/ LEFT EAR AND E 08/05/2019 BELLA ECHAVARRIA MD Ot E11.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 08/05/2019 BELLA ECHAVARRIA MD, Ot E11.622 TYPE 2 DIABETES MELLITUS WITH OTHER SKIN 08/05/2019 BELLA ECHAVARRIA MD, Ot I87.332 CHRONIC VENOUS HTN W ULCER AND INFLAMMAT 08/05/2019 BELLA ECHAVARRIA MD Ot I96 GANGRENE, NOT ELSEWHERE CLASSIFIED 08/05/2019 BELLA ECHAVARRIA MD, Ot L97.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 ULCER OF LEFT CALF 08/05/2019 BELLA ECHAVARRIA MD, Ot Z77.098 CONTACT W AND EXPSR TO OT HAZARD, CHIEF 08/05/2019 BELLA ECHAVARRIA MD Ot Z94 .0 KIDNEY TRANSPLANT STATUS 08/05/2019 BELLA ECHAVARRIA MD, Ot C44.209 UNSP MALIG NEOPLASM SKIN/ LEFT EAR AND E 08/05/2019 BELLA ECHAVARRIA MD, Ot E11.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 08/05/2019 BELLA ECHAVARRIA MD Ot E11.622 TYPE 2 DIABETES MELLITUS WITH OTHER SKIN 08/05/2019 BELLA ECHAVARRIA MD Ot I87.332 CHRONIC VENOUS HTN W ULCER AND INFLAMMAT 08/05/2019 BELLA ECHAVARRIA MD, Ot I96 GANGRENE, NOT ELSEWHERE CLASSIFIED 08/05/2019 BELLA ECHAVARRIA MD, Ot L97.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 ULCER OF LEFT CALF 08/05/2019 BELLA ECHAVARRIA MD, Ot Z77.098 CONTACT W AND EXPSR TO OTH HAZARD, CHIEF 08/05/2019 BELLA ECHAVARRIA MD, Ot Z94 .0 KIDNEY TRANSPLANT STATUS 11/14/2019 David Morel 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 Results Test Result Range Capillary blood glucose measurement by g lucometer (mass/volume) - 10/06/18 18:39 Capillary blood glucose measurement by glucometer (mas s/volume) 155 mg/dL 70-110 Automated blood complete blood count ( mogram) panel - 10/06/18 19:25 Blood leukocytes automated count (number/volume) 11.8 10*3/uL 4.3-11.0 Blood erythrocytes automated count (number/volume) 4.71 10*6/uL 4.35-5.85 Venous blood hemoglobin measurement (mass/volume) 13.8 g/dL 13.3-17.7 Blood hematocrit (volume fraction) 44 % 40-54 Automated erythrocyte mean corpuscular volume 93 [ foz_us] 80-99 Automated erythrocyte mean corpuscular h emoglobin (mass per erythrocyte) 29 pg 25-34 Automated erythrocyte mean corpuscular h emoglobin concentration measurement (mass/volume) 31 g/dL 32-36 Automated erythrocyte distribution width ratio 13. 0 % 10.0- 14.5 Automated blood platelet count [...] 5-14 Serum or plasma urea nitrogen measurement (mass/volume ) 26 mg/dL 7-18 Serum or plasma creatinine measurement (mass/volume) 1.51 mg/dL 0.60-1.30 Serum or plasma urea nitrogen/creatinine mass ratio 17 NRG Serum or plasma creatinine measurement w ith calculation of estimated glomerular filtration rate 45 NRG Serum or plasma glucose measurement (mass/volume) 162 mg/dL 70-105 Serum or plasma calcium measurement (mass/volume) 10.0 mg/dL 8.5-10.1 Serum or plasma total bilirubin measurement (mass/volu me) 0.4 mg/dL 0.1-1.0 Serum or plasma alkaline phosphatase antwan surement (enzymatic activity/volume) 106 U/L 40-136 Serum or plasma aspartate aminotransfera se measurement (enzymatic activity/volume) 17 U/L 5-34 Serum or plasma alanine aminotransferase measurement (enzymatic activity/volume) 14 U/L 0-55 Serum or plasma protein measurement (mass/volume) 8.1 g/dL 6.4-8.2 Serum or plasma albumin measurement (mass/volume) 3.8 g/dL 3.2-4.5 CALCIUM CORRECTED 10.2 mg/dL 8.5-10.1 TROPONIN T - 10/06/18 19:25 TROPONIN T 20 % <=15 Capillary blood glucose measurement by g lucometer (mass/volume) - 10/06/18 22:46 Capillary blood glucose measurement by glucometer (mas s/volume) 120 mg/dL 70-110 Capillary blood glucose measurement by g lucometer (mass/volume) - 10/07/18 01:17 Capillary blood glucose measurement by glucometer (mas s/volume) 220 mg/dL 70-110 Capillary blood glucose measurement by g lucometer (mass/volume) - 10/07/18 02:09 Capillary blood glucose measurement by glucometer (mas s/volume) 222 mg/dL 70-110 Serum or plasma troponin i.cardiac measu rement (mass/volume) - 10/07/18 02:10 Serum or plasma troponin i.cardiac measurement (mass/v olume) < ng/mL <0.028 Capillary blood glucose measurement by g lucometer (mass/volume) - 10/07/18 03:44 Capillary blood glucose measurement by glucometer (mas s/volume) 255 mg/dL 70-110 Capillary blood glucose measurement by g lucometer (mass/volume) - 10/07/18 05:03 Capillary blood glucose measurement by glucometer (mas s/volume) 185 mg/dL 70-110 Complete blood count (CBC) with automate d white blood cell (WBC) differential - 10/07/18 05:45 Blood leukocytes automated count (number/volume) 10.6 10*3/uL 4.3-11.0 Blood erythrocytes automated count (number/volume) 4.49 10*6/uL 4.35-5.85 Venous blood hemoglobin measurement (mass/volume) 12.9 g/dL 13.3-17.7 Blood hematocrit (volume fraction) 41 % 40-54 Automated erythrocyte mean corpuscular volume 91 [ foz_us] 80-99 Automated erythrocyte mean corpuscular h emoglobin (mass per erythrocyte) 29 pg 25-34 Automated erythrocyte mean corpuscular h emoglobin concentration measurement (mass/volume) 32 g/dL 32-36 Automated erythrocyte distribution width ratio 13. 6 % 10.0- 14.5 Automated blood platelet count [...] 10*3 1.0-4.0 Blood monocytes automated count (number/volume) 1. 6 10*3 0.0-1.0 Automated eosinophil count 0.2 10*3/uL 0 .0-0.3 Automated blood basophil count (count/volume) 0.0 10*3/uL 0.0-0.1 Comprehensive metabolic panel - 10/07/18 05:45 Serum or plasma sodium measurement (moles/volume) 138 mmol/L 135-145 Serum or plasma potassium measurement (moles/volume) 5.7 mmol/L 3.6-5.0 Serum or plasma chloride measurement (moles/volume) 110 mmol/L 98-107 Carbon dioxide 20 mmol/L 21-32 Serum or plasma anion gap determination (moles/volume) 8 mmol/L 5-14 Serum or plasma urea nitrogen measurement (mass/volume ) 27 mg/dL 7-18 Serum or plasma creatinine measurement (mass/volume) 1.52 mg/dL 0.60-1.30 Serum or plasma urea nitrogen/creatinine mass ratio 18 NRG Serum or plasma creatinine measurement w ith calculation of estimated glomerular filtration rate 45 NRG Serum or plasma glucose measurement (mass/volume) 199 mg/dL 70-105 Serum or plasma calcium measurement (mass/volume) 9.6 mg/dL 8.5-10.1 Serum or plasma total bilirubin measurement (mass/volu me) 0.4 mg/dL 0.1-1.0 Serum or plasma alkaline phosphatase antwan surement (enzymatic activity/volume) 94 U/L 40-136 Serum or plasma aspartate aminotransfera se measurement (enzymatic activity/volume) 19 U/L 5-34 Serum or plasma alanine aminotransferase measurement (enzymatic activity/volume) 14 U/L 0-55 Serum or plasma protein measurement (mass/volume) 7.1 g/dL 6.4-8.2 Serum or plasma albumin measurement (mass/volume) 3.5 g/dL 3.2-4.5 CALCIUM CORRECTED 10.0 mg/dL 8.5-10.1 Capillary blood glucose measurement by g lucometer (mass/volume) - 10/07/18 06:02 Capillary blood glucose measurement by glucometer (mas s/volume) 181 mg/dL 70-110 Capillary blood glucose measurement by g lucometer (mass/volume) - 10/07/18 06:55 Capillary blood glucose measurement by glucometer (mas s/volume) 198 mg/dL 70-110 Serum or plasma troponin i.cardiac measu rement (mass/volume) - 10/07/18 07:40 Serum or plasma troponin i.cardiac measurement (mass/v olume) < ng/mL <0.028 Serum or plasma potassium measurement (m oles/volume) - 10/07/18 07:40 Serum or plasma potassium measurement (moles/volume) 5.5 mmol/L 3.6-5.0 Capillary blood glucose measurement by g lucometer (mass/volume) - 10/07/18 08:38 Capillary blood glucose measurement by glucometer (mas s/volume) 291 mg/dL 70-110 Serum or plasma potassium measurement (m oles/volume) - 10/07/18 13:45 Serum or plasma potassium measurement (moles/volume) 5.6 mmol/L 3.6-5.0 Capillary blood glucose measurement by g lucometer (mass/volume) - 10/07/18 15:01 Capillary blood glucose measurement by glucometer (mas s/volume) 136 mg/dL 70-110 Bacteria identification in isolate by an aerobe culture - 11/05/18 14:23 Bacteria identification in isolate by anaerobe culture NOANA NR Gram stain microscopy - 11/05/18 14:23 Gram stain microscopy [id number]. NRG Bacteria identification in wound by cult ure - 11/05/18 14:23 Bacteria identification in wound by culture [id number] [facility] FREE TEXT EXTERNAL SUSCEPTIBILITY REPORTED [id number]. NRG QUANTITY OF GROWTH Rare NR FREE TEXT ENTRY 2 METHICILLIN-SENSITIVE STAPH IVORY [facility] Sensitivity Panel - 11/05/18 14:23 Oxacillin susceptibility test by minimum inhibitory co ncentration 0.5 NRG Clindamycin susceptibility test by minimum inhibitory concentration <= NRG Erythromycin susceptibility test by minimum inhibitory concentration <= NRG Trimethoprim/sulfamethoxazole susceptibi lity test by minimum inhibitoryconcentration S NRG Vancomycin susceptibility test by minimum inhibitory c oncentration 1 NRG Levofloxacin susceptibility test by minimum inhibitory concentration <= NRG Rifampin susceptibility test by minimum inhibitory con centration <= NRG Cefazolin susceptibility test by minimum inhibitory co ncentration <= NRG Linezolid susceptibility test by minimum inhibitory co ncentration 2 NRG Moxifloxacin susceptibility test by minimum inhibitory concentration <= NRG Minocycline [facility] [place] JOHNATHAN <= NRG RML Sensitivity Panel - 11/05/18 14:23 Gentamicin susceptibility test by minimum inhibitory c oncentration <= NRG Trimethoprim/sulfamethoxazole susceptibi lity test by minimum inhibitoryconcentration S NRG Levofloxacin susceptibility test by minimum inhibitory concentration <= NRG Ampicillin susceptibility test by minimum inhibitory c oncentration <= NRG Cefazolin susceptibility test by minimum inhibitory co ncentration <= NRG Ceftriaxone susceptibility test by minimum inhibitory concentration <= NRG Piperacillin/tazobactam susceptibility t est by minimum inhibitory concentration S NRG Ciprofloxacin susceptibility test by minimum inhibitor y concentration <= NRG Meropenem susceptibility test by minimum inhibitory co ncentration <= NRG Amoxicillin and clavulanate potassium susc JOHNATHAN <= NRG Imipenem susceptibility test by minimum inhibitory con centration <= NRG Hemoglobin A1c - 11/05/18 15:12 Blood hemoglobin A1C measurement (mass/volume) 7.6 % 4.0-5.6 MEAN BLOOD GLUCOSE 171 % <=126 Gram stain microscopy - 11/26/18 09:11 Gram stain microscopy No bacteria seen NRG Bacteria identification in wound by cult ure - 11/26/18 09:11 Bacteria identification in wound by culture NG NRG Gram stain microscopy - 01/17/19 08:42 Gram stain microscopy No bacteria seen NRG Bacteria identification in wound by cult ure - 01/17/19 08:42 Bacteria identification in wound by culture [id number] NRG FREE TEXT EXTERNAL SUSCEPTIBILITY REPORTED 01-21-195 NRG QUANTITY OF GROWTH Rare NRG FREE TEXT ENTRY 2 SEE COMMENTS NRG Complete blood count (CBC) with automate d white blood cell (WBC) differential - 01/29/19 04:49 Blood leukocytes automated count (number/volume) 5.2 10*3/uL 4.3-11.0 Blood erythrocytes automated count (number/volume) 4.89 10*6/uL 4.35-5.85 Venous blood hemoglobin measurement (mass/volume) 11.5 g/dL 13.3-17.7 Blood hematocrit (volume fraction) 38 % 40-54 Automated erythrocyte mean corpuscular volume 77 [ foz_us] 80-99 Automated erythrocyte mean corpuscular h emoglobin (mass per erythrocyte) 24 pg 25-34 Automated erythrocyte mean corpuscular h emoglobin concentration measurement (mass/volume) 31 g/dL 32-36 Automated erythrocyte distribution width ratio 16. 5 % 10.0- 14.5 Automated blood platelet count (count/volume) 222 10*3/uL 130-400 Automated blood platelet mean volume measurement 10.1 [foz_us] 7.4-10.4 Automated blood neutrophils/100 leukocytes 66 % 42-75 Automated blood lymphocytes/100 leukocytes 16 % 12-44 Blood monocytes/100 leukocytes 15 % 0-12 Automated blood eosinophils/100 leukocytes 3 % 0-10 Automated blood basophils/100 leukocytes 0 % 0-10 Blood neutrophils automated count (number/volume) 3.5 10*3 1.8-7.8 Blood lymphocytes automated count (number/volume) 0.8 10*3 1.0-4.0 Blood monocytes automated count (number/volume) 0. 8 10*3 0.0-1.0 Automated eosinophil count 0.2 10*3/uL 0 .0-0.3 Automated blood basophil count (count/volume) 0.0 10*3/uL 0.0-0.1 PT panel in platelet poor plasma by coag ulation assay - 01/29/19 04:49 Prothrombin time (PT) in platelet poor plasma by coagu lation assay 15.5 s 12.2-14.7 INR in platelet poor plasma or blood by coagulation as say 1.2 0.8-1.4 Activated partial thromboplastin time (a PTT) in platelet poor plasma bycoagulation assay - 01/29/19 04:49 Activated partial thromboplastin time (a PTT) in platelet poor plasma bycoagulation assay 38 s 24-35 Comprehensive metabolic panel - 01/29/19 04:49 Serum or plasma sodium measurement (moles/volume) 133 mmol/L 135-145 Serum or plasma potassium measurement (moles/volume) 5.8 mmol/L 3.6-5.0 Serum or plasma chloride measurement (moles/volume) 104 mmol/L 98-107 Carbon dioxide 20 mmol/L 21-32 Serum or plasma anion gap determination (moles/volume) 9 mmol/L 5-14 Serum or plasma urea nitrogen measurement (mass/volume ) 23 mg/dL 7-18 Serum or plasma creatinine measurement (mass/volume) 1.70 mg/dL 0.60-1.30 Serum or plasma urea nitrogen/creatinine mass ratio 14 NRG Serum or plasma creatinine measurement w ith calculation of estimated glomerular filtration rate 40 NRG Serum or plasma glucose measurement (mass/volume) 115 mg/dL 70-105 Serum or plasma calcium measurement (mass/volume) 9.3 mg/dL 8.5-10.1 Serum or plasma total bilirubin measurement (mass/volu me) 0.3 mg/dL 0.1-1.0 Serum or plasma alkaline phosphatase antwan surement (enzymatic activity/volume) 80 U/L 40-136 Serum or plasma aspartate aminotransfera se measurement (enzymatic activity/volume) 24 U/L 5-34 Serum or plasma alanine aminotransferase measurement (enzymatic activity/volume) 13 U/L 0-55 Serum or plasma protein measurement (mass/volume) 7.4 g/dL 6.4-8.2 Serum or plasma albumin measurement (mass/volume) 3.0 g/dL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
== END 2020-02-09 14:37 | disposition home or self-care (01) ==
LOC: EDUNIT# 12:59 → ER FS 13:00
DX: R62.7 Adult failure to thrive (principal); C4A.9 Merkel cell carcinoma, unspecified; G93.40 Encephalopathy, unspecified; E83.52 Hypercalcemia; R63.8 Other symptoms and signs concerning food and fluid intake; I10 Essential (primary) hypertension; I25.10 Atherosclerotic heart disease of native coronary artery without angina pectoris; E78.00 Pure hypercholesterolemia, unspecified; E11.9 Type 2 diabetes mellitus without complications; Z68.27 Body mass index [BMI] 27.0-27.9, adult; Z88.0 Allergy status to penicillin; Z79.82 Long term (current) use of aspirin; Z79.02 Long term (current) use of antithrombotics/antiplatelets; Z79.4 Long term (current) use of insulin; Z95.5 Presence of coronary angioplasty implant and graft; Z94.0 Kidney transplant status; Z82.49 Family history of ischemic heart disease and other diseases of the circulatory system; Z80.0 Family history of malignant neoplasm of digestive organs
CPT/HCPCS: 36415; 70450; 71045; 80053; 83690; 83735; 83880; 84484; 85025; 85610; 85730